=== PATIENT | male | born 1935 | race Caucasian/White ===

== ENCOUNTER → 2023-12-06 09:04 | Outpatient (REF) | payer OTHER, SELFPAY ==
[2023-12-06 09:47] LABS: Ammonia < 9 umol/L (9-30)
[2023-12-06 09:52] LABS: INR 0.99; PT 12.9 Sec (11.4-14.6)
[2023-12-06 09:53] LABS: APTT 30.3 Sec (23.4-35.0)
[2023-12-06 09:59] LABS: ALT (SGPT) 41 U/L (0-50); AST (SGOT) 38 U/L (17-59); Albumin 4.5 g/dl (3.5-5.0); Alkaline Phosphatase 99 U/L (38-126); Blood Urea Nitrogen 20 mg/dl (9-20); Calcium 10.3 mg/dl (8.4-10.2); Carbon Dioxide 28 mmol/L (22-30); Chloride 100 mmol/L (98-107); Glucose 98 mg/dl (70-99); Potassium 3.8 mmol/L (3.5-5.1); Sodium 134 mmol/L (135-145); Total Bilirubin 0.5 mg/dl (0.2-1.3); Total Protein 7.3 g/dl (6.3-8.2); eGFR > 60.00
[2023-12-06 10:35] LABS: AFP Male/Tumor Marker 1.14 ng/ml
== END ==
LOC: REG 09:04
PROVIDERS: ATTENDING PHYSICIAN Internal Medicine Gastroenterology; FAMILY PHYSICIAN Internal Medicine; REFERRING PHYSICIAN Physician Assistant Medical
DX: K74.60 Unspecified cirrhosis of liver (principal); L29.8 Other pruritus
CPT/HCPCS: 36415; 80053; 82105; 82140; 85610; 85730

== ENCOUNTER → 2023-12-08 08:40 | Outpatient (REF) | payer OTHER, SELFPAY ==
[2023-12-08 12:48] LABS: % Basophils 0.5 % (0-2); % Eosinophils 1.1 % (0-6); % Immature Granulocytes 1.2 % (0-0.5); % Lymphocytes 17.9 % (20.5-51.1); % Monocytes 9.3 % (1.7-9.3); Absolute Eosinophils 0.1 10^3/uL (0-0.7); Absolute Immature Granulocytes 0.1 10^3/uL (0-0.05); Absolute Lymphocytes 1.5 10^3/uL (1.2-3.4); Absolute Monocytes 0.8 10^3/uL (0.1-0.6); Absolute Neutrophils 5.8 10^3/uL (1.4-6.5); Hematocrit 38.8 % (39.0-52.0); Hemoglobin 13.3 g/dL (13.0-18.0); Mean Corp Hgb Conc. 34.3 g/dL (33.0-37.0); Mean Corpuscular Hgb 33.5 pg (27.0-31.0); Mean Corpuscular Volume 97.7 fL (80.0-94.0); Mean Platelet Volume 10.1 fL (7.4-10.4); Nucleated Red Blood Cells % 0 % (-); Platelet Count 144 10^3/uL (130-400); Red Blood Cell Count 3.97 10^6/uL (4.70-6.10); White Blood Cell Count 8.3 10^3/uL (4.8-10.8)
[2023-12-08 12:59] LABS: ALT (SGPT) 40 U/L (0-50); AST (SGOT) 37 U/L (17-59); Albumin 4.2 g/dl (3.5-5.0); Alkaline Phosphatase 84 U/L (38-126); Blood Urea Nitrogen 19 mg/dl (9-20); Calcium 10.2 mg/dl (8.4-10.2); Carbon Dioxide 29 mmol/L (22-30); Chloride 99 mmol/L (98-107); Glucose 94 mg/dl (70-99); Iron 111 ug/dl (49-181); Potassium 4.7 mmol/L (3.5-5.1); Sodium 136 mmol/L (135-145); Total Bilirubin 0.6 mg/dl (0.2-1.3); Total Protein 6.9 g/dl (6.3-8.2); eGFR > 60.00
[2023-12-08 13:09] LABS: Percent Saturation 39 % (20-50); Total Iron Binding Capacity 284 ug/dl (261-462)
[2023-12-08 13:14] LABS: Free T4 1.23 ng/dl (0.78-2.19)
[2023-12-08 13:28] LABS: TSH 0.92 uIU/ml (0.47-4.68)
[2023-12-08 14:10] LABS: Glycohemoglobin (HgbA1c) 5.7 % (4.0-5.6)
== END ==
LOC: HWLAB 08:40
PROVIDERS: ATTENDING PHYSICIAN Physician Assistant Medical; FAMILY PHYSICIAN Internal Medicine
DX: L29.8 Other pruritus (principal)
CPT/HCPCS: 36415; 80053; 82248; 83036; 83540; 83550; 84439; 84443; 85025

== ENCOUNTER → 2023-12-14 13:22 | Outpatient (REF) | payer OTHER, SELFPAY | LOC: HWRAD 13:22 | PROVIDERS: ATTENDING PHYSICIAN Internal Medicine | DX: R22.32 Localized swelling, mass and lump, left upper limb (principal) | CPT/HCPCS: 76882 ==

== ENCOUNTER → 2023-12-22 07:30 | Outpatient (REF) | payer OTHER, SELFPAY | LOC: PAVMRI 07:30 | PROVIDERS: ATTENDING PHYSICIAN Internal Medicine Gastroenterology; FAMILY PHYSICIAN Internal Medicine | DX: K74.60 Unspecified cirrhosis of liver (principal) | CPT/HCPCS: 74183; A9581 ==

== ENCOUNTER → 2024-01-17 08:34 | Outpatient (REF) | payer OTHER, SELFPAY ==
[2024-01-17 11:40] LABS: % Basophils 0.6 % (0-2); % Eosinophils 1.4 % (0-6); % Immature Granulocytes 1.2 % (0-0.5); % Lymphocytes 15.9 % (20.5-51.1); % Neutrophils 71.9 % (42.2-75.2); Absolute Basophils 0.1 10^3/uL (0-0.2); Absolute Eosinophils 0.2 10^3/uL (0-0.7); Absolute Immature Granulocytes 0.1 10^3/uL (0-0.05); Absolute Lymphocytes 1.7 10^3/uL (1.2-3.4); Absolute Monocytes 0.9 10^3/uL (0.1-0.6); Absolute Neutrophils 7.4 10^3/uL (1.4-6.5); Hematocrit 38.5 % (39.0-52.0); Hemoglobin 13.4 g/dL (13.0-18.0); Mean Corp Hgb Conc. 34.8 g/dL (33.0-37.0); Mean Corpuscular Hgb 34.1 pg (27.0-31.0); Mean Platelet Volume 9.8 fL (7.4-10.4); Nucleated Red Blood Cells % 0 % (-); Platelet Count 157 10^3/uL (130-400); Red Blood Cell Count 3.93 10^6/uL (4.70-6.10); Red Cell Dist. Width 14.4 % (11.5-14.5); White Blood Cell Count 10.4 10^3/uL (4.8-10.8)
[2024-01-17 11:45] LABS: ALT (SGPT) 52 U/L (0-50); AST (SGOT) 36 U/L (17-59); Alkaline Phosphatase 95 U/L (38-126); Blood Urea Nitrogen 20 mg/dl (9-20); Calcium 10.3 mg/dl (8.4-10.2); Carbon Dioxide 29 mmol/L (22-30); Chloride 103 mmol/L (98-107); Glucose 91 mg/dl (70-99); Potassium 4.1 mmol/L (3.5-5.1); Sodium 135 mmol/L (135-145); Total Bilirubin 0.6 mg/dl (0.2-1.3); Total Protein 6.7 g/dl (6.3-8.2); Uric Acid 4.9 mg/dl (3.5-8.5); eGFR > 60.00
[2024-01-17 11:50] LABS: C-Reactive Protein < 5.00 mg/L (0.0-10.00)
[2024-01-17 11:53] LABS: Erythrocyte Sed Rate 26 mm/hour (0-20)
== END ==
LOC: HWLAB 08:34
PROVIDERS: ATTENDING PHYSICIAN Internal Medicine Rheumatology; FAMILY PHYSICIAN Internal Medicine; REFERRING PHYSICIAN Internal Medicine Interventional Cardiology
DX: M11.20 Other chondrocalcinosis, unspecified site (principal); M1A.09X0 Idiopathic chronic gout, multiple sites, without tophus (tophi); R94.5 Abnormal results of liver function studies; Z51.81 Encounter for therapeutic drug level monitoring
CPT/HCPCS: 36415; 80053; 84550; 85025; 85652; 86140

== ENCOUNTER → 2024-01-31 08:57 | Outpatient (REF) | payer OTHER, SELFPAY ==
[2024-01-31 12:11] LABS: HDL Cholesterol 81 mg/dl; LDL Cholesterol, Calculated 78 mg/dl; Total Cholesterol 172 mg/dl (50-199); Triglyceride 65 mg/dl (10-149); Very Low Density Lipoprotein 13 mg/dl (0-30)
== END ==
LOC: HWLAB 08:57
PROVIDERS: ATTENDING PHYSICIAN Internal Medicine
DX: E78.5 Hyperlipidemia, unspecified (principal)
CPT/HCPCS: 36415; 80061

== ENCOUNTER → 2024-04-23 09:02 | Outpatient (REF) | payer OTHER, SELFPAY ==
[2024-04-23 11:39] LABS: % Basophils 0.6 % (0-2); % Eosinophils 1.8 % (0-6); % Immature Granulocytes 0.8 % (0-0.5); % Monocytes 10.5 % (1.7-9.3); % Neutrophils 70.3 % (42.2-75.2); Absolute Basophils 0.1 10^3/uL (0-0.2); Absolute Eosinophils 0.2 10^3/uL (0-0.7); Absolute Immature Granulocytes 0.1 10^3/uL (0-0.05); Absolute Lymphocytes 1.3 10^3/uL (1.2-3.4); Absolute Monocytes 0.9 10^3/uL (0.1-0.6); Absolute Neutrophils 5.8 10^3/uL (1.4-6.5); Hemoglobin 12.4 g/dL (13.0-18.0); Mean Corp Hgb Conc. 34.4 g/dL (33.0-37.0); Mean Corpuscular Hgb 33.3 pg (27.0-31.0); Mean Corpuscular Volume 96.8 fL (80.0-94.0); Mean Platelet Volume 10.2 fL (7.4-10.4); Nucleated Red Blood Cells % 0 % (-); Platelet Count 164 10^3/uL (130-400); Red Blood Cell Count 3.72 10^6/uL (4.70-6.10); Red Cell Dist. Width 13.7 % (11.5-14.5); White Blood Cell Count 8.3 10^3/uL (4.8-10.8)
[2024-04-23 11:51] LABS: ALT (SGPT) 39 U/L (0-50); AST (SGOT) 34 U/L (17-59); Albumin 3.9 g/dl (3.5-5.0); Alkaline Phosphatase 113 U/L (38-126); Blood Urea Nitrogen 19 mg/dl (9-20); Calcium 9.9 mg/dl (8.4-10.2); Carbon Dioxide 27 mmol/L (22-30); Chloride 102 mmol/L (98-107); Glucose 92 mg/dl (70-99); Potassium 4.3 mmol/L (3.5-5.1); Sodium 134 mmol/L (135-145); Total Bilirubin 0.5 mg/dl (0.2-1.3); Total Protein 6.3 g/dl (6.3-8.2); Uric Acid 4.4 mg/dl (3.5-8.5); eGFR > 60.00
[2024-04-23 11:55] LABS: C-Reactive Protein < 5.00 mg/L (0.0-10.00)
[2024-04-23 12:01] LABS: Erythrocyte Sed Rate 24 mm/hour (0-20)
[2024-04-23 12:25] LABS: PSA, Total - Diagnostic 0.28 ng/ml (0.0-4.0)
== END ==
LOC: HWLAB 09:02
PROVIDERS: ATTENDING PHYSICIAN Specialist; FAMILY PHYSICIAN Internal Medicine; OTHER PHYSICIAN Internal Medicine Gastroenterology; REFERRING PHYSICIAN Internal Medicine Rheumatology
DX: C61 Malignant neoplasm of prostate (principal); M11.20 Other chondrocalcinosis, unspecified site; M1A.09X0 Idiopathic chronic gout, multiple sites, without tophus (tophi); R94.5 Abnormal results of liver function studies; Z51.81 Encounter for therapeutic drug level monitoring
CPT/HCPCS: 36415; 80053; 84153; 84550; 85025; 85652; 86140

== ENCOUNTER 2024-04-29 16:10 | Emergency (ER) | payer OTHER, SELFPAY ==
[2024-04-29 16:14] VITALS: BP 137/65
[2024-04-29 16:15] VITALS: BMI 23.2
[2024-04-29 16:16] VITALS: BP 137/65
--- NOTE | 2024-04-29 16:16 | ED.GENMED ---
History of Present Illness
General
Chief Complaint: Cold/Flu/URI Symptoms
Source: patient
Exam Limitations: none
Time Seen by Provider: 04/29/24 16:12
Nursing documentation reviewed up to this point in time: agreed with
History of Present Illness
History of Present Illness:
Patient is a 88-year-old male with past medical history of hyperlipidemia aortic valve replacement on aspirin only recent diagnosis of cirrhosis of the liver prostate cancer presents to the ER for evaluation. Patient reports for the past 2 days he
is felt very sick weak and has had a cough and he is tested positive for COVID. He feels very weak and could not even get a with EMS assistance. He denies any shortness of breath but he does complain of a cough. He lives at home with his
who has leukemia. He has not taken anything for fever chills today.
Past History
Past History
ED Past Medical History: Hypercholesterolemia and Other (Gout)
Social History
Tobacco: Former smoker
Alcohol: None
Drug: None
Personal:
Living: with family
Review of Systems
Review of Systems
Allergies reviewed?: Yes
All Other Systems: ROS reviewed and negative except as documented in HPI and ROS
Constitutional: Reports fever, fatigue and chills
EENT: Reports no symptoms
Respiratory: Reports cough; Denies trouble breathing
Cardiac: Reports no symptoms
ABD/GI: Reports no symptoms
: Reports no symptoms
Musculoskeletal: Reports no symptoms
Skin: Reports no symptoms
Neurological: Reports no symptoms
Psychiatric: Reports no symptoms
Phy Exam
General Physical Exam
General Presentation: no apparent distress
General age: appears stated age
General Skin: warm and dry
General Habitus: normal
General Mental: alert
General Hydration: appears well hydrated
Cardiovascular Exam
Cardiovascular Exam: regular rate/rhythm, no murmur and normal peripheral pulses
Pulmonary Exam
Pulmonary Exam: lungs clear and no respiratory distress
Neurological Exam
Neurological Exam: alert and oriented x3
Musculoskeletal Exam
Musculoskeletal Exam: full ROM
Skin Exam
Skin Exam: normal color and warm/dry
Psychiatric Exam
Psychiatric Exam: normal mood/affect
Course
Orders/Labs/Results
Orders:
Orders
04/29/24 16:18
EKG [Electrocardiogram (*1)] Urgent
Reason for Study: Fatigue / Weakness
EKG- Treatment ONCE
04/29/24 16:23
Complete Blood Count/With Diff Urgent
Comprehensive Metabolic Panel Urgent
04/29/24 16:37
Chest [CR Chest - 2 Views ] Urgent
Comment:
Reason For Exam: cough
04/29/24 17:01
COVID-19 Antigen Urgent
Source: Nasal Swab
04/29/24 17:04
Benzonatate [Tessalon Perles] 200 mg PO NOW STA
Ibuprofen [Motrin] 400 mg PO NOW STA
Abnormal Lab Results
04/29/24 04/29/24
16:23 17:01
RBC 3.91 L 10^6/uL
(4.70-6.10)
Hct 38.0 L %
(39.0-52.0)
MCV 97.2 H fL
(80.0-94.0)
MCH 33.5 H pg
(27.0-31.0)
Absolute Lymphs (auto) 0.6 L 10^3/uL
(1.2-3.4)
Absolute Monos (auto) 0.8 H 10^3/uL
(0.1-0.6)
Neutrophils % 79.1 H %
(42.2-75.2)
Lymphocytes % 8.5 L %
(20.5-51.1)
Monocytes % 10.9 H %
(1.7-9.3)
Sodium 130 L mmol/L
(135-145)
Glucose 127 H mg/dl
(70-99)
ALT 60 H U/L
(0-50)
SARS-CoV-2 Antigen Positive A
(Negative)
04/29/24 16:23
04/29/24 16:23
Vital Signs
Initial and Last Documented VS:
Initial Vital Signs
BP
137/65
04/29/24 16:14
Last Documented Vital Signs
Temp Pulse Resp BP Pulse Ox
99.0 F 88 20 124/62 94
04/29/24 19:10 04/29/24 19:10 04/29/24 19:10 04/29/24 19:10 04/29/24 19:10
Oracle Dba consulted with Physician
Oracle Dba consulted with physician?: Yes
Name of Physician Consulted: Hilda
MDM/Problems Addressed
Differential Diagnosis Includes:
Not limited to COVID dehydration pneumonia
MDM/Problems Addressed:
Patient is an 88-year-old male with past medical history as documented above presents for evaluation of weakness. Patient was tested positive for COVID yesterday and has felt very weak which is what prompted him to call the ambulance. He feels
that he is unable to take care of himself due to his weakness. He reports he can barely walk. Patient presents with a temperature of 102.7 has not taken Tylenol Motrin. He has recent diagnosis of cirrhosis will order Motrin and hold off on
Tylenol.
1924: Patient feeling much better drinking fluids here ambulating around the room and feels well enough to go home. He is very nontoxic-appearing his lungs are clear he is not hypoxic he has a normal white count no acute findings on chest x-ray.
Sodium is mildly low. He tells me he is recently worked up for possible liver cirrhosis. I reviewed recent imaging from December 2023 from MRI of the abdomen which shows liver has cirrhotic morphology and contour no evidence of focal hepatic lesion
no evidence for portal hypertension or ascites. Patient has minimally elevated ALT but normal bilirubin and all other labs normal.
I did offer patient Paxlovid as this is reasonable based on age but he does decline. He is very well-appearing and safe for discharge. I reviewed with patient the importance of following up with family doctor for recheck of sodium staying
well-hydrated a small prescription for Tessalon Perles was also sent to pharmacy.
Case discussed with ED physician
Chronic conditions affecting care:
History of previous prostate cancer hyperlipidemia recent working diagnosis of cirrhosis
*Critical Care Note
Total Time (30-74mins, 75-104mins- exclusive of procedures): Not Applicable
ED Attending Note
-
Portions of this chart may have been created with voice recognition software.� Occasional wrong word or��sound alike� substitutions may have occurred due to the inherent limitations of voice recognition software.
Discharge Plan
Departure
Patient Disposition: Home (Routine Discharge)
Date of Disposition: 04/29/24
Time of Disposition: 19:21
Patient with high blood pressure during this ER visit?: No
Condition: Fair
Covid-19: Confirmed COVID-19
Discharge Problem:
COVID-19
Instructions: Fever, Adult (DC), COVID-19 ED, BLOOD PRESSURE
Prescriptions:
New
benzonatate 200 mg capsule
200 mg PO TID PRN (Reason: Cough) Qty: 10 0RF
No Action
cyanocobalamin (vitamin B-12) 1,000 MCG tablet
1,000 mcg PO DAILY
ascorbic acid (vitamin C) [Vitamin C] 500 MG tablet
500 mg PO DAILY
magnesium 250 MG tablet
250 mg PO DAILY
cholecalciferol (vitamin D3) 125 MCG tablet,disintegrating
125 mcg PO DAILY
allopurinol 300 MG tablet
300 mg PO DAILY
finasteride 5 MG tablet
5 mg PO QPM
loratadine 10 MG tablet
10 mg PO DAILY
acetaminophen 325 MG tablet
650 mg PO Q4HPRN PRN (Reason: KEE, mild pain, or fever >101F) 0RF
atorvastatin [Lipitor] 10 mg Tablet
10 mg PO QPM
amlodipine 5 mg Tablet
5 mg PO BID
metoprolol succinate 25 MG tablet extended release 24 hr
12.5 mg PO DAILY
aspirin 81 MG tablet,chewable
81 mg PO Q48H
Referrals:
UNKNOWN - PT NOT,INTERVIEWE [Family Provider] -
Activity Restrictions/Additional Instructions:
Be sure to stay well-hydrated drink plenty of fluids. You may take ibuprofen 400 mg every 8 hours as needed for fever chills body aches. A prescription for Tessalon Perles, cough medicine was sent to your pharmacy take as directed. Please have
your sodium rechecked in the next week as it was mildly low here in the ER.
Follow-up with your family doctor the next several days for reevaluation. Return if any worsening of symptoms of difficulty breathing or any further concerns.
Interventions
Interventions:
*Risk Screen - Suicide Last Done: 04/29/24 16:20
*General Assessment Last Done: 04/29/24 16:20
*Neglect/Abuse Screening Last Done: 04/29/24 16:26
ED- Fall Risk Assessment Last Done: 04/29/24 16:25
*ED COVID-19 Vaccine History Last Done: 04/29/24 16:20
ED- Pulmonary Assessment Last Done: 04/29/24 16:25
Discharge Date and Time
Print Language: SLOVENIAN
[2024-04-29 16:39] LABS: % Basophils 0.7 % (0-2); % Eosinophils 0.3 % (0-6); % Immature Granulocytes 0.5 % (0-0.5); % Lymphocytes 8.5 % (20.5-51.1); % Monocytes 10.9 % (1.7-9.3); % Neutrophils 79.1 % (42.2-75.2); Absolute Basophils 0.1 10^3/uL (0-0.2); Absolute Lymphocytes 0.6 10^3/uL (1.2-3.4); Absolute Monocytes 0.8 10^3/uL (0.1-0.6); Hemoglobin 13.1 g/dL (13.0-18.0); Mean Corp Hgb Conc. 34.5 g/dL (33.0-37.0); Mean Corpuscular Hgb 33.5 pg (27.0-31.0); Mean Corpuscular Volume 97.2 fL (80.0-94.0); Mean Platelet Volume 9.8 fL (7.4-10.4); Nucleated Red Blood Cells % 0 % (-); Platelet Count 142 10^3/uL (130-400); Red Blood Cell Count 3.91 10^6/uL (4.70-6.10); Red Cell Dist. Width 13.6 % (11.5-14.5); White Blood Cell Count 7.5 10^3/uL (4.8-10.8)
[2024-04-29 16:54] LABS: ALT (SGPT) 60 U/L (0-50); AST (SGOT) 57 U/L (17-59); Albumin 4.2 g/dl (3.5-5.0); Alkaline Phosphatase 115 U/L (38-126); Blood Urea Nitrogen 10 mg/dl (9-20); Carbon Dioxide 24 mmol/L (22-30); Chloride 100 mmol/L (98-107); Estimated Creatinine Clearance 54 ml/min; Glucose 127 mg/dl (70-99); Potassium 3.8 mmol/L (3.5-5.1); Sodium 130 mmol/L (135-145); Total Bilirubin 0.7 mg/dl (0.2-1.3); Total Protein 6.7 g/dl (6.3-8.2); eGFR > 60.00
[2024-04-29] MEDS: MOTRIN 400 MG PO (17:09)
[2024-04-29] MEDS: TESSALON PERLES 200 MG PO (17:09)
[2024-04-29 17:20] LABS: COVID-19 Antigen Positive (Negative)
[2024-04-29 19:10] VITALS: BP 124/62
== END 2024-04-29 19:48 | disposition home or self-care (01) ==
LOC: EMR 16:10
PROVIDERS: Nurse Practitioner; EMERGENCY PHYSICIAN Emergency Medicine
DX: U07.1 COVID-19 (principal); E78.00 Pure hypercholesterolemia, unspecified; Z95.2 Presence of prosthetic heart valve; K74.60 Unspecified cirrhosis of liver; Z85.46 Personal history of malignant neoplasm of prostate; Z87.891 Personal history of nicotine dependence
CPT/HCPCS: 99283; 71046; 80053; 85025; 87811; 93005

== ENCOUNTER → 2024-06-11 08:29 | Outpatient (REF) | payer OTHER, SELFPAY ==
[2024-06-11 10:01] LABS: % Basophils 0.5 % (0-2); % Eosinophils 1.1 % (0-6); % Immature Granulocytes 0.9 % (0-0.5); % Lymphocytes 20.3 % (20.5-51.1); % Monocytes 8.4 % (1.7-9.3); % Neutrophils 68.8 % (42.2-75.2); Absolute Eosinophils 0.1 10^3/uL (0-0.7); Absolute Immature Granulocytes 0.1 10^3/uL (0-0.05); Absolute Lymphocytes 1.5 10^3/uL (1.2-3.4); Absolute Monocytes 0.6 10^3/uL (0.1-0.6); Absolute Neutrophils 5.1 10^3/uL (1.4-6.5); Hematocrit 40.3 % (39.0-52.0); Hemoglobin 14.2 g/dL (13.0-18.0); Mean Corp Hgb Conc. 35.2 g/dL (33.0-37.0); Mean Corpuscular Hgb 34.1 pg (27.0-31.0); Mean Corpuscular Volume 96.9 fL (80.0-94.0); Mean Platelet Volume 9.5 fL (7.4-10.4); Nucleated Red Blood Cells % 0 % (-); Platelet Count 122 10^3/uL (130-400); Red Blood Cell Count 4.16 10^6/uL (4.70-6.10); Red Cell Dist. Width 14.5 % (11.5-14.5); White Blood Cell Count 7.4 10^3/uL (4.8-10.8)
[2024-06-11 10:19] LABS: ALT (SGPT) 34 U/L (0-50); AST (SGOT) 32 U/L (17-59); Albumin 4.4 g/dl (3.5-5.0); Alkaline Phosphatase 92 U/L (38-126); Blood Urea Nitrogen 20 mg/dl (9-20); Calcium 10.1 mg/dl (8.4-10.2); Carbon Dioxide 25 mmol/L (22-30); Chloride 102 mmol/L (98-107); Glucose 91 mg/dl (70-99); Potassium 4.3 mmol/L (3.5-5.1); Sodium 139 mmol/L (135-145); Total Bilirubin 0.6 mg/dl (0.2-1.3); Total Protein 7.1 g/dl (6.3-8.2); eGFR > 60.00
[2024-06-11 11:17] LABS: IgA 303 mg/dl (70-400); IgG 901 mg/dl (700-1600); IgM 50 mg/dl (40-230)
[2024-06-11 21:06] LABS: AFP Male/Tumor Marker 1.03 ng/ml
[2024-06-12 13:54] LABS: Angiotensin-1-converting Enzym 31 U/L (16-85)
[2024-06-12 19:30] LABS: Copper, Serum 122.4 ug/dL (70.0-140.0)
[2024-06-12 23:22] LABS: Insulin, Random 16 uIU/mL
[2024-06-13 05:32] LABS: F-Actin Antibody IgG 5 Units (0-19)
== END ==
LOC: HWLAB 08:29
PROVIDERS: ATTENDING PHYSICIAN Internal Medicine Transplant Hepatology; FAMILY PHYSICIAN Internal Medicine
DX: K74.60 Unspecified cirrhosis of liver (principal); K75.81 Nonalcoholic steatohepatitis (NASH)
CPT/HCPCS: 36415; 80053; 81256; 82105; 82164; 82525; 82728; 82784; 83525; 84155; 84165; 85025; 85610; 86015

== ENCOUNTER → 2024-06-17 09:24 | Outpatient (REF) | payer OTHER, SELFPAY | LOC: MRI 09:24 | PROVIDERS: ATTENDING PHYSICIAN Internal Medicine Transplant Hepatology; FAMILY PHYSICIAN Internal Medicine | DX: K74.60 Unspecified cirrhosis of liver (principal); K75.81 Nonalcoholic steatohepatitis (NASH) | CPT/HCPCS: 74183; A9581 ==

== ENCOUNTER → 2024-07-05 09:57 | Outpatient (REF) | payer OTHER, SELFPAY | LOC: HWRAD 09:57 | PROVIDERS: ATTENDING PHYSICIAN Physician Assistant; FAMILY PHYSICIAN Internal Medicine | DX: M79.672 Pain in left foot (principal) | CPT/HCPCS: 73630 ==

== ENCOUNTER → 2024-07-16 08:42 | Outpatient (REF) | payer OTHER, SELFPAY ==
[2024-07-16 12:22] LABS: % Basophils 0.7 % (0-2); % Eosinophils 2.4 % (0-6); % Immature Granulocytes 1.7 % (0-0.5); % Lymphocytes 19.1 % (20.5-51.1); % Monocytes 9.9 % (1.7-9.3); % Neutrophils 66.2 % (42.2-75.2); Absolute Basophils 0.1 10^3/uL (0-0.2); Absolute Eosinophils 0.2 10^3/uL (0-0.7); Absolute Immature Granulocytes 0.1 10^3/uL (0-0.05); Absolute Lymphocytes 1.5 10^3/uL (1.2-3.4); Absolute Monocytes 0.8 10^3/uL (0.1-0.6); Hemoglobin 13.2 g/dL (13.0-18.0); Mean Corp Hgb Conc. 34.7 g/dL (33.0-37.0); Mean Corpuscular Hgb 32.8 pg (27.0-31.0); Mean Corpuscular Volume 94.5 fL (80.0-94.0); Mean Platelet Volume 9.9 fL (7.4-10.4); Nucleated Red Blood Cells % 0 % (-); Platelet Count 191 10^3/uL (130-400); Red Blood Cell Count 4.02 10^6/uL (4.70-6.10); Red Cell Dist. Width 14.4 % (11.5-14.5); White Blood Cell Count 7.6 10^3/uL (4.8-10.8)
[2024-07-16 12:31] LABS: ALT (SGPT) 38 U/L (0-50); AST (SGOT) 33 U/L (17-59); Alkaline Phosphatase 88 U/L (38-126); Blood Urea Nitrogen 16 mg/dl (9-20); Calcium 9.8 mg/dl (8.4-10.2); Carbon Dioxide 26 mmol/L (22-30); Chloride 100 mmol/L (98-107); Glucose 89 mg/dl (70-99); Potassium 4.4 mmol/L (3.5-5.1); Sodium 137 mmol/L (135-145); Total Bilirubin 0.5 mg/dl (0.2-1.3); Total Protein 6.5 g/dl (6.3-8.2); eGFR > 60.00
[2024-07-16 12:35] LABS: C-Reactive Protein < 5.00 mg/L (0.0-10.00)
[2024-07-16 13:29] LABS: Uric Acid 6.3 mg/dl (3.5-8.5)
[2024-07-16 13:52] LABS: Erythrocyte Sed Rate 24 mm/hour (0-20)
== END ==
LOC: HWLAB 08:42
PROVIDERS: ATTENDING PHYSICIAN Internal Medicine Rheumatology; FAMILY PHYSICIAN Internal Medicine; OTHER PHYSICIAN Internal Medicine Transplant Hepatology; REFERRING PHYSICIAN Internal Medicine Interventional Cardiology
DX: D64.9 Anemia, unspecified (principal); M11.20 Other chondrocalcinosis, unspecified site; M17.0 Bilateral primary osteoarthritis of knee; M1A.09X0 Idiopathic chronic gout, multiple sites, without tophus (tophi); Z51.81 Encounter for therapeutic drug level monitoring
CPT/HCPCS: 36415; 80053; 84550; 85025; 85652; 86140

== ENCOUNTER 2024-07-26 09:56 | Inpatient (IN) | payer OTHER, SELFPAY ==
[2024-07-26] VITALS (8 sets, daily range): BP systolic 125–140; BP diastolic 56–92; BMI 25.2; BMI 22.5
--- NOTE | 2024-07-26 02:34 | ED.GENMED ---
History of Present Illness
<JINA Cooley - Last Filed: 07/26/24 22:27>
General
Chief Complaint: Musculo-Skeletal Complaint
Source: patient
Exam Limitations: none
Time Seen by Provider: 07/26/24 02:16
History of Present Illness
History of Present Illness:
Patient is a 88yo M w/ PMH of gout who presents w/ R knee pain, swelling, warmth, & redness x2 days. Most recent gout attack was minor in 2nd L toe PIP 1 mo ago tx w/ cortisone injx. Previously taking allopurinol, stopped 2 mo ago due to cirrhosis.
Reports knee pain came on suddenly yesterday morning and has been worsening. Rates pain 10/10 and describes warmth feeling. Pain worse w/ movement and tender to touch. Describes sensation of feeling like something is in knee joint. Reports
associated nausea due to pain. Reports fever of 101. Pt states it feels like gout.
Past History
<JINA Cooley - Last Filed: 07/26/24 22:27>
Past History
ED Past Medical History: Hypercholesterolemia and Other (Gout)
Social History
Tobacco: Former smoker
Alcohol: None
Drug: None
Personal:
Living: with family
Review of Systems
<JINA Cooley - Last Filed: 07/26/24 22:27>
Review of Systems
Constitutional: Reports fever; Denies fatigue or chills
EENT: Denies sore throat or runny nose
Respiratory: Denies cough or trouble breathing
Cardiac: Denies chest pain or palpitations
ABD/GI: Reports nausea; Denies abdominal pain, vomiting, diarrhea or constipated
: Denies dysuria
Musculoskeletal: Reports joint pain and joint swelling; Denies muscle pain, muscle stiffness or neck pain
Skin: Denies itching or rash
Neurological: Denies dizzy, headache, weakness or numbness
Phy Exam
<Karena Huggins [facility] - Last Filed: 07/26/24 22:27>
General Physical Exam
General Presentation: moderate distress
General age: appears stated age
General Skin: warm and dry
General Habitus: normal
General Mental: alert
Cardiovascular Exam
Cardiovascular Exam: regular rate/rhythm, no edema, no gallop and no murmur
Pulmonary Exam
Pulmonary Exam: lungs clear, no respiratory distress, no rales, no crackles, no rhonchi and no wheezing
Neurological Exam
Neurological Exam: alert, oriented x3, no motor deficits, no sensory deficits and speech normal
Musculoskeletal Exam
Musculoskeletal Exam: joint swelling (R knee: visibly swollen. Diffuse warmth. Medial erythema. severe tenderness to palpation. )
Course
<Karena Huggins [facility] - Last Filed: 07/26/24 22:27>
Orders/Labs/Results
Orders:
Orders
07/26/24 02:17
C-Reactive Protein Urgent
Comment: ADD ON
CMP [Comprehensive Metabolic Panel] Urgent
Complete Blood Count/With Diff Urgent
Erythrocyte Sed Rate Urgent
Comment: ADD ON
Uric Acid Urgent
07/26/24 02:49
Add On- LAB Urgent
Tests Added?: uric acid; sed rate; CRP
07/26/24 02:50
Ketorolac [Toradol] 30 mg IV NOW STA
07/26/24 03:49
Body Fluid Cell Count Urgent
What is the Body Fluid: joint
Date Specimen was Collected: 07/26/24
Time Specimen was Collected: 03:48
Comment: with DIFF
Body Fluid Crystals Urgent
What is the Body Fluid: joint
Date Specimen was Collected: 07/26/24
Time Specimen was Collected: 03:48
Lyme Progressive Urgent
Fluid Culture with Gram Stain Urgent
ELIOT Source: Joint Fluid
Specimen Description:
Date Specimen was Collected: 07/26/24
Time Specimen was Collected: 03:48
07/26/24 Breakfast
Cholesterol Lowering
At Your Request: Full Participation
Cholesterol Lowering: Sodium, 2 Gram
07/26/24 07:43
Vancomycin [Vancocin] 2,000 mg 0.9% Sodium Chloride 500 ml [Nss] 500 ml IV NOW
07/26/24 08:02
Vancomycin [Vancocin] 2,000 mg 0.9% Sodium Chloride 500 ml [Nss] 500 ml IV NOW
07/26/24 08:39
Blood Culture Urgent
ELIOT Source: Blood/Venous
Specimen Description:
Blood Culture Urgent
ELIOT Source: Blood/Venous
Specimen Description:
07/26/24 08:58
Admit/Transfer Patient As Directed
Co-Sign Provider:
Level of Care: Inpatient admission
Assign to:: Medical/Surgical
Physician / Group: Hospitalist
Diagnosis: Acute gout flare
Patient Condition: Fair
Reason for Hospitalization: Acute gout flare
Expected length of stay greater than two midnights?: Yes
ELOS- Estimated Length of Stay in days: 3
I certify the patient meets the requirements for IP care: Yes
07/26/24 09:07
Code Status As Directed
Resuscitation Status: Full Code
07/26/24 09:36
CR Knee- Right 4 Or More View* Routine
Comment:
Reason For Exam: Knee swelling
07/26/24 09:39
Dextrose 50%-Water [Dextrose 50% Syringe] 12.5 grams IV [id number] PRN
Glucagon [GlucaGen] 1 mg IM PRN PRN
07/26/24 09:40
Bedside Glucose Monitoring As Directed
Frequency: AC&HS
Additional Instructions:: Change to q6h if pt on TPN, tube feeding or not eating
07/26/24 09:46
EKG [Electrocardiogram (*1)] Routine
Reason for Study: Hypertension, Benign
07/26/24 10:28
0.9% Sodium Chloride 1000 ml [Nss] 1,000 ml IV 113 mls/hr
Acetaminophen [Tylenol] 650 mg PO Q4HPRN PRN
ipratropium bromide 2 spray NASAL DAILYPRN PRN
07/26/24 10:28
Activity As Directed
Activity Level: Out of Bed-Early Mobility
As Tolerated
Intake/ Output As Directed
Frequency: Per unit guidelines
Vital Signs As Directed
Frequency: Per unit guidelines
Weight As Directed
Frequency: Daily
Pulse Ox/spot Check [RESP] Routine
Quantity: 1
DX Deep Vein Thrombosis Video Routine
07/26/24 11:27
Benzonatate [Tessalon Perles] 200 mg PO TIDPRN PRN
07/26/24 11:30
Atorvastatin [Lipitor] 10 mg PO DAILY
Insulin Aspart Corrective Low [Novolog Flexpen-Low Resistance] See Protocol SC AC
Metoprolol Xl [Toprol Xl] 12.5 mg PO DAILY
Pantoprazole [Protonix] 40 mg PO DAILY
Prednisone [Deltasone] 40 mg PO DAILY
07/26/24 11:42
Urinalysis Reflex To Culture Routine
Date Specimen was Collected: 07/26/24
Time Specimen was Collected: 11:39
07/26/24 12:00
Amlodipine [Norvasc] 2.5 mg PO BID
07/26/24 18:00
Enoxaparin Sodium [Lovenox] 40 mg SC QPM
Finasteride [Proscar] 5 mg PO QPM
07/27/24 06:00
Basic Metabolic Panel IN AM
Complete Blood Count/No Diff IN AM
Glycohemoglobin (HgbA1c) IN AM
Magnesium IN AM
Prothrombin Time IN AM
07/27/24 08:00
Ascorbic Acid [Vitamin C] 500 mg PO DAILY
Aspirin Chewable [Low Strength Aspirin] 81 mg PO Q48H
Cholecalciferol (Vitamin D3) [VITAMIN D3 (cholecalciferol)] 125 mcg PO DAILY
Cyanocobalamin [Vitamin B-12] 1,000 mcg PO DAILY
Magnesium l-Lactate [Mag-Tab Sr] 84 mg PO DAILY
Abnormal Lab Results
07/26/24
02:17
WBC 10.9 H 10^3/uL
(4.8-10.8)
RBC 3.92 L 10^6/uL
(4.70-6.10)
Hct 37.1 L %
(39.0-52.0)
MCV 94.6 H fL
(80.0-94.0)
MCH 33.7 H pg
(27.0-31.0)
Abs Immat Gran (auto) 0.1 H 10^3/uL
(0-0.05)
Absolute Neuts (auto) 8.6 H 10^3/uL
(1.4-6.5)
Absolute Lymphs (auto) 0.8 L 10^3/uL
(1.2-3.4)
Absolute Monos (auto) 1.5 H 10^3/uL
(0.1-0.6)
Immature Gran % 0.7 H %
(0-0.5)
Neutrophils % 78.5 H %
(42.2-75.2)
Lymphocytes % 6.9 L %
(20.5-51.1)
Monocytes % 13.4 H %
(1.7-9.3)
ESR 39 H mm/hour
(0-20)
Sodium 133 L mmol/L
(135-145)
Chloride 95 L mmol/L
(98-107)
Glucose 139 H mg/dl
(70-99)
C-Reactive Protein 40.60 H mg/L
(0.0-10.00)
07/26/24 02:17
07/26/24 02:17
Vital Signs
Initial and Last Documented VS:
Initial Vital Signs
Temp Pulse Resp BP Pulse Ox
99.6 F 91 16 140/67 99
07/26/24 01:53 07/26/24 01:53 07/26/24 01:53 07/26/24 01:53 07/26/24 01:53
Last Documented Vital Signs
Temp Pulse Resp BP Pulse Ox
98.3 F 85 18 141/75 97
07/26/24 14:23 07/26/24 20:28 07/26/24 14:23 07/26/24 20:28 07/26/24 15:33
<Nikky Diaz, DO - Last Filed: 07/26/24 07:48>
Orders/Labs/Results
Orders:
Orders
07/26/24 02:17
C-Reactive Protein Urgent
Comment: ADD ON
CMP [Comprehensive Metabolic Panel] Urgent
Complete Blood Count/With Diff Urgent
Erythrocyte Sed Rate Urgent
Comment: ADD ON
Uric Acid Urgent
07/26/24 02:49
Add On- LAB Urgent
Tests Added?: uric acid; sed rate; CRP
07/26/24 02:50
Ketorolac [Toradol] 30 mg IV NOW STA
07/26/24 03:49
Body Fluid Cell Count Urgent
What is the Body Fluid: joint
Date Specimen was Collected: 07/26/24
Time Specimen was Collected: 03:48
Comment: with DIFF
Body Fluid Crystals Urgent
What is the Body Fluid: joint
Date Specimen was Collected: 07/26/24
Time Specimen was Collected: 03:48
Lyme Progressive Urgent
Fluid Culture with Gram Stain Urgent
ELIOT Source: Joint Fluid
Specimen Description:
Date Specimen was Collected: 07/26/24
Time Specimen was Collected: 03:48
07/26/24 Breakfast
Cholesterol Lowering
At Your Request: Full Participation
Cholesterol Lowering: Sodium, 2 Gram
07/26/24 07:43
Vancomycin [Vancocin] 2,000 mg 0.9% Sodium Chloride 500 ml [Nss] 500 ml IV NOW
07/26/24 08:02
Vancomycin [Vancocin] 2,000 mg 0.9% Sodium Chloride 500 ml [Nss] 500 ml IV NOW
07/26/24 08:39
Blood Culture Urgent
ELIOT Source: Blood/Venous
Specimen Description:
Blood Culture Urgent
ELIOT Source: Blood/Venous
Specimen Description:
07/26/24 08:58
Admit/Transfer Patient As Directed
Co-Sign Provider:
Level of Care: Inpatient admission
Assign to:: Medical/Surgical
Physician / Group: Hospitalist
Diagnosis: Acute gout flare
Patient Condition: Fair
Reason for Hospitalization: Acute gout flare
Expected length of stay greater than two midnights?: Yes
ELOS- Estimated Length of Stay in days: 3
I certify the patient meets the requirements for IP care: Yes
07/26/24 09:07
Code Status As Directed
Resuscitation Status: Full Code
07/26/24 09:36
CR Knee- Right 4 Or More View* Routine
Comment:
Reason For Exam: Knee swelling
07/26/24 09:39
Dextrose 50%-Water [Dextrose 50% Syringe] 12.5 grams IV R90FORE PRN
Glucagon [GlucaGen] 1 mg IM PRN PRN
07/26/24 09:40
Bedside Glucose Monitoring As Directed
Frequency: AC&HS
Additional Instructions:: Change to q6h if pt on TPN, tube feeding or not eating
07/26/24 09:46
EKG [Electrocardiogram (*1)] Routine
Reason for Study: Hypertension, Benign
07/26/24 10:28
0.9% Sodium Chloride 1000 ml [Nss] 1,000 ml IV 113 mls/hr
Acetaminophen [Tylenol] 650 mg PO Q4HPRN PRN
ipratropium bromide 2 spray NASAL DAILYPRN PRN
07/26/24 10:28
Activity As Directed
Activity Level: Out of Bed-Early Mobility
As Tolerated
Intake/ Output As Directed
Frequency: Per unit guidelines
Vital Signs As Directed
Frequency: Per unit guidelines
Weight As Directed
Frequency: Daily
Pulse Ox/spot Check [RESP] Routine
Quantity: 1
DX Deep Vein Thrombosis Video Routine
07/26/24 11:27
Benzonatate [Tessalon Perles] 200 mg PO TIDPRN PRN
07/26/24 11:30
Atorvastatin [Lipitor] 10 mg PO DAILY
Insulin Aspart Corrective Low [Novolog Flexpen-Low Resistance] See Protocol SC AC
Metoprolol Xl [Toprol Xl] 12.5 mg PO DAILY
Pantoprazole [Protonix] 40 mg PO DAILY
Prednisone [Deltasone] 40 mg PO DAILY
07/26/24 11:42
Urinalysis Reflex To Culture Routine
Date Specimen was Collected: 07/26/24
Time Specimen was Collected: 11:39
07/26/24 12:00
Amlodipine [Norvasc] 2.5 mg PO BID
07/26/24 18:00
Enoxaparin Sodium [Lovenox] 40 mg SC QPM
Finasteride [Proscar] 5 mg PO QPM
07/27/24 06:00
Basic Metabolic Panel IN AM
Complete Blood Count/No Diff IN AM
Glycohemoglobin (HgbA1c) IN AM
Magnesium IN AM
Prothrombin Time IN AM
07/27/24 08:00
Ascorbic Acid [Vitamin C] 500 mg PO DAILY
Aspirin Chewable [Low Strength Aspirin] 81 mg PO Q48H
Cholecalciferol (Vitamin D3) [VITAMIN D3 (cholecalciferol)] 125 mcg PO DAILY
Cyanocobalamin [Vitamin B-12] 1,000 mcg PO DAILY
Magnesium l-Lactate [Mag-Tab Sr] 84 mg PO DAILY
Abnormal Lab Results
07/26/24
02:17
WBC 10.9 H 10^3/uL
(4.8-10.8)
RBC 3.92 L 10^6/uL
(4.70-6.10)
Hct 37.1 L %
(39.0-52.0)
MCV 94.6 H fL
(80.0-94.0)
MCH 33.7 H pg
(27.0-31.0)
Abs Immat Gran (auto) 0.1 H 10^3/uL
(0-0.05)
Absolute Neuts (auto) 8.6 H 10^3/uL
(1.4-6.5)
Absolute Lymphs (auto) 0.8 L 10^3/uL
(1.2-3.4)
Absolute Monos (auto) 1.5 H 10^3/uL
(0.1-0.6)
Immature Gran % 0.7 H %
(0-0.5)
Neutrophils % 78.5 H %
(42.2-75.2)
Lymphocytes % 6.9 L %
(20.5-51.1)
Monocytes % 13.4 H %
(1.7-9.3)
ESR 39 H mm/hour
(0-20)
Sodium 133 L mmol/L
(135-145)
Chloride 95 L mmol/L
(98-107)
Glucose 139 H mg/dl
(70-99)
C-Reactive Protein 40.60 H mg/L
(0.0-10.00)
07/26/24 02:17
07/26/24 02:17
Vital Signs
Initial and Last Documented VS:
Initial Vital Signs
Temp Pulse Resp BP Pulse Ox
99.6 F 91 16 140/67 99
07/26/24 01:53 07/26/24 01:53 07/26/24 01:53 07/26/24 01:53 07/26/24 01:53
Last Documented Vital Signs
Temp Pulse Resp BP Pulse Ox
98.3 F 85 18 141/75 97
07/26/24 14:23 07/26/24 20:28 07/26/24 14:23 07/26/24 20:28 07/26/24 15:33
Procedures
<Nikky Diaz DO - Last Filed: 07/26/24 07:48>
Incision/Drainage/Joint Aspiration
Right Knee:
Anethesia: 1% Lidocaine with Epi and Added Na bicarb to local
Preparation: cleaned with Betadine
Type of procedure: aspiration
Nature of site: other (right knee effusion)
How much fluid was obtained?: number in mls (75)
Fluid description: cloudy, straw colored and blood tinged
Treatment: bandaid applied
<JINA Cooley - Last Filed: 07/26/24 22:27>
MDM/Problems Addressed
Differential Diagnosis Includes:
gout flare, infective arthritis, reactive arthritis
<JINA Cooley - Last Filed: 07/26/24 22:27>
*Critical Care Note
Total Time (30-74mins, 75-104mins- exclusive of procedures): Not Applicable
ED Attending Note
<JINA Cooley - Last Filed: 07/26/24 22:27>
-
Portions of this chart may have been created with voice recognition software.� Occasional wrong word or��sound alike� substitutions may have occurred due to the inherent limitations of voice recognition software.
<Nikky Diaz DO - Last Filed: 07/26/24 07:48>
ED Attending Note
Patient seen and examined by attending physician: Yes
I performed the substantive portion of visit, reviewed & personally made and approve the management plan that is documented in note by myself or MARIANO.: Yes
ED Attending Note:
This is an 88-year-old gentleman with history of hypertension, hyperlipidemia, prostate cancer, nonalcoholic cirrhosis of the liver as well as history of gout. Due to cirrhosis allopurinol was discontinued a few months ago and he states since then
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
Beginning 2 days ago he developed right knee pain, swelling that has gotten progressively worse over the past 2 days. He notes severe pain, swelling, chills with onset of fever tonight of 101 �F.
No insightful injury. Pain and swelling feels similar to previous episodes of gout and various other joints but has never suffered gout to his knee.
No previous surgical procedures nor recent instrumentation of his knee.
He took 1 Tylenol just prior to arrival.
GENERAL: 88-year-old gentleman appears his stated age, awake and alert, appears in mild distress related to pain. Low-grade fever noted.
EYE: anicteric
NECK: Supple, nontender, no meningismus, no significant adenopathy.
ENT: oral mucosa is moist. No rhinorrhea.
CARDIAC: Regular rate and rhythm. no murmur.
LUNGS: Clear breath sounds bilaterally, no acute respiratory distress, no wheezes/rales/rhonchi
ABDOMEN: Soft, nondistended, without focal tenderness
NEUROLOGICAL: Alert and oriented x3, no focal neuro deficits.
SKIN: Warm and dry, normal color, skin intact. No rash.
MUSCULOSKELETAL: No C/C/E. peripheral pulses are full and equal b/l.
Right knee has moderate effusion with mild erythema anteromedial aspect. Moderate generalized tenderness about the knee. Moderately restricted range of motion of right knee related to joint effusion.
PSYCH: Normal and appropriate interaction.
History and exam concerning for acute knee pain, effusion of right knee. Concerning for inflammatory arthropathy such as gout, other consideration is infectious arthropathy.
Will give an IV dose of Toradol for pain.
Will plan arthrocentesis of right knee for symptomatic relief as well as diagnosis of joint fluid.
07/26/2024 0746 AM
Patient is much more comfortable after arthrocentesis and removal of 75 cc of cloudy straw-colored slightly blood-tinged synovial fluid from right knee.
Joint fluid significant for greater than 63,000 WBCs, 95% PMNs. No crystals visualized. Gram stain shows many WBCs, no organisms.
Due to significant amount of WBCs and report of fever of 101F prior to arrival, significant concern for infected joint thus will admit to hospitalist service, initiate vancomycin, consider orthopedic evaluation.
Discharge Plan
Departure
Patient Disposition: Admit
Date of Disposition: 07/26/24
Time of Disposition: 07:45
Admit to: Med/Surg
Admit to doctor: Hospitalist
Presentation/result/management discussed w/ accepting MD/DO: Hospitalist
Discharge Problem:
acute inflammatory arthropathy R knee, Concern for infectious arthritis R knee
Interventions
Interventions:
*Risk Screen - Suicide Last Done: 07/26/24 02:05
*General Assessment Last Done: 07/26/24 02:05
*Neglect/Abuse Screening Last Done: 07/26/24 02:05
ED- Fall Risk Assessment Last Done: 07/26/24 02:05
*ED COVID-19 Vaccine History Last Done: 07/26/24 02:05
*Nursing Disposition Last Done: 07/26/24 14:07
ED-Musculoskeletal Assessment Last Done: 07/26/24 02:05
[2024-07-26 02:48] LABS: % Basophils 0.3 % (0-2); % Eosinophils 0.2 % (0-6); % Immature Granulocytes 0.7 % (0-0.5); % Lymphocytes 6.9 % (20.5-51.1); % Monocytes 13.4 % (1.7-9.3); % Neutrophils 78.5 % (42.2-75.2); Absolute Immature Granulocytes 0.1 10^3/uL (0-0.05); Absolute Lymphocytes 0.8 10^3/uL (1.2-3.4); Absolute Monocytes 1.5 10^3/uL (0.1-0.6); Absolute Neutrophils 8.6 10^3/uL (1.4-6.5); Hematocrit 37.1 % (39.0-52.0); Hemoglobin 13.2 g/dL (13.0-18.0); Mean Corp Hgb Conc. 35.6 g/dL (33.0-37.0); Mean Corpuscular Hgb 33.7 pg (27.0-31.0); Mean Corpuscular Volume 94.6 fL (80.0-94.0); Mean Platelet Volume 9.6 fL (7.4-10.4); Nucleated Red Blood Cells % 0 % (-); Platelet Count 154 10^3/uL (130-400); Red Blood Cell Count 3.92 10^6/uL (4.70-6.10); White Blood Cell Count 10.9 10^3/uL (4.8-10.8)
[2024-07-26 03:05] LABS: ALT (SGPT) 33 U/L (0-50); AST (SGOT) 32 U/L (17-59); Albumin 4.1 g/dl (3.5-5.0); Alkaline Phosphatase 88 U/L (38-126); Blood Urea Nitrogen 10 mg/dl (9-20); Calcium 9.8 mg/dl (8.4-10.2); Carbon Dioxide 25 mmol/L (22-30); Chloride 95 mmol/L (98-107); Estimated Creatinine Clearance 61 ml/min; Glucose 139 mg/dl (70-99); Potassium 4.4 mmol/L (3.5-5.1); Sodium 133 mmol/L (135-145); Total Bilirubin 0.9 mg/dl (0.2-1.3); Total Protein 6.6 g/dl (6.3-8.2); eGFR > 60.00
[2024-07-26 03:22] LABS: Uric Acid 5.5 mg/dl (3.5-8.5)
[2024-07-26] MEDS: TORADOL 30 MG IV (03:45)
[2024-07-26 04:20] LABS: Body Fluid WBC 63320 /CUMM
[2024-07-26 04:21] LABS: Body Fluid Mononuclear 7 %; Body Fluid Polymorphonuclear 93 %
[2024-07-26 04:29] LABS: Erythrocyte Sed Rate 39 mm/hour (0-20)
[2024-07-26] MEDS: VANCOCIN 540 MG IV (09:10)
--- NOTE | 2024-07-26 09:32 | HPS.HSE ---
Addendum entered and electronically signed by Chino Chin MD 07/27/24 00:01:
Attending Addendum-
I performed a history and physical exam of the patient and discussed his management with the resident. I reviewed the resident's note and agree with the documented findings and plan of care CC/HPI- Patient presents to ED with @ 2 days of severe
right knee pain. No trauma reported. Denies fevers chills. H/O Gout and recently held colchicine. Seen post knee tap. Feels improved but still in pain. Full 12 point ROS reviewed and negative except as documented Exam- vitals reviewed in EMR GEN-NAD
heart No M/R/G RRR lungs clear abd soft LE no edema Right knee swollen red warm
Plan:
# Septic Arthritis of Right Knee Joint
- tap 07/26 in ED
- WBC 67K PMN 93%
- start IVF
- cont vancomycin day 1
- await cx results from fluid
- check blood cx
- check GC
- knee x ray-Small suprapatellar joint effusion, increased in size compared to prior x-ray.
- t/c ortho c/s
# Leukocytosis
- repeat CBC in am
# Possible Gout Flare
- neg crystals but has h/o
- start colchicine
- monitor closely
#HTN
- cont amlodipine and metoprolol
- CTM
#HLD- cont atorvastatin
#BPH- cont finasteride
# s/p TAVR x 2
Code Full
Dispo Eventual DC home with HC vs SNF
ACP
Patient consented to discuss, was alone, time spent explanation of advance directives, changes in health status, patient�s health care wishes if the patient becomes unable to make health decisions, goals of care, code status, and prognosis- 16
minutes
Time spent coordinating care, review of plan of care with resident, personally reviewed previous records in EMR, med rec, labs, radiology, d/w nursing, family total time documented is exclusive of any additional time listed that was spent in advance
care planning discussion - 75 minutes
Original Note:
Family Physician
-
Family Physician: Martina Ortega
Chief Complaint
-
Acute right knee pain
History of Present Illness
Patient is an 88-year-old male with PMH of liver cirrhosis, essential hypertension, prostate cancer, gout, basal cell carcinoma, inguinal hernia, aortic stenosis s/p aortic valve replacement and TAVR, who presented to ED on 07/26/2024 with 2 days
history of right knee pain, swelling warmth, and inability to walk. Patient rated pain 10/10, but does not radiate. His pain suddenly worsened yesterday a.m. with tenderness to touch and warmth, and he also endorsed subjective fever and chills
that resolved this a.m.. His most recent gout flare was about a month ago in right second PIP joint with corticosteroid injection. He endorses liver cirrhosis which was recently diagnosed and he follows with a dope heater who stopped his
colchicine due to potential hepatic side effect. Patient reports that pain has improved with the right knee tap in the ED and receiving ketorolac. He does not take any regular pain medications at home. He denies chest pain, shortness of breath,
palpitations, abdominal pain, headaches, chills, vision changes, urinary symptoms.
Medical History
Past Medical History
Past Medical History: Reports CAD (Mid LAD 50% stenosis, mid RCA-cath 11/07/2020), Cancer (Prostate s/p IMRT, skin melanoma s/p Mohs surgery, basal cell carcinoma s/p resection, facial squamous cell carcinoma, s/p Mohs surgery), HTN,
Hypercholesterolemia and Valvular Disease
Additional Past Medical History:
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
Past Surgical History: Reports Cardiac (TAVR [facility] 02/16/2023), Orthopedic (Meniscal tear s/p arthroscopy, left shoulder tenderness to) and Urological (Prostate Ca-IMRT (2005))
Social History
Tobacco: Former Smoker (Quit 1963)
Alcohol: Former (Sober 2 years)
Drug: None
Personal:
Living: With Family
Employment: Retired
Family History
Family History: Not pertinent
Allergies / Home Medications
Allergies reflects when Allergies were last updated in [employer].
Home Medications with original date entered in [employer]
Allergy/Medication List:
Allergies
Allergy/AdvReac Type Severity Reaction Status Date / Time
Penicillins Allergy hand Verified 07/26/24 02:01
swelled,
rash
dutasteride AdvReac Unknown abdominal Verified 07/26/24 02:01
pain
tamsulosin AdvReac Unknown abdominal Verified 07/26/24 02:01
pain
Review of Systems
-
History Source: Patient
A 12 point ROS was completed and negative except as noted: Yes
Constitutional: Reports No Symptoms; Denies Fever or Chills
EENT: Reports No Symptoms
Respiratory: Reports No Symptoms
Cardiac: Reports No Symptoms; Denies Chest Pain or Palpitations
Abdomen/GI: Reports No Symptoms; Denies Abdominal Pain, Nausea, Vomiting, Diarrhea or Constipated
: Reports No Symptoms
Musculoskeletal: Reports Joint Pain (Right knee pain) and Joint Swelling (Right knee); Denies Muscle Stiffness or Edema
Skin: Reports Other (Multiple bruises)
Neurological: Reports No Symptoms; Denies Headache or Weakness
Psych: Reports No Symptoms
Physical Exam
Vital Signs
Vital Signs
Temp Pulse Resp BP Pulse Ox
99.6 F 69 16 127/63 99
07/26/24 01:53 07/26/24 08:00 07/26/24 01:53 07/26/24 07:00 07/26/24 08:00
Physical Exam
General: Well Developed, Comfortable, Conversant and Pain; No Fever or Chills
HEENT: NormoCephalic and Atraumatic
Respiratory: Clear; No Wheezes, Rales or Crackles
Cardiac: S1/S2 and Regular Rhythm; No Murmur or Rub
GI: Soft, Non Tender, Non Distended and Normal Bowel Sounds
Musculoskeletal: Clubbing, No Cyanosis, No Edema and Other (Right knee pain, erythema and warmth)
Skin: Warm, Dry and Other (Multiple skin bruises)
Neuro: Awake, Alert, Oriented and AO x 3
Psych: Calm and Intact Judgment/Insight
Laboratory Results
-
07/26/24 02:17
07/26/24 02:17
Laboratory Results
Total Bilirubin 0.9 mg/dl (0.2-1.3) 07/26/24 02:17
AST 32 U/L (17-59) 07/26/24 02:17
ALT 33 U/L (0-50) 07/26/24 02:17
Alkaline Phosphatase 88 U/L (38-126) 07/26/24 02:17
Data Reviewed
-
Diagnostic Radiology: Image Personally Visualized and interpreted, Report Reviewed by me and Discussed with Physician
Lab Data: Labs Reviewed by me and Discussed with Physician
Old Records: Reviewed
Impression/Plan
-
IMPRESSION: 88-year-old male with PMH of gout, hypertension, cirrhosis who presented to ED with acute gout flares for 2 days.
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
# Gout
#Liver cirrhosis
#Mild hyponatremia
#Hx of severe s/p TAVR
#Hyperlipidemia
#Essential hypertension
#Hx of lumbar stenosis with herniated nucleus pulposus
#Hx of prostate cancer
#Hx of BPH
#Hx of CAD
Assessment/plan:
#Presentation with right joint pain, swelling, erythema.
-Admit to MedSurg.
-Most likely septic arthritis vs acute gouty flares.
-No identifiable entry point, denies joint trauma, urine clear, Joint negative for gonococcal infection.
-COVID-negative.
-Lyme serology pending.
-Right knee x-ray 4 views with moderate degenerative changes.
-Joint fluid WBC count 63,000, no crystals.
-CRP 40.6, ESR mildly elevated.
-Colchicine total 1.8 g today, 1.2 g daily from tomorrow.
-Serum uric acid normal.
-Joint fluid culture pending.
-Continue vancomycin.
-Tylenol for mild pain, ketorolac for moderate pain.
#Leukocytosis
-Mild, inflammatory process.
-Patient is afebrile.
-Continue antibiotics.
#Mild hyponatremia
-Most likely hypovolemic hyponatremia given poor oral intake.
-IV fluid bolus.
-Monitor BMP.
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
-Suspect remote EtOH vs BURGOS.
-MELD score 3.0 is 8, patient not a candidate for transplant given his age.
-Patient reportedly declined hep B immunization, hep A immune.
-Follows with hepatology outpatient.
#Hyperlipidemia
-Continue atorvastatin
#Essential hypertension
-Continue Toprol, amlodipine.
#Hx of lumbar stenosis with herniated nucleus pulposus
#Hx of prostate cancer
#Hx of BPH
#Hx of CAD
DVT PPx: Lovenox
GI PPx: Protonix
CODE STATUS: Full code
[2024-07-26 11:47] LABS: Glucose - Point of Care 100 mg/dl (70-99)
[2024-07-26] MEDS: NSS 1000 IV (11:50)
[2024-07-26] MEDS: PROTONIX 40 MG PO (11:55)
[2024-07-26] MEDS: TYLENOL 650 MG PO (11:55)
[2024-07-26] MEDS: NORVASC PO ×2 (11:55→11:58)
[2024-07-26] MEDS: DELTASONE 40 MG PO (11:55)
[2024-07-26] MEDS: TOPROL XL 12.5 MG PO (11:55)
[2024-07-26] MEDS: LIPITOR 10 MG PO (11:56)
[2024-07-26 12:08] LABS: Urine Albumin Negative (Neg - Trace); Urine Bilirubin Negative (Negative); Urine Character Clear (Clear); Urine Color Yellow; Urine Glucose Negative (Negative); Urine Ketone 1+ (Negative); Urine Leukocyte Negative (Negative); Urine Nitrite Negative (Negative); Urine Occult Blood Negative (Negative); Urine Urobilinogen Negative (Neg - 1+)
--- NOTE | 2024-07-26 13:10 | PHA.VAN.IN ---
Assessment
- Assessment
Renal Function: Appears similar to baseline
AUC Dosing Plan
- Dosing Variables
Dosing Weight (kg): 73
Dosing CrCl (ml/min): 61
Vd coefficient (L/kg): 0.7
- Empiric Dosing
Initial / Loading Dose: 2000mg - 07/26 09:10
Maintenance Regimen: Vanc 1250mg Q24H starting 07/27 0600
Estimated AUC (mcg*h/mL): 463
Estimated Peak (mcg*h/mL): 33.4
Estimated Trough (mcg/ml): 10
Estimated Half Life (H): 12.6
- Monitoring
No levels ordered at this time: borderline renal function - may require dose adjustment
Pharmacokinetics Vancomycin I
- -
Patient Age: 88
Patient Sex: Male
Vancomycin Day #: 1
Indication: Bone And Joint
Requesting Provider: Dr. Villagomez (resident)
Pertinent Antimicrobial Allergies:
penicillins - hand swelled; rash; occurred as teenager
Height / Weight:
Height 5 ft 7 in
Actual Weight 72.9 kg
- Vital Signs / Lab Results
Temp Pulse Resp BP Pulse Ox
99.6 F 69 16 138/92 98
07/26/24 01:53 07/26/24 08:00 07/26/24 01:53 07/26/24 11:15 07/26/24 09:54
Lab Results - Hematology
07/26/24
02:17
WBC 10.9 H
Lab Results - Chemistry
07/26/24
02:17
BUN 10
Creatinine 0.8
Estimated Creat Clear 61
Albumin 4.1
Lab Results - Urine
07/26/24
11:42
Urine Nitrite (Reflex) Negative
Leukocyte Esterase Rfl Negative
Microbiology Results
07/26/24 03:49 Gram Stain - Preliminary
Joint Fluid
[2024-07-26 14:30] LABS: Glucose - Point of Care 151 mg/dl (70-99)
--- NOTE | 2024-07-26 14:30 | PTCARENOTE ---
Received patient from ED via stretcher. AAOx3, ambulated with assistance to bed. Assessed and oriented to room. No complaints of pain at present time. Call mai in close reach. Will continue to monitor.
[2024-07-26 14:57] LABS: Lyme Antibody Screen, EIA Negative (Negative)
[2024-07-26] MEDS: COLCHICINE 1.2 MG PO (16:28)
[2024-07-26 17:24] LABS: Glucose - Point of Care 128 mg/dl (70-99)
[2024-07-26] MEDS: PROSCAR 5 MG PO (17:48)
[2024-07-26] MEDS: LOVENOX 40 MG SC (17:48)
[2024-07-26] MEDS: COLCHICINE 0.6 MG PO (17:48)
[2024-07-26] MEDS: NORVASC 2.5 MG PO (20:28)
[2024-07-26 21:53] LABS: Glucose - Point of Care 144 mg/dl (70-99)
[2024-07-27 06:00] VITALS: BMI 22.4
[2024-07-27] MEDS: VANCOCIN 275 MG IV (06:27)
[2024-07-27 07:50] VITALS: BP 124/59
[2024-07-27 07:59] LABS: Glucose - Point of Care 101 mg/dl (70-99)
[2024-07-27 08:15] LABS: Hematocrit 33.1 % (39.0-52.0); Hemoglobin 11.7 g/dL (13.0-18.0); Mean Corp Hgb Conc. 35.3 g/dL (33.0-37.0); Mean Corpuscular Hgb 32.7 pg (27.0-31.0); Mean Corpuscular Volume 92.5 fL (80.0-94.0); Mean Platelet Volume 9.9 fL (7.4-10.4); Platelet Count 160 10^3/uL (130-400); Red Blood Cell Count 3.58 10^6/uL (4.70-6.10); White Blood Cell Count 9.9 10^3/uL (4.8-10.8)
[2024-07-27 08:21] LABS: INR 1.18; PT 14.9 Sec (11.4-14.6)
--- NOTE | 2024-07-27 08:42 | W.PN.HOSP.TC ---
Addendum entered and electronically signed by Chino Chin MD 07/27/24 21:16:
Attending Addendum-
Attending Addendum-I saw and evaluated the patient. I reviewed the resident�s note and agree with findings and plan as documented in the resident�s note. Sub: Seen with present. Feels greatly improved after repeat tap this am by ortho. pain
well controlled Full 12 point ROS reviewed and negative except as documented Exam- vitals reviewed in EMR GEN-NAD heart No M/R/G RRR lungs clear abd soft LE no edema Right knee less swollen, red, and warm
Plan:
# Septic Arthritis of Right Knee Joint
- tapped 07/26 in ED
- WBC 67K PMN 93%
- repeat tap 50mls bloody fluid by ortho on 07/27
- DC IVF
- cont vancomycin day #2
- await cx results from fluid
- blood cx pos x 2 sets- gpc in clusters
- repeat blood cx in am
- for I and D washout if clinically worsens
- appreciate ortho in put
# Leukocytosis
- resolved
- reeat CBC in am
# H/O Gout
- neg crystals on tap
- not in flare
- monitor closely
#HTN
- cont amlodipine and metoprolol
- CTM
#HLD- cont atorvastatin
#BPH- cont finasteride
# s/p TAVR x 2
Code Full
Dispo Eventual DC home with HC with
Time spent coordinating care, review of plan of care with resident, personally reviewed records in EMR, med rec, consults, notes, labs, radiology, d/w nursing and ortho � 59 mins
Original Note:
Today's Communication/Plan
-
Positive blood cultures
Ortho consult
Right knee aspiration/cx
D/C colchicine
Follow CBC
Assessment / Plan
Assessment / Plan
IMPRESSION: 88-year-old male with PMH of gout, hypertension, cirrhosis who presented to ED with acute gout flares for 2 days.
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
# Gout
#Liver cirrhosis
#Mild hyponatremia
#Hx of severe s/p TAVR
#Hyperlipidemia
#Essential hypertension
#Hx of lumbar stenosis with herniated nucleus pulposus
#Hx of prostate cancer
#Hx of BPH
#Hx of CAD
Assessment/plan:
# Right knee joint septic arthritis.
-Knee tap 07/26 with WBC 67K, PMN 93%, negative for crystals. -CRP 40.6, ESR mildly elevated.
-Preliminary blood cultures 07/26 with gram-positive/probable coagulase-negative- staph.
-Possible point of entry during recent knee injection.
-Ortho consult.
-Righ knee aspiration with bloody fluid 07/27 by ortho.
-Knee fluid culture.
-Pain management.
-Will consider knee washout if worsening sxs. Pt prefers to avoid procedures at this point.
-Continue vancomycin.
-No further steroid injection on right knee for at least one year, pt aware.
-Lyme serology pending.
-Right knee x-ray 4 views with moderate degenerative changes.
#Possible gouty flare
-History of gout, negative crystals on knee tap.
-D/c colchicine.
-Tylenol for mild pain, ketorolac for moderate pain.
#Leukocytosis
-Resolved.
-Inflammatory process from right knee septic arthritis.
-Patient is afebrile.
-Continue antibiotics.
#Mild hyponatremia
-Most likely hypovolemic hyponatremia given poor oral intake.
-Continue IV fluid
-Monitor BMP.
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
-Suspect remote EtOH vs BURGOS.
-MELD score 3.0 is 8, patient not a candidate for transplant given his age.
-Patient reportedly declined hep B immunization, hep A immune.
-Follows with hepatology outpatient.
#Hyperlipidemia
-Continue atorvastatin
#Essential hypertension
-Continue Toprol, amlodipine.
#Hx of lumbar stenosis with herniated nucleus pulposus
#Hx of prostate cancer
#Hx of BPH
#Hx of CAD
DVT PPx: Lovenox
GI PPx: Protonix
CODE STATUS: Full code
Anticipated Discharge: 24 - 48 hours
Subjective/Interval History
-
Date of Service: July 27, 2024
Patient seen and examined. Reports feeling better today, able to move his knee better, less swelling, less erythematous and cooler knee joint. Today he tells me that he got bilateral knee injection for his osteoarthritis prior to development of
his symptoms. Had a discussion with the patient about possible knee washout today by Ortho, and patient is amenable but has more questions about pain control and recovery. His pulmonary blood cultures positive for staph however, his WBC count
today is 10.9> 9.9 and has been afebrile. He denies chest pain, shortness of breath, abdominal pain, chills, headaches, or urinary symptoms.
Objective Data
-
Labs:
Laboratory Results
07/27/24
07:40
WBC 9.9
Hgb 11.7 L
Hct 33.1 L
Plt Count 160
PT 14.9 H
INR 1.18
Sodium Pending
Potassium Pending
Chloride Pending
Carbon Dioxide Pending
BUN Pending
Creatinine Pending
Glucose Pending
Calcium Pending
Vital Signs:
Vital Signs
Temp Pulse Resp BP Pulse Ox
98.9 F 67 18 124/59 99
07/27/24 07:50 07/27/24 07:50 07/27/24 07:50 07/27/24 07:50 07/27/24 07:50
I&O
07/26/24 07/27/24 07/28/24
06:59 06:59 06:59
Intake Total 1240 / 1240
Output Total 500 / 500
Balance 740 / 740
Review of Systems
-
History Source: Patient
All other systems: Not reviewed unless documented
Constitutional: Reports No Symptoms; Denies Fever, Fatigue or Chills
Respiratory: Reports No Symptoms; Denies Cough or Wheezing
Cardiac: Reports No Symptoms; Denies Chest Pain
Abdomen/GI: Reports No Symptoms; Denies Abdominal Pain
Genitourinary: Reports No Symptoms
Musculoskeletal: Reports Joint Pain (Improved), Joint Swelling (Improved), Muscle Stiffness (Improved) and Arthralgias; Denies Muscle Weakness
Neuro: Reports No Symptoms; Denies Headache or Weakness
Physical Exam
-
General: Well Developed and No Apparent Distress
HEENT: Normocephalic, Atraumatic and Moist Mucous Membranes
Respiratory: Clear to Auscultation
Cardiac: Regular Rhythm and S1/S2; Negative Murmur, Rub or Gallop
GI: Soft, Nontender, Nondistended and Normal Bowel Sounds; Negative Organomegaly
Rectal: Deferred by Provider
Musculoskeletal: No Clubbing, No Cyanosis, No Edema and Other (Mild right knee swelling, erythema, warmth, limited ROM.)
Skin: Warm; Negative Rash
Neuro: Awake, Alert, Oriented, AO x 3 and Nonfocal/Grossly Intact
Psych: Calm and Intact Judgement/Insight
Data Reviewed
-
Diagnostic Radiology: Image personally visualized and interpreted, Report Reviewed by me and Discussed with Physician
Labs: Labs Reviewed by me and Discussed with Physician
Old Records: Reviewed
[2024-07-27] MEDS: NORVASC 2.5 MG PO ×2 (08:45→20:29)
[2024-07-27] MEDS: VITAMIN C 500 MG PO (08:45)
[2024-07-27] MEDS: PROTONIX 40 MG PO (08:45)
[2024-07-27] MEDS: LOW STRENGTH ASPIRIN 81 MG PO (08:45)
[2024-07-27] MEDS: VITAMIN B-12 1000 MCG PO (08:45)
[2024-07-27] MEDS: VITAMIN D3 (cholecalciferol) 125 MCG PO (08:45)
[2024-07-27] MEDS: COLCHICINE 0.6 MG PO (08:45)
[2024-07-27] MEDS: MAG-TAB SR 84 MG PO (08:45)
[2024-07-27] MEDS: LIPITOR 10 MG PO (08:45)
[2024-07-27] MEDS: TOPROL XL 12.5 MG PO (08:45)
[2024-07-27 09:17] LABS: Blood Urea Nitrogen 13 mg/dl (9-20); Calcium 9.7 mg/dl (8.4-10.2); Carbon Dioxide 25 mmol/L (22-30); Chloride 101 mmol/L (98-107); Estimated Creatinine Clearance 60 ml/min; Glucose 82 mg/dl (70-99); Magnesium 1.9 mg/dl (1.6-2.3); Potassium 3.8 mmol/L (3.5-5.1); Sodium 134 mmol/L (135-145); eGFR > 60.00
--- NOTE | 2024-07-27 10:56 | PHA.VAN.FU ---
Vancomycin Assessment / Plan
- Assessment
Renal Function: Stable
WBC's are: WNL
In the past 24 hrs, patient has been: Afebrile
- Dosing Plan
Continue: Vanc 1250mg Q24H
- Monitoring Plan
No level(s) ordered at this time: consider levels in next few days
- Follow Up
Pharmacy will continue to follow.
Vancomycin Follow UP
- -
Patient Age: 88
Patient Sex: Male
Vancomycin Day #: 2
Indication: Bone And Joint
Requesting Provider: Dr. Villagomez (resident)
Pertinent Antimicrobial Allergies:
penicillins - hand swelled; rash; occurred as teenager
Height / Weight:
Height 5 ft 7 in
Actual Weight 64.949 kg
- Vital Signs / Lab Results
Temp Pulse Resp BP Pulse Ox
98.9 F 67 18 124/59 99
07/27/24 07:50 07/27/24 07:50 07/27/24 07:50 07/27/24 07:50 07/27/24 07:50
Lab Results - Hematology
07/26/24 07/27/24
02:17 07:40
WBC 10.9 H 9.9
Lab Results - Chemistry
07/26/24 07/27/24
02:17 07:40
BUN 10 13
Creatinine 0.8 0.8
Estimated Creat Clear 61 60
Albumin 4.1
Lab Results - Urine
07/26/24
11:42
Urine Nitrite (Reflex) Negative
Leukocyte Esterase Rfl Negative
Microbiology Results
07/26/24 08:39 Blood Culture - Preliminary
Blood/Venous Positive culture in progress
Gram Stain - Preliminary
07/26/24 03:49 Body Fluid Culture - Preliminary
Joint Fluid No Growth After 18-24 Hours
Gram Stain - Preliminary
07/26/24 08:39 Blood Culture - Preliminary
Blood/Venous Positive culture in progress
Gram Stain - Preliminary
--- NOTE | 2024-07-27 11:12 | CM ---
Pt seen at bedside. Pt lives w/ spouse in a 2STH w/ 2 steps to enter.
Prev. independent w/ walker and cane
Denies SNF hx
Denies PT/VN hx
Address, insurance and point of contact verified
PCP: Dr. Martina Ortega
Pharmacy: [facility]
Will be getting knee surgery per pt
Watch for PT/OT recs.
Plan: Rehab anticipated at d/c
--- NOTE | 2024-07-27 11:56 | W.PN.UPDATE ---
Update Note
Progress Note Update
Full orthopedic consult dictated:
Dx: Septic arthritis right knee
Plan: Patient has been experiencing painful right knee which was aspirated in the emergency room yesterday. Fluid analysis revealed WBC was 63,000 without crystals, ESR 39, CRP 40.2 and WBC 10.9 with low-grade temperature. He has had blood
cultures x 2 which have shown gram-positive cocci. He was started on vancomycin. Today his right knee seems to be doing significantly better. Exam showed trace erythema, moderate effusion without significant warmth and no pain. Passive motion 0
to 90 degrees without pain. Right knee was sterilely aspirated for 50 mL cloudy blood-tinged joint fluid. Passive motion after aspiration 0 to 115 degrees and no pain. Since he does not appear septic we will hold off on right knee I&D for now.
Observe for now with serial aspirations as indicated. Consider right knee I&D if he becomes septic. Continue antibiotics per medicine. Await cultures for definitive antibiotic recommendations. Discussed with patient's Gris Darlnig. Also
discussed with Hospitalists Tristan Jose and Giuseppe. Reevaluate in the morning.
[2024-07-27 12:09] LABS: Glucose - Point of Care 76 mg/dl (70-99)
[2024-07-27 13:00] LABS: Glycohemoglobin (HgbA1c) 5.6 % (4.0-5.6)
[2024-07-27 14:14] VITALS: BP 139/71; PULSE 72; O2SAT 98
[2024-07-27 15:42] VITALS: BP 125/62
[2024-07-27] MEDS: LOVENOX 40 MG SC (17:05)
[2024-07-27] MEDS: PROSCAR 5 MG PO (17:05)
[2024-07-27 23:49] VITALS: BP 120/61
[2024-07-28] MEDS: VANCOCIN 275 MG IV (05:03)
[2024-07-28 07:55] VITALS: BP 144/72
--- NOTE | 2024-07-28 09:04 | W.PN.HOSP.TC ---
Today's Communication/Plan
-
Continue IV antibiotics. Appreciate Ortho input. ID consult.
Assessment / Plan
Assessment / Plan
Physical exam:
General: Well Developed, Well Nourished and No Apparent Distress
HEENT: Normocephalic, Atraumatic and Moist Mucous Membranes
Respiratory: Clear to Auscultation; Negative Wheezes, Rales or Rhonchi
Cardiac: Regular Rhythm and S1/S2
GI: Soft, Nontender and Nondistended
Musculoskeletal: Right knee pain and effusion but no significant erythema or warmth or ecchymosis. Decreased range of motion of the right knee but much better than before. No Clubbing, No Cyanosis and No Edema
Neuro: Awake, Alert and Oriented
Psych: Calm
A/P:
IMPRESSION: 88-year-old male with PMH of gout, hypertension, cirrhosis who presented to ED with acute gout flares for 2 days.
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
# Gout
#Liver cirrhosis
#Mild hyponatremia
#Hx of severe s/p TAVR
#Hyperlipidemia
#Essential hypertension
#Hx of lumbar stenosis with herniated nucleus pulposus
#Hx of prostate cancer
#Hx of BPH
#Hx of CAD
Assessment/plan:
# Right knee joint septic arthritis versus gout.
-Knee tap 07/26 with WBC 67K, PMN 93%, negative for crystals. -CRP 40.6, ESR mildly elevated.
-Preliminary blood cultures 07/26 with coagulase-negative- staph.
-Possible point of entry during recent knee injection.
-Ortho consult.
-Righ knee aspiration with bloody fluid 07/27 by ortho.
-Knee fluid culture.
-Pain management.
-Will consider knee washout if worsening sxs. Pt prefers to avoid procedures at this point especially if it is not indicated.
-Continue vancomycin.
-No further steroid injection on right knee for at least one year, pt aware.
-Lyme serology pending.
-Right knee x-ray 4 views with moderate degenerative changes.
-Status post repeat knee aspiration by orthopedic today on 07/28
Staph aureus bacteremia--> real bacteremia versus contaminant:
2 set of blood cultures positive but unclear if same site or different (and no time difference).
History of TAVR x 2--> might need further evaluation such as echocardiogram but will defer to ID after evaluation.
Continue current IV antibiotics, vancomycin
Follow-up blood cultures identification
ID consult today on 07/28
#Possible gouty flare
-History of gout, negative crystals on knee tap.
-D/c colchicine.
-Tylenol for mild pain, ketorolac for moderate pain.
#Leukocytosis
-Resolved.
-Inflammatory process from right knee septic arthritis.
-Patient is afebrile.
-Continue antibiotics.
#Mild hyponatremia
-Most likely hypovolemic hyponatremia given poor oral intake.
-Continue IV fluid
-Monitor BMP.
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
-Suspect remote EtOH vs BURGOS.
-MELD score 3.0 is 8, patient not a candidate for transplant given his age.
-Patient reportedly declined hep B immunization, hep A immune.
-Follows with hepatology outpatient.
#Hyperlipidemia
-Continue atorvastatin
#Essential hypertension
-Continue Toprol, amlodipine.
#Hx of lumbar stenosis with herniated nucleus pulposus
#Hx of prostate cancer
#Hx of BPH
#Hx of CAD
DVT PPx: Lovenox
GI PPx: Protonix
CODE STATUS: Full code
Total time spent on today's encounter was 52 minutes which included time spent in counseling the patient/family regarding diagnosis and treatment plan as listed above, goals of care, and symptom management. Case was discussed with nursing staff,
specialists, and care coordinators/case management. All labs and imaging personally reviewed by me. Remainder the time spent in detailed review of previous records, lab data, imaging, and other medical provider documentation.
Anticipated Discharge: > 48 hours
Subjective/Interval History
-
Date of Service: July 28, 2024
Patient feels his right knee is improved. He is able to flex and extend right knee much better. Afebrile
Objective Data
-
Vital Signs:
Vital Signs
Temp Pulse Resp BP Pulse Ox
97.6 F 84 16 144/72 97
07/28/24 07:55 07/28/24 07:55 07/28/24 07:55 07/28/24 07:55 07/28/24 07:55
I&O
07/27/24 07/28/24 07/29/24
06:59 06:59 06:59
Intake Total 1240 / 1240 1235 / 1235
Output Total 500 / 500
Balance 740 / 740 1235 / 1235
[2024-07-28] MEDS: MAG-TAB SR 84 MG PO (10:06)
[2024-07-28] MEDS: LIPITOR 10 MG PO (10:06)
[2024-07-28] MEDS: PROTONIX 40 MG PO (10:06)
[2024-07-28] MEDS: NORVASC 2.5 MG PO ×2 (10:06→20:46)
[2024-07-28] MEDS: FLUSH (NSS) 1 FLUSH IV (10:07)
[2024-07-28] MEDS: TOPROL XL 12.5 MG PO (10:07)
[2024-07-28] MEDS: VITAMIN D3 (cholecalciferol) 125 MCG PO (10:07)
[2024-07-28] MEDS: VITAMIN C 500 MG PO (10:07)
[2024-07-28] MEDS: VITAMIN B-12 1000 MCG PO (10:07)
--- NOTE | 2024-07-28 10:18 | W.PN.UPDATE ---
Update Note
Progress Note Update
Mr. Darling is resting comfortably in his chair this morning. He reports his right knee continues to improve with time. He notes swelling about the knee this morning, but states it is overall improved. He denies any pain in the knee at presents,
and denies difficulty ambulating. He is otherwise feeling well, and denies any constitutional symptoms.
Directed exam of the right lower extremity reveals effusion about the right knee. No significant erythema, ecchymosis or lesions. ROM 0-110 without pain. Calf soft and nontender. Neurovascularly intact distally.
Culture from knee aspiration in ED reveals no growth up to this point. Blood culture x2 reveals coagulase negative staphylococcus.
After sterile preparation with Betadine, the right knee was aspirated at the bedside this morning. 30 cc of slightly cloudy, bloody fluid was aspirated. There was no gross purulence. Patient tolerated the procedure well.
Overall, patient is improving clinically on antibiotics. Would recommend continued monitoring for the time being. Will continue to follow cultures. Continue antibiotics per medicine. Patient may be WBAT and may perform ROM to tolerance. Will
continue to follow along.
--- NOTE | 2024-07-28 11:58 | PHA.VAN.FU ---
Addendum entered and electronically signed by Flip Kaminski [facility] 07/28/24 13:40:
scr 0.8 today. Stable from yesterday.
Original Note:
Vancomycin Assessment / Plan
- Assessment
Renal Function: No New Labs Today (Ordered urgent Scr for today)
In the past 24 hrs, patient has been: Afebrile
- Dosing Plan
Continue: Vancomycin 1250mg IV daily
- Monitoring Plan
No level(s) ordered at this time: Will order levels according to vancomycin dosing protocol
- Follow Up
Pharmacy will continue to follow.
Vancomycin Follow UP
- -
Patient Age: 88
Patient Sex: Male
Vancomycin Day #: 3
Indication: Bone And Joint
Requesting Provider: Dr. Villagomez (resident)
Pertinent Antimicrobial Allergies:
penicillins - hand swelled; rash; occurred as teenager
Height / Weight:
Height 5 ft 7 in
Actual Weight 64.949 kg
Pertinent Past Medical History: Right knee arthroscopy in past
- Vital Signs / Lab Results
Temp Pulse Resp BP Pulse Ox
97.6 F 84 16 144/72 97
07/28/24 07:55 07/28/24 10:06 07/28/24 07:55 07/28/24 10:06 07/28/24 07:55
Lab Results - Hematology
07/26/24 07/27/24
02:17 07:40
WBC 10.9 H 9.9
Lab Results - Chemistry
07/26/24 07/27/24
02:17 07:40
BUN 10 13
Creatinine 0.8 0.8
Estimated Creat Clear 61 60
Albumin 4.1
Microbiology Results
07/26/24 08:39 Blood Culture - Preliminary
Blood/Venous Coagulase neg. staphylococcus
Gram Stain - Preliminary
07/26/24 08:39 Blood Culture - Preliminary
Blood/Venous Coagulase neg. staphylococcus
Gram Stain - Preliminary
07/27/24 13:40 MRSA Screen - Final
Nose No Methicillin Resistant Staphylococcus aureus isolated.
07/26/24 03:49 Body Fluid Culture - Preliminary
Joint Fluid No Growth After 18-24 Hours
Gram Stain - Preliminary
[2024-07-28 12:43] LABS: Estimated Creatinine Clearance 60 ml/min
[2024-07-28 13:00] VITALS: BMI 22.5
--- NOTE | 2024-07-28 14:27 | CON.ID ---
Consultation
-
Date/Time Consultation Requested: 07/28/2024 0918
Date/Time Consultation Performed: 07/28/2024 1354
Requesting Provider: Dr. Koch
Performing Provider: Dr. Chandler
Reason for Consultation: Septic arthritis
Chief Complaint / Past History
History of Present Illness
Rolando Darling is an 88-year-old man with a significant past medical history of gout and valvular insufficiency (s/p TAVR 2022) being evaluated at the request of Dr. Mott in regards to suspected right knee septic arthritis. History is obtained
from chart review, along with patient interview.
The patient reports that he was in his usual state of health until approximately 6 weeks ago when he was in to see one of his physicians and was taken off his longstanding course of allopurinol secondary to reported liver issues. The patient notes
that he developed left toe swelling approximately 1 week later but this resolved. Patient also reports that he receives steroid injections to his knees, with the most recent injection approximately July 10. Approximately 3 days ago he developed
some throbbing of his right knee which progressed to rosalinda pain, and the patient found it difficult to ambulate, finally calling EMS to bring him to the hospital for further evaluation. He arrived here on parcel wrapper of 07/26. At that time the
knee was tapped and fluid sent for analysis, revealing a significant amount of white cells. He was started on empiric antibiotics (vancomycin. Blood cultures obtained at that time have since turned positive for coag negative staph, and Infectious
Diseases asked to comment upon further antimicrobial management.
The patient denies any prior fevers or chills. He notes that the knee is feeling improved since it has been aspirated.
Past History
Additional Past Medical History:
Dyslipidemia
CAD
Prostate cancer (s/p IMRT)
HTN
Valvular disease
Diverticulosis
Additional Past Surgical History:
Inguinal hernia repair
Cataract surgery
TAVR (02/16/2023; [facility])
Arthroscopic surgery
Prostate surgery
Allergy History:
Penicillins Allergy (Verified 07/26/24 02:01)
hand swelled, rash
dutasteride Adverse Reaction (Unknown, Verified 07/26/24 02:01)
abdominal pain
tamsulosin Adverse Reaction (Unknown, Verified 07/26/24 02:01)
abdominal pain
Medications Reviewed: Yes
Current Antibiotics:
Vancomycin
Social History
Tobacco: Former Smoker
Alcohol: Former
Drug: None
Personal:
Living: With Family
Employment: Retired
Family History
Family History: Not Pertinent
Review of Systems
Vital Signs
Temp Pulse Resp BP Pulse Ox
97.6 F 84 16 144/72 97
07/28/24 07:55 07/28/24 10:06 07/28/24 07:55 07/28/24 10:06 07/28/24 09:00
Physical Exam
Physical Exam
Constitutional: No Acute Distress, Well Developed, Comfortable and Non-toxic
Head: Normocephalic
Eyes: Pupils Equal, Pupils Round, No Conjunctival Hemorrhage and Sclera Anicteric
Oral: No Thrush and No Ulcers
Cardiovascular: Regular Rate and S1/S2; Negative S3/S4
Pulmonary: Clear; Negative Wheezes, Rales or Rhonchi
Gastrointestinal: Soft, Non Tender, Non Distended, Normal Bowel Sounds, No Rebound and No Guarding
Extremities: Negative Cyanosis
Musculoskeletal: Joint Swelling (right knee)
Skin: Warm and Dry; Negative Rash or Jaundice
Neurological: Awake and Alert
Psychological: Calm
Lab / Diagnostic Study Results
07/27/24 07:40
07/28/24 12:16
Abs Immat Gran (auto) 0.1 10^3/uL (0-0.05) H 07/26/24 02:17
Absolute Neuts (auto) 8.6 10^3/uL (1.4-6.5) H 07/26/24 02:17
Absolute Lymphs (auto) 0.8 10^3/uL (1.2-3.4) L 07/26/24 02:17
Absolute Monos (auto) 1.5 10^3/uL (0.1-0.6) H 07/26/24 02:17
Absolute Basos (auto) 0.0 10^3/uL (0-0.2) 07/26/24 02:17
Immature Gran % 0.7 % (0-0.5) H 07/26/24 02:17
Neutrophils % 78.5 % (42.2-75.2) H 07/26/24 02:17
Lymphocytes % 6.9 % (20.5-51.1) L 07/26/24 02:17
Monocytes % 13.4 % (1.7-9.3) H 07/26/24 02:17
Eosinophils % 0.2 % (0-6) 07/26/24 02:17
Basophils % 0.3 % (0-2) 07/26/24 02:17
ESR 39 mm/hour (0-20) H 07/26/24 02:17
PT 14.9 Sec (11.4-14.6) H 07/27/24 07:40
INR 1.18 07/27/24 07:40
C-Reactive Protein 40.60 mg/L (0.0-10.00) H 07/26/24 02:17
Microbiology Results
Micro:
07/26/24 03:49 Body Fluid Culture - Preliminary
Joint Fluid No Growth After 48 Hours
Gram Stain - Preliminary
07/26/24 08:39 Blood Culture - Preliminary
Blood/Venous Coagulase neg. staphylococcus
Gram Stain - Preliminary
07/26/24 08:39 Blood Culture - Preliminary
Blood/Venous Coagulase neg. staphylococcus
Gram Stain - Preliminary
07/27/24 13:40 MRSA Screen - Final
Nose No Methicillin Resistant Staphylococcus aureus isolated.
Imaging:
07/26/2024 X-ray right knee: No displaced fracture or dislocation. Small suprapatellar joint effusion. Mild joint space narrowing. Chondrocalcinosis is seen within the medial and lateral compartments. Please see full dictation for additional
detail.
Assessment / Plan
Bacteremia with coag negative staph.
Right knee effusion
-Acute septic arthritis vs gout
Elevated ESR
Elevated CRP
Hx TAVR (x2)
Dyslipidemia
CAD
Prostate cancer (s/p IMRT)
HTN
Valvular disease
Diverticulosis
Recommendations:
Continue with empiric Vanco for now. Follow levels closely to avoid renal toxicity.
Await further blood culture results (speciation & sensitivities)
Monitor white count and temperature curve.
Follow for clinical improvement in the knee
Further recommendations as additional data is returned.
[2024-07-28 15:00] VITALS: BP 147/72
[2024-07-28] MEDS: LOVENOX 40 MG SC (18:24)
[2024-07-28] MEDS: PROSCAR 5 MG PO (18:25)
[2024-07-28 23:50] VITALS: BP 148/74
[2024-07-29] MEDS: VANCOCIN 275 MG IV (05:16)
[2024-07-29 06:00] VITALS: BMI 22.0
[2024-07-29 07:55] VITALS: BP 149/83
[2024-07-29 08:04] LABS: % Basophils 0.8 % (0-2); % Eosinophils 1.7 % (0-6); % Immature Granulocytes 0.9 % (0-0.5); % Lymphocytes 16.8 % (20.5-51.1); % Monocytes 9.5 % (1.7-9.3); % Neutrophils 70.3 % (42.2-75.2); Absolute Basophils 0.1 10^3/uL (0-0.2); Absolute Eosinophils 0.1 10^3/uL (0-0.7); Absolute Immature Granulocytes 0.1 10^3/uL (0-0.05); Absolute Lymphocytes 1.3 10^3/uL (1.2-3.4); Absolute Monocytes 0.7 10^3/uL (0.1-0.6); Absolute Neutrophils 5.5 10^3/uL (1.4-6.5); Hematocrit 37.5 % (39.0-52.0); Hemoglobin 13.5 g/dL (13.0-18.0); Mean Corpuscular Hgb 33.8 pg (27.0-31.0); Mean Platelet Volume 9.5 fL (7.4-10.4); Nucleated Red Blood Cells % 0 % (-); Platelet Count 194 10^3/uL (130-400); Red Blood Cell Count 3.99 10^6/uL (4.70-6.10); Red Cell Dist. Width 13.6 % (11.5-14.5); White Blood Cell Count 7.8 10^3/uL (4.8-10.8)
[2024-07-29 08:08] LABS: Blood Urea Nitrogen 13 mg/dl (9-20); Calcium 9.5 mg/dl (8.4-10.2); Carbon Dioxide 26 mmol/L (22-30); Chloride 100 mmol/L (98-107); Estimated Creatinine Clearance 59 ml/min; Glucose 79 mg/dl (70-99); Potassium 3.7 mmol/L (3.5-5.1); Sodium 137 mmol/L (135-145); eGFR > 60.00
[2024-07-29] MEDS: NORVASC 2.5 MG PO ×2 (08:12→20:52)
[2024-07-29] MEDS: LIPITOR 10 MG PO (08:12)
[2024-07-29] MEDS: LOW STRENGTH ASPIRIN 81 MG PO (08:12)
[2024-07-29] MEDS: MAG-TAB SR 84 MG PO (08:12)
[2024-07-29] MEDS: PROTONIX 40 MG PO (08:13)
[2024-07-29] MEDS: VITAMIN D3 (cholecalciferol) 125 MCG PO (08:13)
[2024-07-29] MEDS: VITAMIN B-12 1000 MCG PO (08:13)
[2024-07-29] MEDS: VITAMIN C 500 MG PO (08:13)
[2024-07-29] MEDS: TOPROL XL 12.5 MG PO (08:13)
[2024-07-29] MEDS: FLUSH (NSS) 1 FLUSH IV (08:14)
--- NOTE | 2024-07-29 09:24 | W.PN.HOSP.TC ---
Today's Communication/Plan
-
Continue antibiotics.
Assessment / Plan
Assessment / Plan
Physical exam:
General: Well Developed, Well Nourished and No Apparent Distress
HEENT: Normocephalic, Atraumatic and Moist Mucous Membranes
Respiratory: Clear to Auscultation; Negative Wheezes, Rales or Rhonchi
Cardiac: Regular Rhythm and S1/S2
GI: Soft, Nontender and Nondistended
Musculoskeletal: Right knee pain and effusion but no significant erythema or warmth or ecchymosis. Decreased range of motion of the right knee but much better than before. No Clubbing, No Cyanosis and No Edema
Neuro: Awake, Alert and Oriented
Psych: Calm
A/P:
IMPRESSION: 88-year-old male with PMH of gout, hypertension, cirrhosis who presented to ED with acute gout flares for 2 days.
Conditions ANTHROPOMETRIST:
# Gout
#Liver cirrhosis
#Mild hyponatremia
#Hx of severe s/p TAVR
#Hyperlipidemia
#Essential hypertension
#Hx of lumbar stenosis with herniated nucleus pulposus
#Hx of prostate cancer
#Hx of BPH
#Hx of CAD
Assessment/plan:
# Right knee joint septic arthritis versus gout.
-Knee tap 07/26 with WBC 67K, PMN 93%, negative for crystals. -CRP 40.6, ESR mildly elevated.
-Preliminary blood cultures 07/26 with coagulase-negative- staph.
-Possible point of entry during recent knee injection.
-Ortho consult.
-Righ knee aspiration with bloody fluid 07/27 by ortho.
-Knee fluid culture.
-Pain management.
-Will consider knee washout if worsening sxs. Pt prefers to avoid procedures at this point especially if it is not indicated.
-Continue vancomycin.
-No further steroid injection on right knee for at least one year, pt aware.
-Lyme serology pending.
-Right knee x-ray 4 views with moderate degenerative changes.
-Status post repeat knee aspiration by orthopedic today on 07/28
Staph aureus bacteremia--> real bacteremia versus contaminant:
2 set of blood cultures positive but unclear if same site or different (and no time difference).
History of TAVR x 2--> might need further evaluation such as echocardiogram but will defer to ID after evaluation.
Continue current IV antibiotics, vancomycin
Follow-up blood cultures identification
ID consult on 07/28
Check BMP tomorrow-should be checking renal function while on IV vancomycin.
#Possible gouty flare
-History of gout, negative crystals on knee tap.
-D/c colchicine.
-Tylenol for mild pain, ketorolac for moderate pain.
#Leukocytosis
-Resolved.
-Inflammatory process from right knee septic arthritis.
-Patient is afebrile.
-Continue antibiotics.
#Mild hyponatremia
-Most likely hypovolemic hyponatremia given poor oral intake.
-Continue IV fluid
-Monitor BMP.
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
-Suspect remote EtOH vs BURGOS.
-MELD score 3.0 is 8, patient not a candidate for transplant given his age.
-Patient reportedly declined hep B immunization, hep A immune.
-Follows with hepatology outpatient.
#Hyperlipidemia
-Continue atorvastatin
#Essential hypertension
-Continue Toprol, amlodipine.
#Hx of lumbar stenosis with herniated nucleus pulposus
#Hx of prostate cancer
#Hx of BPH
#Hx of CAD
DVT PPx: Lovenox
GI PPx: Protonix
CODE STATUS: Full code
Anticipated Discharge: 24 - 48 hours
Subjective/Interval History
-
Date of Service: July 29, 2024
Patient continues to do well. Right knee able to move without any problems. Afebrile.
Objective Data
-
Labs:
Laboratory Results
07/29/24
07:00
WBC 7.8
Hgb 13.5
Hct 37.5 L
Plt Count 194 D
Sodium 137
Potassium 3.7
Chloride 100
Carbon Dioxide 26
BUN 13
Creatinine 0.8
Glucose 79
Calcium 9.5
Vital Signs:
Vital Signs
Temp Pulse Resp BP Pulse Ox
97.9 F 93 16 149/83 98
07/29/24 07:55 07/29/24 07:55 07/29/24 07:55 07/29/24 07:55 07/29/24 07:55
I&O
07/28/24 07/29/24 07/30/24
06:59 06:59 06:59
Intake Total 1235 / 1235 1715 / 1715
Balance 1235 / 1235 1715 / 1715
--- NOTE | 2024-07-29 11:14 | W.PN.UPDATE ---
Update Note
Progress Note Update
Mr. Darling is resting comfortably in his chair this morning. He reports his right knee continues to improve with time. He reports very little swelling since out visit yesterday. He denies any pain in the knee at presents, and denies difficulty
ambulating. He is otherwise feeling well, and denies any constitutional symptoms.
Directed exam of the right lower extremity reveals very little effusion about the right knee. No significant erythema, ecchymosis or lesions. ROM 0-120 without pain. Calf soft and nontender. Neurovascularly intact distally.
Culture from knee aspiration in ED reveals no growth up to this point. Blood culture x2 reveals coagulase negative staphylococcus.
Mr. Darling continues to improve clinically. He has very little swelling about the knee today, and I do not feel I would be able to get any additional fluid with aspiration today. Will continue to follow cultures. Continue antibiotics per
medicine. Patient may be WBAT and may perform ROM to tolerance. Will continue to follow along.
--- NOTE | 2024-07-29 12:05 | PHA.VAN.FU ---
Vancomycin Assessment / Plan
- Assessment
Renal Function: Stable (0.8>0.8)
WBC's are: Trending Down (9.8>7.8)
In the past 24 hrs, patient has been: Afebrile
- Dosing Plan
Continue: Vancomycin 1250mg IV Q24hr
- Monitoring Plan
Peak Level: Ordered for 07/30/24 at 09:00
Trough Level: Ordered for 07/31/24 at 05:30
- Follow Up
Pharmacy will continue to follow.
Vancomycin Follow UP
- -
Patient Age: 88
Patient Sex: Male
Vancomycin Day #: 4
Indication: Bone And Joint
Requesting Provider: Dr. Villagomez (resident)
Pertinent Antimicrobial Allergies:
penicillins - hand swelled; rash; occurred as teenager
Height / Weight:
Height 5 ft 7 in
Actual Weight 63.616 kg
Pertinent Past Medical History: Right knee arthroscopy in past
- Vital Signs / Lab Results
Temp Pulse Resp BP Pulse Ox
97.9 F 93 16 149/83 98
07/29/24 07:55 07/29/24 07:55 07/29/24 07:55 07/29/24 07:55 07/29/24 07:55
Lab Results - Hematology
07/27/24 07/29/24
07:40 07:00
WBC 9.9 7.8
Lab Results - Chemistry
07/27/24 07/28/24 07/29/24
07:40 12:16 07:00
BUN 13 13
Creatinine 0.8 0.8 0.8
Estimated Creat Clear 60 60 59
Microbiology Results
07/26/24 03:49 Body Fluid Culture - Preliminary
Joint Fluid Coagulase neg. staphylococcus
Gram Stain - Preliminary
07/26/24 08:39 Blood Culture - Preliminary
Blood/Venous Coagulase neg. staphylococcus
Gram Stain - Preliminary
07/26/24 08:39 Blood Culture - Preliminary
Blood/Venous Coagulase neg. staphylococcus
Gram Stain - Preliminary
07/27/24 13:40 MRSA Screen - Final
Nose No Methicillin Resistant Staphylococcus aureus isolated.
--- NOTE | 2024-07-29 12:07 | PTCARENOTE ---
Made Nikki HOWARD aware of pt's joint fluid coming back as presumptive coagulase negative staph, isolated from enrichment broth only. Nikki indicated that she will make Dr. Pat aware as well. No change in orders.
--- NOTE | 2024-07-29 12:41 | W.PN.ID1 ---
Date of Service
Date of Service: July 29, 2024
Today's Communication
Continue antibiotics.
Assessment / Plan
Bacteremia with coag negative staph.
Right knee effusion
Suspected septic arthritis right knee
-Patient reports steroid injection around 07/11/24
Elevated ESR
Elevated CRP
Hx TAVR (x2)
Dyslipidemia
CAD
Prostate cancer (s/p IMRT)
HTN
Valvular disease
Diverticulosis
Recommendations:
Continue with empiric Vanco for now. Follow levels closely to avoid renal toxicity.
Await further blood culture results (speciation & sensitivities)
Monitor white count and temperature curve.
Follow for clinical improvement in the knee
Further recommendations as additional data is returned.
����������������������������������������������������������
Chief Complaint
-: Other (Right knee septic arthritis)
Subjective / Review of Systems
Review of Systems: No Fever and No Chills
Vital Signs / Physical Exam
Vital Signs
Vital Signs
Temp Pulse Resp BP Pulse Ox
97.9 F 93 16 149/83 98
07/29/24 07:55 07/29/24 07:55 07/29/24 07:55 07/29/24 07:55 07/29/24 07:55
Physical Exam
Constitutional: No Acute Distress, Well Developed and Non-toxic
Eyes: Sclera Anicteric
Cardiovascular: S1/S2; Negative S3/S4
Pulmonary: Non Labored
Gastrointestinal: Soft and Non Tender
Extremities: Negative Edema, Cyanosis or Erythema
Neurological: Awake and Alert
Psychological: Calm
Objective Data
Lab Data
Lab Results
07/29/24 07:00
07/29/24 07:00
ESR 39 mm/hour (0-20) H 07/26/24 02:17
PT 14.9 Sec (11.4-14.6) H 07/27/24 07:40
INR 1.18 07/27/24 07:40
Estimated Creat Clear 59 ml/min 07/29/24 07:00
Total Bilirubin 0.9 mg/dl (0.2-1.3) 07/26/24 02:17
AST 32 U/L (17-59) 07/26/24 02:17
ALT 33 U/L (0-50) 07/26/24 02:17
Alkaline Phosphatase 88 U/L (38-126) 07/26/24 02:17
C-Reactive Protein 40.60 mg/L (0.0-10.00) H 07/26/24 02:17
Most recent labs reviewed.
Micro Results:
07/26/24 03:49 Body Fluid Culture - Preliminary
Joint Fluid Coagulase neg. staphylococcus
Gram Stain - Preliminary
07/26/24 08:39 Blood Culture - Preliminary
Blood/Venous Coagulase neg. staphylococcus
Gram Stain - Preliminary
07/29/24 07:00 Blood Culture - Pending
Blood/Venous
07/26/24 08:39 Blood Culture - Preliminary
Blood/Venous Coagulase neg. staphylococcus
Gram Stain - Preliminary
07/27/24 13:40 MRSA Screen - Final
Nose No Methicillin Resistant Staphylococcus aureus isolated.
Imaging:
07/26/2024 X-ray right knee: No displaced fracture or dislocation. Small suprapatellar joint effusion. Mild joint space narrowing. Chondrocalcinosis is seen within the medial and lateral compartments. Please see full dictation for additional
detail.
[2024-07-29 15:53] VITALS: BP 133/74
[2024-07-29] MEDS: LOVENOX 40 MG SC (18:39)
[2024-07-29] MEDS: PROSCAR 5 MG PO (18:40)
[2024-07-29 23:48] VITALS: BP 139/74
[2024-07-30] MEDS: VANCOCIN 275 MG IV (05:25)
[2024-07-30 06:00] VITALS: BMI 21.3
[2024-07-30 08:05] VITALS: BP 136/70
[2024-07-30 08:41] LABS: Hematocrit 37.5 % (39.0-52.0); Hemoglobin 13.3 g/dL (13.0-18.0); Mean Corp Hgb Conc. 35.5 g/dL (33.0-37.0); Mean Corpuscular Hgb 33.7 pg (27.0-31.0); Mean Corpuscular Volume 94.9 fL (80.0-94.0); Mean Platelet Volume 9.1 fL (7.4-10.4); Platelet Count 190 10^3/uL (130-400); Red Blood Cell Count 3.95 10^6/uL (4.70-6.10); Red Cell Dist. Width 13.8 % (11.5-14.5); White Blood Cell Count 7.9 10^3/uL (4.8-10.8)
[2024-07-30 09:10] LABS: Blood Urea Nitrogen 16 mg/dl (9-20); Calcium 9.9 mg/dl (8.4-10.2); Carbon Dioxide 28 mmol/L (22-30); Chloride 99 mmol/L (98-107); Estimated Creatinine Clearance 51 ml/min; Glucose 87 mg/dl (70-99); Sodium 137 mmol/L (135-145); eGFR > 60.00
[2024-07-30 09:11] LABS: Vancomycin Peak 24.9 ug/ml (18-26)
[2024-07-30] MEDS: PROTONIX 40 MG PO (09:13)
[2024-07-30] MEDS: LIPITOR 10 MG PO (09:13)
[2024-07-30] MEDS: MAG-TAB SR 84 MG PO (09:13)
[2024-07-30] MEDS: NORVASC 2.5 MG PO ×2 (09:13→20:40)
[2024-07-30] MEDS: TOPROL XL 12.5 MG PO (09:13)
[2024-07-30] MEDS: VITAMIN C 500 MG PO (09:15)
[2024-07-30] MEDS: VITAMIN D3 (cholecalciferol) 125 MCG PO (09:15)
[2024-07-30] MEDS: VITAMIN B-12 1000 MCG PO (09:15)
--- NOTE | 2024-07-30 09:49 | PHA.VAN.FU ---
Vancomycin Assessment / Plan
- Assessment
Renal Function: Stable
WBC's are: WNL
In the past 24 hrs, patient has been: Afebrile
- Dosing Plan
Continue: Vanc 1250mg Q24H
- Monitoring Plan
Peak Level: peak = 24.9 (drawn ~1.6H after end of previous infusion)
Trough Level: 07/31 0530
Monitoring Comments: levels drawn after 4th maintenance dose; will assess with trough tomorrow
- Follow Up
Pharmacy will continue to follow.
Vancomycin Follow UP
- -
Patient Age: 88
Patient Sex: Male
Vancomycin Day #: 5
Indication: Bone And Joint
Requesting Provider: Dr. Villagomez (resident) / Dr. Chandler
Pertinent Antimicrobial Allergies:
penicillins - hand swelled; rash; occurred as teenager
Height / Weight:
Height 5 ft 7 in
Actual Weight 61.774 kg
Pertinent Past Medical History: Right knee arthroscopy in past
- Vital Signs / Lab Results
Temp Pulse Resp BP Pulse Ox
98.4 F 92 18 136/70 97
07/30/24 08:05 07/30/24 08:05 07/30/24 08:05 07/30/24 08:05 07/30/24 08:05
Lab Results - Hematology
07/29/24 07/30/24
07:00 08:06
WBC 7.8 7.9
Lab Results - Chemistry
07/28/24 07/29/24 07/30/24
12:16 07:00 08:06
BUN 13 16
Creatinine 0.8 0.8 0.9
Estimated Creat Clear 60 59 51
Microbiology Results
07/26/24 08:39 Blood Culture - Preliminary
Blood/Venous Staphylococcus capitis
Gram Stain - Preliminary
07/29/24 07:00 Blood Culture - Preliminary
Blood/Venous No Growth in 24 hours- Final report to follow
07/26/24 08:39 Blood Culture - Preliminary
Blood/Venous Staphylococcus epidermidis
Gram Stain - Preliminary
07/26/24 03:49 Body Fluid Culture - Preliminary
Joint Fluid Coagulase neg. staphylococcus
Gram Stain - Preliminary
07/27/24 13:40 MRSA Screen - Final
Nose No Methicillin Resistant Staphylococcus aureus isolated.
Therapeutic Drug Monitoring
Vancomycin Peak 24.9 ug/ml (18-26) 07/30/24 08:33
--- NOTE | 2024-07-30 10:35 | W.PN.HOSP.TC ---
Addendum entered and electronically signed by Chino Chin MD 07/30/24 23:05:
Attending Addendum-
Attending Addendum-I saw and evaluated the patient. I reviewed the resident�s note and agree with findings and plan as documented in the resident�s note. Sub: Seen with present. feels that ROM in right knee much better today. pain well
controlled. Full 12 point ROS reviewed and negative except as documented Exam- vitals reviewed in EMR GEN-NAD heart No M/R/G RRR lungs clear abd soft LE no edema Right knee good ROM no redness swelling or pain to palp. no fluid appreciated distal
pulses intact
Plan:
# Septic Arthritis of Right Knee Joint
- tapped on 07/26 in ED
- WBC 67K PMN 93%
- repeat tap's on 07/27 and 07/28
- DC vancomycin start ancef per ID 07/30
- RAMESH epi from joint fluid and blood
- one blood cx with staph capitis
- repeat blood cx NGTD 07/29
- place PICC for IV abx x 6 weeks
- for I and D washout if clinically worsens
- appreciate ortho in put
- c/s CM
# s/p TAVR x 2
- check echo 07/30-Normal left ventricular size and systolic function. No regional wall motion
abnormalities are seen. LV ejection fraction is 60-65% Mild concentric left ventricular hypertrophy.
Well seated TAVR.
-No gross vegetations seen, no murmurs or stigmata of endocarditis present.
# Leukocytosis
- resolved
- repeat CBC in am
# H/O Gout
- neg crystals on tap
- not in acute flare
- monitor closely
#HTN
- cont amlodipine and metoprolol
- CTM
#HLD- cont atorvastatin
#BPH- cont finasteride
Code Full
Dispo Eventual DC home with HC with
Time spent coordinating care, review of plan of care with resident, personally reviewed records in EMR, med rec, consults, notes, labs, radiology, d/w nursing and ID � 55 mins
Original Note:
Today's Communication/Plan
-
Continue IV antibiotics
Assessment / Plan
Assessment / Plan
IMPRESSION: 88-year-old male with PMH of gout, hypertension, cirrhosis who presented to ED with acute gout flares for 2 days.
Assessment/plan:
# Right knee joint septic arthritis
Knee tap 07/26 with WBC 67K, PMN 93%, negative for crystals. -CRP 40.6, ESR mildly elevated.
Preliminary blood cultures 07/26 with coagulase-negative- staph.
Possible point of entry during recent knee injection.
Ortho following, does not believe any further aspirations required
Righ knee aspiration with bloody fluid 07/27 by ortho.
Status post repeat knee aspiration by orthopedic 07/28
Knee fluid culture resulted in Staph epidermidis
Continue vancomycin, day 5
No further steroid injection on right knee for at least one year, pt aware.
Lyme serology negative
Right knee x-ray 4 views with moderate degenerative changes.
#Staph epidermidis/capitis bacteremia
2 set of blood cultures positive but unclear if same site or different
History of TAVR x 2
ordered echocardiogram as patient has bacteremia and history of TAVR x 2
Continue current IV antibiotics, vancomycin, day 5
ID following, appreciate recommendation
Daily BMP for renal function as patient is on vancomycin
# History of gout
History of gout,
Negative crystals on knee tap.
D/c colchicine.
Tylenol for mild pain, ketorolac for moderate pain.
#Leukocytosis
Resolved.
Inflammatory process from right knee septic arthritis.
Patient is afebrile.
Continue antibiotics.
#Mild hyponatremia
Resolved
Most likely hypovolemic hyponatremia given poor oral intake.
IV fluids discontinued
Daily BMP.
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
Suspect remote EtOH vs BURGOS.
MELD score 3.0 is 8, patient not a candidate for transplant given his age.
Patient reportedly declined hep B immunization, hep A immune.
Defer management to outpatient hepatology
#Hyperlipidemia
Continue atorvastatin
#Essential hypertension
Continue Toprol, amlodipine.
DVT PPx: Lovenox
Diet: Cholesterol-lowering
CODE STATUS: Full code
Anticipated Discharge: 24 - 48 hours
Subjective/Interval History
-
Date of Service: July 30, 2024
No acute events overnight
Objective Data
-
Labs:
Laboratory Results
07/30/24
08:06
WBC 7.9
Hgb 13.3
Hct 37.5 L
Plt Count 190
Sodium 137
Potassium 4.0
Chloride 99
Carbon Dioxide 28
BUN 16
Creatinine 0.9
Glucose 87
Calcium 9.9
Vital Signs:
Vital Signs
Temp Pulse Resp BP Pulse Ox
98.4 F 92 18 136/70 97
07/30/24 08:05 07/30/24 08:05 07/30/24 08:05 07/30/24 08:05 07/30/24 08:05
I&O
07/29/24 07/30/24 07/31/24
06:59 06:59 06:59
Intake Total 1715 / 1715 1475 / 1475
Balance 1715 / 1715 1475 / 1475
Review of Systems
-
History Source: Patient
Constitutional: Reports No Symptoms
Respiratory: Reports No Symptoms
Cardiac: Reports No Symptoms
Abdomen/GI: Reports No Symptoms
Musculoskeletal: Reports No Symptoms
Neuro: Reports No Symptoms
Physical Exam
-
General: Well Developed, Well Nourished, No Apparent Distress, Comfortable and Conversant
Respiratory: Clear to Auscultation
Cardiac: Regular Rhythm and S1/S2
GI: Soft, Nontender, Nondistended and Normal Bowel Sounds
Musculoskeletal: No Edema and Other (Right knee decreased range of motion, no erythema or effusion)
Skin: Warm and Dry
Neuro: Awake, Alert, Oriented and AO x 3
Psych: Calm and Intact Judgement/Insight
Data Reviewed
-
Labs: Labs Reviewed by me and Discussed with Physician
--- NOTE | 2024-07-30 12:28 | W.PN.UPDATE ---
Update Note
Progress Note Update
Appreciate efforts of the primary team. Continue treatment. Afeb this AM. WBC 7.9. Blood Cx negative @ 24 hours. Patient is resting comfortable in bed this morning, on the phone with family at the time of my arrival. He endorses absolutely no pain
about the right knee. Range of motion 0 to 115 degrees without any pain whatsoever. trace intra-articular effusion at best, nothing worth aspiration. No joint line pain. Calf is soft and nontender. DNVI. Recomend continuing treatment per the
primary team at this time. Would hope for D/c soon. orthopedically we plan to monitor clinically with serial aspirations, if indicated. from our standpoint he may be discharged when medically optimized.
--- NOTE | 2024-07-30 15:22 | CM ---
Pt seen bedside. Discussed PT rec. of OP therapy. Pt stated he will go to 's OP as his currently goes there.
CM informed hospitalist will provide script for OP therapy at d/c
Cont. IV abx
Plan: Home w/ OP therapy- [facility]
--- NOTE | 2024-07-30 15:45 | W.PN.ID1 ---
Date of Service
Date of Service: July 30, 2024
Today's Communication
Changed to cefazolin. See below�
Assessment / Plan
Bacteremia with coag negative staph.
Right knee effusion
Septic arthritis right knee
-Patient reports steroid injection around 07/11/24
- Cx's with Staph epi.
Elevated ESR
Elevated CRP
Hx TAVR (x2)
Dyslipidemia
CAD
Prostate cancer (s/p IMRT)
HTN
Valvular disease
Diverticulosis
Recommendations:
Joint fluid cultures revealed growth of staph epi sensitive to methicillin.
Change vancomycin to cefazolin 2 g IV every 8 hours. Patient will require a 6-week course.
PICC line has been written for.
Home infusion sheet has been placed on paper chart.
Will follow-up in the office in 2 to 3 weeks.
����������������������������������������������������������
Chief Complaint
-: Other (Right knee septic arthritis)
Subjective / Review of Systems
Patient seen and examined. Reports right knee feeling improved. Denies fevers or chills.
Review of Systems: No Fever and No Chills
Vital Signs / Physical Exam
Vital Signs
Vital Signs
Temp Pulse Resp BP Pulse Ox
98.4 F 92 18 136/70 97
07/30/24 08:05 07/30/24 08:05 07/30/24 08:05 07/30/24 08:05 07/30/24 08:05
Physical Exam
Constitutional: No Acute Distress and Comfortable
Eyes: Sclera Anicteric
Cardiovascular: S1/S2; Negative S3/S4
Pulmonary: Non Labored
Gastrointestinal: Soft and Non Tender
Extremities: Negative Edema, Cyanosis or Erythema
Musculoskeletal: Joint Swelling (Diminished right knee swelling. Mild warmth)
Neurological: Awake and Alert
Psychological: Calm
Objective Data
Lab Data
Lab Results
07/30/24 08:06
07/30/24 08:06
ESR 39 mm/hour (0-20) H 07/26/24 02:17
PT 14.9 Sec (11.4-14.6) H 07/27/24 07:40
INR 1.18 07/27/24 07:40
Estimated Creat Clear 51 ml/min 07/30/24 08:06
Total Bilirubin 0.9 mg/dl (0.2-1.3) 07/26/24 02:17
AST 32 U/L (17-59) 07/26/24 02:17
ALT 33 U/L (0-50) 07/26/24 02:17
Alkaline Phosphatase 88 U/L (38-126) 07/26/24 02:17
C-Reactive Protein 40.60 mg/L (0.0-10.00) H 07/26/24 02:17
Most recent labs reviewed.
Micro Results:
07/26/24 03:49 Body Fluid Culture - Final
Joint Fluid Staphylococcus epidermidis
Gram Stain - Final
07/26/24 08:39 Blood Culture - Preliminary
Blood/Venous Staphylococcus capitis
Gram Stain - Preliminary
07/29/24 07:00 Blood Culture - Preliminary
Blood/Venous No Growth in 24 hours- Final report to follow
07/26/24 08:39 Blood Culture - Preliminary
Blood/Venous Staphylococcus epidermidis
Gram Stain - Preliminary
07/27/24 13:40 MRSA Screen - Final
Nose No Methicillin Resistant Staphylococcus aureus isolated.
Imaging:
07/26/2024 X-ray right knee: No displaced fracture or dislocation. Small suprapatellar joint effusion. Mild joint space narrowing. Chondrocalcinosis is seen within the medial and lateral compartments. Please see full dictation for additional
detail.
[2024-07-30 16:14] VITALS: BP 125/68
[2024-07-30] MEDS: ANCEF 10 IV ×2 (16:24→23:42)
[2024-07-30 16:57] VITALS: BP 136/70
[2024-07-30] MEDS: LOVENOX 40 MG SC (17:12)
[2024-07-30] MEDS: PROSCAR 5 MG PO (17:12)
[2024-07-30 20:39] VITALS: BP 133/68
[2024-07-30] MEDS: FLUSH (NSS) 2 FLUSH IV (23:42)
[2024-07-30 23:55] VITALS: BP 128/68
[2024-07-31 05:09] LABS: Hematocrit 32.1 % (39.0-52.0); Hemoglobin 11.4 g/dL (13.0-18.0); Mean Corp Hgb Conc. 35.5 g/dL (33.0-37.0); Mean Corpuscular Hgb 33.3 pg (27.0-31.0); Mean Corpuscular Volume 93.9 fL (80.0-94.0); Mean Platelet Volume 9.6 fL (7.4-10.4); Platelet Count 171 10^3/uL (130-400); Red Blood Cell Count 3.42 10^6/uL (4.70-6.10); Red Cell Dist. Width 13.7 % (11.5-14.5); White Blood Cell Count 8.3 10^3/uL (4.8-10.8)
[2024-07-31 05:38] LABS: ALT (SGPT) 55 U/L (0-50); AST (SGOT) 41 U/L (17-59); Albumin 3.2 g/dl (3.5-5.0); Alkaline Phosphatase 97 U/L (38-126); Blood Urea Nitrogen 20 mg/dl (9-20); Calcium 9.3 mg/dl (8.4-10.2); Carbon Dioxide 27 mmol/L (22-30); Chloride 99 mmol/L (98-107); Estimated Creatinine Clearance 45 ml/min; Glucose 81 mg/dl (70-99); Potassium 3.7 mmol/L (3.5-5.1); Sodium 137 mmol/L (135-145); Total Bilirubin 0.2 mg/dl (0.2-1.3); Total Protein 5.5 g/dl (6.3-8.2); eGFR > 60.00
[2024-07-31 06:00] VITALS: BMI 22.2
[2024-07-31 07:15] VITALS: BP 130/65
--- NOTE | 2024-07-31 07:35 | W.PN.UPDATE ---
Update Note
Progress Note Update
Appreciate efforts of the primary team. Continue treatment, antibiotics transitioned to cefazolin. Afeb this AM. WBC 8.3. Blood Cx negative @ 48 hours. Patient is resting comfortable in bed this morning. He endorses absolutely no pain about the
right knee. Range of motion 0 to 120 degrees without any pain whatsoever. No effusion, erythema or lesions. No joint line pain. Calf is soft and nontender. DNVI. Recomend continuing treatment per the primary team at this time. Would hope for D/c
soon. orthopedically we plan to monitor clinically with serial aspirations, if indicated. from our standpoint he may be discharged when medically optimized.
[2024-07-31] MEDS: TOPROL XL 12.5 MG PO (09:06)
[2024-07-31] MEDS: PROTONIX 40 MG PO (09:06)
[2024-07-31] MEDS: ANCEF 10 IV ×2 (09:06→17:11)
[2024-07-31] MEDS: FLUSH (NSS) 2 FLUSH IV ×2 (09:06→17:11)
[2024-07-31] MEDS: VITAMIN B-12 1000 MCG PO (09:07)
[2024-07-31] MEDS: VITAMIN D3 (cholecalciferol) 125 MCG PO (09:07)
[2024-07-31] MEDS: LOW STRENGTH ASPIRIN 81 MG PO (09:07)
[2024-07-31] MEDS: MAG-TAB SR 84 MG PO (09:07)
[2024-07-31] MEDS: LIPITOR 10 MG PO (09:08)
[2024-07-31] MEDS: NORVASC 2.5 MG PO ×2 (09:08→20:52)
[2024-07-31] MEDS: VITAMIN C 500 MG PO (09:08)
--- NOTE | 2024-07-31 10:12 | W.PN.HOSP.TC ---
Addendum entered and electronically signed by Chino Chin MD 07/31/24 23:54:
Attending Addendum-I saw and evaluated the patient. I reviewed the resident�s note and agree with findings and plan as documented in the resident�s note. Sub: upset he has to stay another night. Restless night with roommate. pain well controlled.
Full 12 point ROS reviewed and negative except as documented Exam- vitals reviewed in EMR GEN-NAD heart No M/R/G RRR lungs clear abd soft LE no edema Right knee good ROM no redness swelling or pain to palp. no fluid appreciated distal pulses intact
RUE PICC in place
Plan:
# Septic Arthritis of Right Knee
- tapped on 07/26 in ED
- repeat tap's on 07/27 and 07/28
- DC'd vancomycin cont ancef per ID 07/30
- RAMESH epi from joint fluid and blood
- one blood cx with staph capitis
- repeat blood cx NGTD 07/29
- PICC placed 07/31
- appreciate ortho input
- 6 wks IV abx
# s/p TAVR x 2
- check echo 07/30-Normal left ventricular size and systolic function. No regional wall motion
abnormalities are seen. LV ejection fraction is 60-65% Mild concentric left ventricular hypertrophy.
Well seated TAVR.
-No gross vegetations seen, no murmurs or stigmata of endocarditis present.
# Leukocytosis
- resolved
- repeat CBC in am
# H/O Gout
- neg crystals on tap
- not in acute flare
- monitor closely
#HTN
- cont amlodipine and metoprolol
- CTM
#HLD- cont atorvastatin
#BPH- cont finasteride
Code Full
Dispo- DC home with HC with in AM
Time spent coordinating care, review of plan of care with resident, personally reviewed records in EMR, med rec, consults, notes, labs, radiology, d/w nursing and CM � 56 mins
Original Note:
Today's Communication/Plan
-
Discharge home with IV antibiotics and outpatient physical therapy with infectious disease follow-up in 2 to 3 weeks
Assessment / Plan
Assessment / Plan
IMPRESSION: 88-year-old male with PMH of gout, hypertension, cirrhosis who presented to ED with acute gout flares for 2 days.
Assessment/plan:
# Right knee joint septic arthritis
Knee tap 07/26 with WBC 67K, PMN 93%, negative for crystals. -CRP 40.6, ESR mildly elevated.
Preliminary blood cultures 07/26 with coagulase-negative- staph.
Possible point of entry during recent knee injection.
Ortho following, does not believe any further aspirations required
Righ knee aspiration with bloody fluid 07/27 by ortho.
Status post repeat knee aspiration by orthopedic 07/28
Knee fluid culture resulted in Staph epidermidis
Patient received 5 days of vancomycin, infectious disease transitioned him to cefazolin 2 g every 8 IV
Patient received PICC line placement yesterday, good placement confirmed on x-ray, in preparation for discharge. Patient will receive 6 weeks of IV cefazolin
Patient will follow-up with infectious disease in 2 to 3 weeks in their office as outpatient
Patient will follow-up outpatient physical therapy at [place] once discharged
No further steroid injection on right knee for at least one year, pt aware.
Lyme serology negative
Right knee x-ray 4 views with moderate degenerative changes.
#Staph epidermidis/capitis bacteremia
2 set of blood cultures positive but unclear if same site or different
History of TAVR x 2
ordered echocardiogram as patient has bacteremia and history of TAVR x 2
Echocardiogram returned normal, unchanged compared to previous echo
Antibiotics switched to cefazolin IV 2 g every 8 hours
ID following, appreciate recommendation
Daily BMP for renal function as patient is on vancomycin
# History of gout
History of gout,
Negative crystals on knee tap.
D/c colchicine.
Tylenol for mild pain, ketorolac for moderate pain.
#Leukocytosis
Resolved.
Inflammatory process from right knee septic arthritis.
Patient is afebrile.
Continue antibiotics.
#Mild hyponatremia
Resolved
Most likely hypovolemic hyponatremia given poor oral intake.
IV fluids discontinued
Daily BMP.
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
Suspect remote EtOH vs BURGOS.
MELD score 3.0 is 8, patient not a candidate for transplant given his age.
Patient reportedly declined hep B immunization, hep A immune.
Defer management to outpatient hepatology
#Hyperlipidemia
Continue atorvastatin
#Essential hypertension
Continue Toprol, amlodipine.
DVT PPx: Lovenox
Diet: Cholesterol-lowering
CODE STATUS: Full code
Anticipated Discharge: Today
Subjective/Interval History
-
Date of Service: July 31, 2024
No acute events overnight
Patient reports resolution of all symptoms, effusion no longer present right knee, full range of motion
Objective Data
-
Labs:
Laboratory Results
07/31/24
04:16
WBC 8.3
Hgb 11.4 L
Hct 32.1 L
Plt Count 171
Sodium 137
Potassium 3.7
Chloride 99
Carbon Dioxide 27
BUN 20
Creatinine 1.0
Glucose 81
Calcium 9.3
Total Bilirubin 0.2
AST 41
ALT 55 H
Alkaline Phosphatase 97
Vital Signs:
Vital Signs
Temp Pulse Resp BP Pulse Ox
98.1 F 82 18 130/65 93
07/31/24 07:15 07/31/24 07:15 07/31/24 07:15 07/31/24 07:15 07/31/24 07:15
I&O
07/30/24 07/31/24 08/01/24
06:59 06:59 06:59
Intake Total 1474 / 1474 1620 / 1620
Balance 1474 / 162
Review of Systems
-
History Source: Patient
Constitutional: Reports No Symptoms
Respiratory: Reports No Symptoms
Cardiac: Reports No Symptoms
Abdomen/GI: Reports No Symptoms
Musculoskeletal: Reports No Symptoms
Physical Exam
-
General: Well Developed, Well Nourished, No Apparent Distress and Conversant
Respiratory: Clear to Auscultation
Cardiac: Regular Rhythm and S1/S2
GI: Soft, Nontender, Nondistended and Normal Bowel Sounds
Musculoskeletal: No Edema and Other (No effusion present in right knee, full range of motion, no pain to palpation)
Skin: Warm and Dry
Neuro: Awake, Alert, Oriented and AO x 3
Psych: Calm and Intact Judgement/Insight
Data Reviewed
-
Labs: Labs Reviewed by me and Discussed with Physician
--- NOTE | 2024-07-31 11:33 | CM ---
Pt seen bedside. Pt will need home IV abx for 6 weeks
Pt agreeable to use [facility] as supplier and for VN
Script and insurance faxed to [facility], awaiting out of pocket costs
Per [facility], [facility] can likely begin tomorrow
CM TT resident to update, pt updated at bedside
Plan: Home w/ OP therapy via [facility] and IV abx via [facility]
--- NOTE | 2024-07-31 14:42 | CM ---
Text from [facility] from [facility]
Patients co-pay for IV meds will be $12 per week and insurance covers supplies and nursing.
[facility]ra will be in around 11 am tomorrow to do teaching with patient and spouse.
[facility] will deliver for his afternoon dose of Ancef.
[facility] spoke with patient, and spouse will be in the hospital tomorrow between 11-11:30 am for teaching.
Plan: home with IV anbx tomorrow thru [facility], will require script for outpatient therapy.
[facility]
[2024-07-31 15:25] VITALS: BP 120/65
[2024-07-31] MEDS: PROSCAR 5 MG PO (17:11)
[2024-07-31] MEDS: LOVENOX 40 MG SC (17:11)
[2024-07-31 23:00] VITALS: BP 108/61
[2024-08-01] MEDS: ANCEF 10 IV ×2 (00:03→09:28)
[2024-08-01] MEDS: FLUSH (NSS) 2 FLUSH IV ×2 (00:04→09:29)
[2024-08-01 05:40] LABS: Hematocrit 31.8 % (39.0-52.0); Hemoglobin 11.4 g/dL (13.0-18.0); Mean Corp Hgb Conc. 35.8 g/dL (33.0-37.0); Mean Corpuscular Hgb 33.9 pg (27.0-31.0); Mean Corpuscular Volume 94.6 fL (80.0-94.0); Mean Platelet Volume 9.1 fL (7.4-10.4); Platelet Count 157 10^3/uL (130-400); Red Blood Cell Count 3.36 10^6/uL (4.70-6.10); Red Cell Dist. Width 13.8 % (11.5-14.5); White Blood Cell Count 8.3 10^3/uL (4.8-10.8)
[2024-08-01 06:00] VITALS: BMI 22.3
[2024-08-01 06:08] LABS: ALT (SGPT) 35 U/L (0-50); AST (SGOT) 37 U/L (17-59); Albumin 3.2 g/dl (3.5-5.0); Alkaline Phosphatase 95 U/L (38-126); Blood Urea Nitrogen 16 mg/dl (9-20); Calcium 9.4 mg/dl (8.4-10.2); Carbon Dioxide 29 mmol/L (22-30); Chloride 102 mmol/L (98-107); Estimated Creatinine Clearance 47 ml/min; Glucose 86 mg/dl (70-99); Potassium 3.8 mmol/L (3.5-5.1); Sodium 137 mmol/L (135-145); Total Bilirubin 0.2 mg/dl (0.2-1.3); Total Protein 5.5 g/dl (6.3-8.2); eGFR > 60.00
[2024-08-01 07:35] VITALS: BP 127/71
--- NOTE | 2024-08-01 07:48 | W.PN.UPDATE ---
Update Note
Progress Note Update
Appreciate efforts of the primary team. Continue treatment, antibiotics transitioned to cefazolin. Afeb this AM. WBC 8.3 yesterday. Blood Cx negative @ 72 hours. Patient is resting comfortable in bed this morning. He endorses absolutely no pain
about the right knee. Range of motion 0 to 120 degrees without any pain whatsoever. No effusion, erythema or lesions. No joint line pain. Calf is soft and nontender. DNVI. Recomend continuing treatment per the primary team at this time. Hopeful
for d/c today. orthopedically we plan to monitor clinically with serial aspirations, if indicated. from our standpoint he may be discharged when medically optimized.
[2024-08-01] MEDS: PROTONIX 40 MG PO (09:29)
[2024-08-01] MEDS: VITAMIN B-12 1000 MCG PO (09:29)
[2024-08-01] MEDS: VITAMIN C 500 MG PO (09:29)
[2024-08-01] MEDS: TOPROL XL 12.5 MG PO (09:29)
[2024-08-01] MEDS: MAG-TAB SR 84 MG PO (09:30)
[2024-08-01] MEDS: VITAMIN D3 (cholecalciferol) 125 MCG PO (09:30)
[2024-08-01] MEDS: LIPITOR 10 MG PO (09:30)
[2024-08-01] MEDS: NORVASC 2.5 MG PO (09:30)
--- NOTE | 2024-08-01 09:43 | W.PN.HOSP.TC ---
Addendum entered and electronically signed by Chino Chin MD 08/02/24 00:32:
Attending Addendum-I saw and evaluated the patient. I reviewed the resident�s note and agree with findings and plan as documented in the resident�s note. Sub: No complains ready to go home. taught how to give abx at home. seen with present.
Full 12 point ROS reviewed and negative except as documented Exam- vitals reviewed in EMR GEN-NAD heart No M/R/G RRR lungs clear abd soft LE no edema Right knee good ROM no redness swelling or pain to palp. no fluid appreciated distal pulses intact
RUE PICC in place
Plan:
# Septic Arthritis of Right Knee
- tapped on 07/26 in ED
- repeat tap's on 07/27 and 07/28
- ancef per ID started on 07/30
- RAMESH epi from joint fluid and blood
- one blood cx with staph capitis
- repeat blood cx NGTD 07/29
- PICC placed 07/31
- appreciate ortho input
- 6 wks IV abx-DC teaching completed
# s/p TAVR x 2
- check echo 07/30-Normal left ventricular size and systolic function. No regional wall motion
abnormalities are seen. LV ejection fraction is 60-65% Mild concentric left ventricular hypertrophy.
Well seated TAVR.
-No gross vegetations seen, no murmurs or stigmata of endocarditis present.
# Leukocytosis
- resolved
- repeat CBC in am
# H/O Gout
- neg crystals on tap
- not in acute flare
- monitor closely
#HTN
- cont amlodipine and metoprolol
- CTM
#HLD- cont atorvastatin
#BPH- cont finasteride
Code Full
Dispo- DC home with HC with
Time spent coordinating care, DC planning, review of DC plan of care with resident, transition of care, review of records, med rec/scripts sent electronically, consults, notes, d/w consultants, nursing, and CM� 35 mins
Original Note:
Today's Communication/Plan
-
Discharge home on IV antibiotics with infectious disease follow-up in 2 to 3 weeks
Outpatient physical therapy
prescription for walker
Assessment / Plan
Assessment / Plan
IMPRESSION: 88-year-old male with PMH of gout, hypertension, cirrhosis who presented to ED with acute gout flares for 2 days.
Assessment/plan:
# Right knee joint septic arthritis
Knee tap 07/26 with WBC 67K, PMN 93%, negative for crystals. -CRP 40.6, ESR mildly elevated.
Preliminary blood cultures 07/26 with coagulase-negative- staph.
Possible point of entry during recent knee injection.
Ortho following, does not believe any further aspirations required
Righ knee aspiration with bloody fluid 07/27 by ortho.
Status post repeat knee aspiration by orthopedic 07/28
Knee fluid culture resulted in Staph epidermidis
Patient received 5 days of vancomycin, infectious disease transitioned him to cefazolin 2 g every 8 IV, currently day 2
Patient received PICC line placement, good placement confirmed on x-ray, in preparation for discharge. Patient will receive 6 weeks of IV cefazolin
Patient will follow-up with infectious disease in 2 to 3 weeks in their office as outpatient
Patient will follow-up outpatient physical therapy at [place] once discharged
Prescription for walker written for patient
No further steroid injection on right knee for at least one year, pt aware.
Lyme serology negative
Right knee x-ray 4 views with moderate degenerative changes.
#Staph epidermidis/capitis bacteremia
2 set of blood cultures positive but unclear if same site or different
History of TAVR x 2
ordered echocardiogram as patient has bacteremia and history of TAVR x 2
Echocardiogram returned normal, unchanged compared to previous echo
Antibiotics switched to cefazolin IV 2 g every 8 hours
ID following, appreciate recommendation
Daily BMP for renal function as patient is on vancomycin
# History of gout
History of gout,
Negative crystals on knee tap.
D/c colchicine.
Tylenol for mild pain, ketorolac for moderate pain.
#Leukocytosis
Resolved.
Inflammatory process from right knee septic arthritis.
Patient is afebrile.
Continue antibiotics.
#Mild hyponatremia
Resolved
Most likely hypovolemic hyponatremia given poor oral intake.
IV fluids discontinued
Daily BMP.
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
Suspect remote EtOH vs BURGOS.
MELD score 3.0 is 8, patient not a candidate for transplant given his age.
Patient reportedly declined hep B immunization, hep A immune.
Defer management to outpatient hepatology
#Hyperlipidemia
Continue atorvastatin
#Essential hypertension
Continue Toprol, amlodipine.
DVT PPx: Lovenox
Diet: Cholesterol-lowering
CODE STATUS: Full code
Anticipated Discharge: Today
Subjective/Interval History
-
Date of Service: August 01, 2024
Patient switch rooms, much happier with new roommate
Slept well
Objective Data
-
Labs:
Laboratory Results
08/01/24
05:29
WBC 8.3
Hgb 11.4 L
Hct 31.8 L
Plt Count 157
Sodium 137
Potassium 3.8
Chloride 102
Carbon Dioxide 29
BUN 16
Creatinine 1.0
Glucose 86
Calcium 9.4
Total Bilirubin 0.2
AST 37
ALT 35
Alkaline Phosphatase 95
Vital Signs:
Vital Signs
Temp Pulse Resp BP Pulse Ox
98.0 F 93 16 127/71 98
08/01/24 07:35 08/01/24 07:35 08/01/24 07:35 08/01/24 07:35 08/01/24 07:35
I&O
07/31/24 08/01/24 08/02/24
06:59 06:59 06:59
Intake Total 1620 / 1620 480 / 480
Balance 1620 / 1620 480 / 480
Review of Systems
-
History Source: Patient
Constitutional: Reports No Symptoms
Respiratory: Reports No Symptoms
Cardiac: Reports No Symptoms
Abdomen/GI: Reports No Symptoms
Musculoskeletal: Reports Other (Reports slight decrease in range of motion of right knee, not new)
Physical Exam
-
General: Well Developed, Well Nourished, No Apparent Distress and Comfortable
Respiratory: Clear to Auscultation
Cardiac: Regular Rhythm and S1/S2
GI: Soft, Nontender, Nondistended and Normal Bowel Sounds
Musculoskeletal: No Edema and Other (No effusion present in right knee, no pain to palpation)
Skin: Warm and Dry
Neuro: Awake, Alert, Oriented and AO x 3
Psych: Calm and Intact Judgement/Insight
Data Reviewed
-
Labs: Labs Reviewed by me and Discussed with Physician
--- NOTE | 2024-08-01 10:41 | W.DCSUMMARY ---
Addendum entered and electronically signed by Chino Chin MD 08/02/24 00:30:
Read, reviewed, and agree. See same day progress note for additional details.
Cody Chin MD
Original Note:
Documented by User: Joss Colvin DO, Resident 08/01/24 16:51
Discharge Summary
Discharge Data
Date of Admission: 07/26/24
Date of Discharge: 08/01/24
-
Pending Results: No
Hospital Course
Discharging Physician : Giuseppe Colvin
Disposition : Home with outpatient PT
Primary care physician : Dr. Rosie Ortega
Principal Discharge diagnosis : Right knee septic arthritis/staph bacteremia
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
Hospital Course : 88-year-old male past ministry of liver cirrhosis, hypertension, prostate cancer status post radiation, gout, basal cell carcinoma, inguinal hernia, aortic stenosis status post aortic valve replacement, TAVR presented to the
[facility] emergency department for 2 days of right knee pain, swelling warmth and inability walk. He endorsed subjective fever and chills. In the emergency department patient received a right knee arthrocentesis and fluid was sent for culture and
analysis. Joint fluid demonstrated white blood cell count 63,000, no crystals. Patient was started on vancomycin and admitted. Patient received 5 days of vancomycin total. Later on infectious disease was consulted and transitioned him to
cefazolin IV for which she received 2 days total while inpatient. During his stay orthopedics was consulted and continued to follow the patient he got a repeat knee arthrocentesis second day of his admission. Orthopedics believes that the source
of his infection was from his right knee intra-articular steroid injections which she had been receiving as outpatient. Patient also had blood cultures drawn which resulted in Staph epidermidis and staph capitis. It is unsure if these were
contaminants or if he truly had bacteremia from the staff infections. Repeat blood culture was drawn and resulted no growth within 24 hours, this was after he had been receiving antibiotics. Once blood cultures had resulted, infectious disease
decided to start the patient on intravenous cefazolin, he is planning to get 6 weeks of intravenous cefazolin infusions at home, as an outpatient. During his stay patient received a PICC line, placement was confirmed with x-ray for which she will
use for his intravenous antibiotics. Patient also received training on how to administer IV antibiotics from nursing. Patient will continue doing infusions of IV antibiotics for the next 6 weeks at home. He will also follow-up with physical
therapy as an outpatient at [facility], prescription was provided for physical therapy and for a walker. Of note patient also received an echocardiogram as he had history of TAVR x 2 and now has bacteremia. Echocardiogram resulted normal, no
significant changes from previous echo a year prior. Patient's leukocytosis resolved, fever resolved and effusion in his knee had resolved. Orthopedics signed off on him and recommended following up outpatient. Patient will also follow-up with
infectious disease in 2 to 3 weeks regarding his continued course of IV antibiotics. Patient will also follow-up with his primary care physician within 1 week of discharge. Patient was discharged home with outpatient physical therapy and will
follow-up with orthopedics, infectious disease and primary care physician.
Important imaging findings :
07/26/2024 knee x-ray, impression:
1. Small suprapatellar joint effusion, increased in size compared to prior x-ray.
2. Moderate to severe degenerative change as above, without significant change compared to 11/10/2022.
07/30/2024 chest x-ray, impression:
Right PICC line with tip in good position, within the SVC.
07/30/2024, echocardiogram, conclusion:
Normal left ventricular size and systolic function. No regional wall motion
abnormalities are seen. LV ejection fraction is 60-65% by Kendrick's method of
discs. Mild concentric left ventricular hypertrophy.
Well seated TAVR. Garay Zohaib 23. Peak/mean gradients are 17/10mmHg. No
aortic regurgitation is seen.
Compared to the previous echo from Jul 2023, there is no significant change.
Procedure findings :
07/27/2024, right knee aspiration
07/28/2024, right knee aspiration repeat
07/30/2024 PICC line placement: Successful placement.
blood cultures:
Blood Culture Preliminary 07/30/24-909
Negative for MRSA/MSSA by PCR methodology.
Staphylococcus capitis
Gram Stain-blood Preliminary 07/27/24
Gram stain of aerobic blood culture bottle reveals Gram
Positive Cocci in clusters.
Blood Culture Preliminary 07/29/24
Staphylococcus epidermidis
Gram Stain-blood Preliminary 07/27/24
Gram stain of anaerobic blood culture bottle reveals
Gram Positive Cocci in clusters
Blood Culture Preliminary 08/01/24
No Growth in 72 hours- Final report to follow
Discharge Plan
-
Patient Disposition: Home (Routine Discharge)
Discharge Diagnosis/Procedures: Right knee septic arthritis
Condition: Good
Diet: Regular
Activity: As tolerated
Driving Restrictions: No driving for 24 hours
Bathing Restrictions: None
Other Services: PT and OT
Activity Restrictions/Additional Instructions:
please follow up with pcp within 1 week of discharge
please follow up with infectious disease in 2-3 weeks
please follow up with orthopedics in 2-4 weeks
Referrals:
Kieran Pat MD [Active] - in two to four weeks
Bryce Chandler DO [Active] - in two to three weeks
Martina Ortega MD [Family Provider] - in less than 1 week
Additional Discharge Medication Instructions: continue IV cefazolin for 6 weeks
Prescriptions:
New
cefazolin 10 gram Recon Soln
2 g IV Q8H 36 Days Qty: 126 0RF
Continued
cyanocobalamin (vitamin B-12) 1,000 MCG tablet
1,000 mcg PO DAILY
ascorbic acid (vitamin C) [Vitamin C] 500 MG tablet
500 mg PO DAILY
magnesium 250 MG tablet
250 mg PO DAILY
cholecalciferol (vitamin D3) 125 MCG tablet,disintegrating
125 mcg PO DAILY
finasteride 5 MG tablet
5 mg PO QPM
atorvastatin [Lipitor] 10 mg Tablet
10 mg PO DAILY
amlodipine 5 mg Tablet
2.5 mg PO BID
metoprolol succinate 25 MG tablet extended release 24 hr
12.5 mg PO DAILY
aspirin 81 MG tablet,chewable
81 mg PO Q48H
ipratropium bromide 42 mcg (0.06 %) [place],Non-Aerosol
2 spray INTRANASAL DAILYPRN PRN (Reason: allergies)
benzonatate 200 mg capsule
200 mg PO TIDPRN PRN (Reason: Cough)
Discharge Orders:
Discharge Patient (As Directed); Ordered 08/01/24
Ordered By: Joss Colvin
Discharge Date and Time
Discharge Date/Time: 08/01/24 15:18
Print Language: ARABIC

Documented by User: Chino Chin MD 08/02/24 00:29
Discharge Summary
Discharge Data
Date of Admission: 07/26/24
Date of Discharge: 08/02/24
Discharge Plan
-
Patient Disposition: Home (Routine Discharge)
Discharge Diagnosis/Procedures: Right knee septic arthritis
Condition: Good
Diet: Regular
Activity: As tolerated
Driving Restrictions: No driving for 24 hours
Bathing Restrictions: None
Other Services: PT and OT
Activity Restrictions/Additional Instructions:
please follow up with pcp within 1 week of discharge
please follow up with infectious disease in 2-3 weeks
please follow up with orthopedics in 2-4 weeks
Referrals:
Kieran Pat MD [Active] - in two to four weeks
Bryce Chandler DO [Active] - in two to three weeks
Martina Ortega MD [Family Provider] - in less than 1 week
Additional Discharge Medication Instructions: continue IV cefazolin for 6 weeks
Prescriptions:
New
cefazolin 10 gram Recon Soln
2 g IV Q8H 36 Days Qty: 126 0RF
Continued
cyanocobalamin (vitamin B-12) 1,000 MCG tablet
1,000 mcg PO DAILY
ascorbic acid (vitamin C) [Vitamin C] 500 MG tablet
500 mg PO DAILY
magnesium 250 MG tablet
250 mg PO DAILY
cholecalciferol (vitamin D3) 125 MCG tablet,disintegrating
125 mcg PO DAILY
finasteride 5 MG tablet
5 mg PO QPM
atorvastatin [Lipitor] 10 mg Tablet
10 mg PO DAILY
amlodipine 5 mg Tablet
2.5 mg PO BID
metoprolol succinate 25 MG tablet extended release 24 hr
12.5 mg PO DAILY
aspirin 81 MG tablet,chewable
81 mg PO Q48H
ipratropium bromide 42 mcg (0.06 %) [place],Non-Aerosol
2 spray INTRANASAL DAILYPRN PRN (Reason: allergies)
benzonatate 200 mg capsule
200 mg PO TIDPRN PRN (Reason: Cough)
Discharge Orders:
Discharge Patient (As Directed); Ordered 08/01/24
Ordered By: Joss Colvin
Discharge Date and Time
Discharge Date/Time: 08/01/24 15:18
Print Language: ARABIC
[2024-08-01 14:50] VITALS: BP 119/62
== END 2024-08-01 15:18 | disposition home health service (06) | DRG 549 ==
LOC: 4 EAST ACU 09:56
PROVIDERS: Hospitalist; Student in an Organized Health Care Education/Training Program; ADMITTING PHYSICIAN Family Medicine; CONSULT PHYSICIAN Internal Medicine Infectious Disease; CONSULT PHYSICIAN Specialist; EMERGENCY PHYSICIAN Emergency Medicine; FAMILY PHYSICIAN Internal Medicine
PROC: 02HV33Z Insertion of Infusion Device into Superior Vena Cava, Percutaneous Approach (ICD-10-PCS; 2024-07-30)
DX: M00.9 Pyogenic arthritis, unspecified (principal); E87.1 Hypo-osmolality and hyponatremia; R78.81 Bacteremia; Z87.891 Personal history of nicotine dependence; I11.9 Hypertensive heart disease without heart failure; N40.0 Benign prostatic hyperplasia without lower urinary tract symptoms; M10.9 Gout, unspecified; K74.60 Unspecified cirrhosis of liver; E86.1 Hypovolemia; Z28.21 Immunization not carried out because of patient refusal; E78.00 Pure hypercholesterolemia, unspecified
CPT/HCPCS: 20610; 71045; 73564; 80048; 80053; 80202; 81003; 82565; 82962; 83036; 83735; 84550; 85025; 85027; 85610; 85652; 86140; 86618; 87015; 87040; 87070; 87147; 87150; 87186; 87205; 89051; 89060; 93005; 93306; 96374; 97116; 97163; 99285

== ENCOUNTER 2024-08-03 14:54 | Emergency (ER) | payer OTHER, SELFPAY ==
[2024-08-03 14:56] VITALS: BP 141/73
--- NOTE | 2024-08-03 17:26 | ED.GENMED ---
History of Present Illness
General
Chief Complaint: Swelling
Time Seen by Provider: 08/03/24 15:51
History of Present Illness
History of Present Illness:
89-year-old male presents to the emergency department for evaluation of right lower extremity swelling. He denies any calf pain or knee pain at this time. He was recently mid to this hospital for sepsis with bacteremia secondary to a septic right
knee. He is currently on IV cefazolin via PICC line. Denies any right upper extremity discomfort or swelling. No history of DVT. Not currently on anticoagulants
Past History
Past History
ED Past Medical History: Hypercholesterolemia and Other (Gout)
Social History
Tobacco: Former smoker
Alcohol: None
Drug: None
Personal:
Living: with family
Review of Systems
Review of Systems
Allergies reviewed?: Yes
All Other Systems: ROS reviewed and negative except as documented in HPI and ROS
Phy Exam
Physical Exam
Physical Exam:
GEN: Well appearing, NAD, WDWN
HEENT: Oral mucosa moist, no scleral icterus
Cardiac: Regular rate
Lung: No respiratory distress, no tachypnea
MSK: No gross deformity or injuries. Right upper extremity PICC line site is clean and dry with no erythema. There is diffuse edema from the right knee down to the foot, no calf tenderness, no rigidity, no right knee effusion
Skin: Good color, no pallor or jaundice, no rashes
Neuro: AO x3, moves all extremities freely
Psych: Calm, cooperative
Scores
Heart Failure Risk
Heart Failure Risk Score: Not Applicable
Course
Orders/Labs/Results
Orders:
Orders
08/03/24 16:22
Venous Doppler Lwr Ext Rt [US Perip Venous LOWER Ext RT] Urgent
Comment:
Reason For Exam: RLE edema
Vital Signs
Initial and Last Documented VS:
Initial Vital Signs
Temp Pulse Resp BP Pulse Ox
98.2 F 91 16 141/73 99
08/03/24 14:56 08/03/24 14:56 08/03/24 14:56 08/03/24 14:56 08/03/24 14:56
Last Documented Vital Signs
Temp Pulse Resp BP Pulse Ox
98.2 F 91 16 141/73 99
08/03/24 14:56 08/03/24 14:56 08/03/24 14:56 08/03/24 14:56 08/03/24 14:56
MDM/Problems Addressed
MDM/Problems Addressed:
Ultrasound without DVT, there is a Vogel's cyst a likely a ruptured Vogel's cyst contributing to the swelling. Patient is clinically well and suitable for outpatient management
*Critical Care Note
Total Time (30-74mins, 75-104mins- exclusive of procedures): Not Applicable
ED Attending Note
-
Portions of this chart may have been created with voice recognition software.� Occasional wrong word or��sound alike� substitutions may have occurred due to the inherent limitations of voice recognition software.
Discharge Plan
Departure
Patient Disposition: Home (Routine Discharge)
Date of Disposition: 08/03/24
Time of Disposition: 17:26
Patient with high blood pressure during this ER visit?: No
Discharge Problem:
Ruptured cyst of right popliteal space
Instructions: Vogel's Cyst (DC)
Prescriptions:
No Action
cyanocobalamin (vitamin B-12) 1,000 MCG tablet
1,000 mcg PO DAILY
ascorbic acid (vitamin C) [Vitamin C] 500 MG tablet
500 mg PO DAILY
magnesium 250 MG tablet
250 mg PO DAILY
cholecalciferol (vitamin D3) 125 MCG tablet,disintegrating
125 mcg PO DAILY
finasteride 5 MG tablet
5 mg PO QPM
atorvastatin [Lipitor] 10 mg Tablet
10 mg PO DAILY
amlodipine 5 mg Tablet
2.5 mg PO BID
metoprolol succinate 25 MG tablet extended release 24 hr
12.5 mg PO DAILY
aspirin 81 MG tablet,chewable
81 mg PO Q48H
ipratropium bromide 42 mcg (0.06 %) [place],Non-Aerosol
2 spray INTRANASAL DAILYPRN PRN (Reason: allergies)
benzonatate 200 mg capsule
200 mg PO TIDPRN PRN (Reason: Cough)
cefazolin 10 gram Recon Soln
2 g IV Q8H 36 Days Qty: 126 0RF
Referrals:
Martina Ortega MD [Family Provider] -
Interventions
Interventions:
*Risk Screen - Suicide Last Done: 08/03/24 15:00
*General Assessment Last Done: 08/03/24 17:57
*Neglect/Abuse Screening Last Done: 08/03/24 15:00
*Nursing Disposition Last Done: 08/03/24 17:57
ED-Skin Assessment Last Done: 08/03/24 15:54
ED- Pulmonary Assessment Last Done: 08/03/24 15:54
ED- Cardiac Assessment Last Done: 08/03/24 15:54
Discharge Date and Time
Discharge Date/Time: 08/03/24 18:01
Print Language: PASHTO
== END 2024-08-03 18:01 | disposition home or self-care (01) ==
LOC: EMR 14:54
PROVIDERS: EMERGENCY PHYSICIAN Emergency Medicine; FAMILY PHYSICIAN Internal Medicine
DX: M71.21 Synovial cyst of popliteal space [Baker], right knee (principal); E78.00 Pure hypercholesterolemia, unspecified; Z87.891 Personal history of nicotine dependence
CPT/HCPCS: 99284; 93971

== ENCOUNTER → 2024-10-12 08:41 | Outpatient (REF) | payer OTHER, SELFPAY ==
[2024-10-12 12:27] LABS: % Basophils 0.9 % (0-2); % Eosinophils 4.1 % (0-6); % Immature Granulocytes 0.5 % (0-0.5); % Lymphocytes 17.6 % (20.5-51.1); % Monocytes 9.4 % (1.7-9.3); % Neutrophils 67.5 % (42.2-75.2); Absolute Basophils 0.1 10^3/uL (0-0.2); Absolute Eosinophils 0.3 10^3/uL (0-0.7); Absolute Lymphocytes 1.4 10^3/uL (1.2-3.4); Absolute Monocytes 0.8 10^3/uL (0.1-0.6); Absolute Neutrophils 5.4 10^3/uL (1.4-6.5); Hematocrit 38.5 % (39.0-52.0); Hemoglobin 12.7 g/dL (13.0-18.0); Mean Corpuscular Hgb 32.2 pg (27.0-31.0); Mean Corpuscular Volume 97.7 fL (80.0-94.0); Mean Platelet Volume 10.2 fL (7.4-10.4); Nucleated Red Blood Cells % 0 % (-); Platelet Count 158 10^3/uL (130-400); Red Blood Cell Count 3.94 10^6/uL (4.70-6.10); Red Cell Dist. Width 13.3 % (11.5-14.5)
[2024-10-12 12:33] LABS: Erythrocyte Sed Rate 28 mm/hour (0-20)
[2024-10-12 13:11] LABS: ALT (SGPT) 27 U/L (0-50); AST (SGOT) 34 U/L (17-59); Albumin 4.2 g/dl (3.5-5.0); Alkaline Phosphatase 107 U/L (38-126); Blood Urea Nitrogen 19 mg/dl (9-20); Calcium 9.8 mg/dl (8.4-10.2); Carbon Dioxide 26 mmol/L (22-30); Chloride 101 mmol/L (98-107); Glucose 92 mg/dl (70-99); Potassium 4.4 mmol/L (3.5-5.1); Sodium 136 mmol/L (135-145); Total Bilirubin 0.4 mg/dl (0.2-1.3); Total Protein 6.7 g/dl (6.3-8.2); Uric Acid 7.5 mg/dl (3.5-8.5); eGFR > 60.00
== END ==
LOC: HWLAB 08:41
PROVIDERS: ATTENDING PHYSICIAN Internal Medicine Rheumatology; FAMILY PHYSICIAN Internal Medicine
DX: D64.9 Anemia, unspecified (principal); M11.20 Other chondrocalcinosis, unspecified site; M17.0 Bilateral primary osteoarthritis of knee; M1A.09X0 Idiopathic chronic gout, multiple sites, without tophus (tophi); M79.675 Pain in left toe(s); Z51.81 Encounter for therapeutic drug level monitoring
CPT/HCPCS: 36415; 80053; 84550; 85025; 85652; 86140

== ENCOUNTER 2024-10-29 10:53 | Outpatient (RCR) | payer OTHER, SELFPAY | END 2024-10-29 23:59 | disposition home or self-care (01) | LOC: RPT 10:53 | PROVIDERS: ATTENDING PHYSICIAN Physician Assistant Surgical; FAMILY PHYSICIAN Internal Medicine | DX: M00.061 Staphylococcal arthritis, right knee (principal); M25.561 Pain in right knee; R26.89 Other abnormalities of gait and mobility; M62.81 Muscle weakness (generalized) | CPT/HCPCS: 97110; 97162; 97535 ==

== ENCOUNTER → 2024-11-29 13:32 | Outpatient (REF) | payer OTHER, SELFPAY | LOC: EMG 13:32 | PROVIDERS: ATTENDING PHYSICIAN Physical Medicine & Rehabilitation; FAMILY PHYSICIAN Internal Medicine | DX: M54.12 Radiculopathy, cervical region (principal); G56.03 Carpal tunnel syndrome, bilateral upper limbs | CPT/HCPCS: 95886; 95911 ==

== ENCOUNTER → 2024-12-09 13:45 | Outpatient (REF) | payer OTHER, SELFPAY | LOC: PAVMRI 13:45 | PROVIDERS: ATTENDING PHYSICIAN Physical Medicine & Rehabilitation; FAMILY PHYSICIAN Internal Medicine | DX: M54.12 Radiculopathy, cervical region (principal) | CPT/HCPCS: 72141 ==

== ENCOUNTER → 2024-12-20 08:21 | Outpatient (REF) | payer OTHER, SELFPAY ==
[2024-12-20 09:20] LABS: % Basophils 0.9 % (0-2); % Eosinophils 3.5 % (0-6); % Immature Granulocytes 0.9 % (0-0.5); % Monocytes 10.4 % (1.7-9.3); % Neutrophils 66.3 % (42.2-75.2); Absolute Basophils 0.1 10^3/uL (0-0.2); Absolute Eosinophils 0.3 10^3/uL (0-0.7); Absolute Immature Granulocytes 0.1 10^3/uL (0-0.05); Absolute Lymphocytes 1.4 10^3/uL (1.2-3.4); Absolute Monocytes 0.8 10^3/uL (0.1-0.6); Absolute Neutrophils 5.2 10^3/uL (1.4-6.5); Hematocrit 41.2 % (39.0-52.0); Hemoglobin 13.6 g/dL (13.0-18.0); Mean Corpuscular Hgb 31.6 pg (27.0-31.0); Mean Corpuscular Volume 95.8 fL (80.0-94.0); Mean Platelet Volume 9.1 fL (7.4-10.4); Nucleated Red Blood Cells % 0 % (-); Platelet Count 172 10^3/uL (130-400); Red Cell Dist. Width 14.5 % (11.5-14.5); White Blood Cell Count 7.9 10^3/uL (4.8-10.8)
[2024-12-20 09:32] LABS: Ammonia < 9 umol/L (9-30)
[2024-12-20 09:33] LABS: INR 1.07; PT 14.4 Sec (11.4-14.6)
[2024-12-20 09:34] LABS: APTT 31.5 Sec (23.4-35.0)
[2024-12-20 11:51] LABS: ALT (SGPT) 29 U/L (0-50); AST (SGOT) 23 U/L (17-59); Albumin 4.4 g/dl (3.5-5.0); Alkaline Phosphatase 118 U/L (38-126); Blood Urea Nitrogen 20 mg/dl (9-20); Carbon Dioxide 24 mmol/L (22-30); Chloride 101 mmol/L (98-107); Glucose 90 mg/dl (70-99); Potassium 4.3 mmol/L (3.5-5.1); Sodium 136 mmol/L (135-145); Total Bilirubin 0.6 mg/dl (0.2-1.3); Total Protein 6.8 g/dl (6.3-8.2); eGFR > 60.00
== END ==
LOC: REG 08:21
PROVIDERS: ATTENDING PHYSICIAN Internal Medicine Gastroenterology; FAMILY PHYSICIAN Internal Medicine; OTHER PHYSICIAN Internal Medicine Transplant Hepatology
DX: K74.60 Unspecified cirrhosis of liver (principal)
CPT/HCPCS: 36415; 80053; 82105; 82140; 85025; 85610; 85730

== ENCOUNTER → 2024-12-28 09:14 | Outpatient (REF) | payer OTHER, SELFPAY | LOC: HWRAD 09:14 | PROVIDERS: ATTENDING PHYSICIAN Internal Medicine Gastroenterology; FAMILY PHYSICIAN Internal Medicine; REFERRING PHYSICIAN Internal Medicine Transplant Hepatology | DX: K74.60 Unspecified cirrhosis of liver (principal) | CPT/HCPCS: 76700 ==

== ENCOUNTER → 2025-01-10 11:35 | Outpatient (REF) | payer OTHER, SELFPAY | LOC: PAVMRI 11:35 | PROVIDERS: ATTENDING PHYSICIAN Internal Medicine Transplant Hepatology; FAMILY PHYSICIAN Internal Medicine; REFERRING PHYSICIAN Internal Medicine Gastroenterology | DX: K74.60 Unspecified cirrhosis of liver (principal) | CPT/HCPCS: 74183; A9581 ==

== ENCOUNTER → 2025-02-14 14:37 | Outpatient (REF) | payer OTHER, SELFPAY | LOC: HWRCS 14:37 | PROVIDERS: ATTENDING PHYSICIAN Internal Medicine Cardiovascular Disease; FAMILY PHYSICIAN Internal Medicine | DX: I35.0 Nonrheumatic aortic (valve) stenosis (principal); I49.1 Atrial premature depolarization; I10 Essential (primary) hypertension; Z95.2 Presence of prosthetic heart valve | CPT/HCPCS: 93306 ==

== ENCOUNTER 2025-02-19 06:14 | Day surgery (SDC) | payer OTHER, SELFPAY ==
[2025-02-12 10:23] LABS: Hematocrit 35.3 % (39.0-52.0); Hemoglobin 12.1 g/dL (13.0-18.0); Mean Corp Hgb Conc. 34.3 g/dL (33.0-37.0); Mean Corpuscular Hgb 32.3 pg (27.0-31.0); Mean Corpuscular Volume 94.1 fL (80.0-94.0); Mean Platelet Volume 9.9 fL (7.4-10.4); Platelet Count 173 10^3/uL (130-400); Red Blood Cell Count 3.75 10^6/uL (4.70-6.10); Red Cell Dist. Width 13.8 % (11.5-14.5); White Blood Cell Count 7.9 10^3/uL (4.8-10.8)
[2025-02-12 12:11] LABS: Blood Urea Nitrogen 22 mg/dl (9-20); Carbon Dioxide 26 mmol/L (22-30); Chloride 108 mmol/L (98-107); Glucose 83 mg/dl (70-99); Potassium 4.6 mmol/L (3.5-5.1); Sodium 138 mmol/L (135-145); eGFR > 60.00
[2025-02-12 14:02] VITALS: BMI 21.5
--- NOTE | 2025-02-12 14:57 | PTCARENOTE ---
Patients 02/12 ECG abnormal- reviewed by Dr Ferrer- no additional interventions indicated
[2025-02-19] VITALS (7 sets, daily range): BP systolic 107–157; BP diastolic 47–72; BMI 21.5
[2025-02-19] MEDS: TYLENOL 1000 MG PO (11:30)
[2025-02-19] MEDS: CELEBREX 200 MG PO (11:30)
[2025-02-19] MEDS: NORMOSOL-R/PLASMALYTE-A 1000 IV (11:30)
== END 2025-02-19 15:00 | disposition home or self-care (01) ==
LOC: SDS 06:14
PROVIDERS: ATTENDING PHYSICIAN Orthopaedic Surgery; FAMILY PHYSICIAN Internal Medicine
DX: G56.22 Lesion of ulnar nerve, left upper limb (principal); G56.02 Carpal tunnel syndrome, left upper limb
CPT/HCPCS: 64718; 64721; 36415; 80048; 85027; 93005

== ENCOUNTER → 2025-03-06 08:18 | Outpatient (REF) | payer OTHER, SELFPAY ==
[2025-03-06 09:34] LABS: % Basophils 0.8 % (0-2); % Eosinophils 3.1 % (0-6); % Immature Granulocytes 0.4 % (0-0.5); % Lymphocytes 19.7 % (20.5-51.1); % Monocytes 8.5 % (1.7-9.3); % Neutrophils 67.5 % (42.2-75.2); Absolute Basophils 0.1 10^3/uL (0-0.2); Absolute Eosinophils 0.3 10^3/uL (0-0.7); Absolute Lymphocytes 1.6 10^3/uL (1.2-3.4); Absolute Monocytes 0.7 10^3/uL (0.1-0.6); Absolute Neutrophils 5.4 10^3/uL (1.4-6.5); Hematocrit 34.7 % (39.0-52.0); Hemoglobin 11.8 g/dL (13.0-18.0); Mean Corpuscular Hgb 31.7 pg (27.0-31.0); Mean Corpuscular Volume 93.3 fL (80.0-94.0); Mean Platelet Volume 9.6 fL (7.4-10.4); Nucleated Red Blood Cells % 0 % (-); Platelet Count 193 10^3/uL (130-400); Red Blood Cell Count 3.72 10^6/uL (4.70-6.10); Red Cell Dist. Width 13.6 % (11.5-14.5)
[2025-03-06 09:39] LABS: Erythrocyte Sed Rate 62 mm/hour (0-20)
[2025-03-06 10:54] LABS: ALT (SGPT) 27 U/L (0-50); AST (SGOT) 24 U/L (17-59); Albumin 4.2 g/dl (3.5-5.0); Alkaline Phosphatase 112 U/L (38-126); Blood Urea Nitrogen 24 mg/dl (9-20); Carbon Dioxide 24 mmol/L (22-30); Chloride 105 mmol/L (98-107); Glucose 90 mg/dl (70-99); HDL Cholesterol 52 mg/dl; LDL Cholesterol, Calculated 108 mg/dl; Potassium 4.4 mmol/L (3.5-5.1); Sodium 138 mmol/L (135-145); Total Bilirubin 0.6 mg/dl (0.2-1.3); Total Cholesterol 174 mg/dl (50-199); Total Protein 6.8 g/dl (6.3-8.2); Triglyceride 70 mg/dl (10-149); Very Low Density Lipoprotein 14 mg/dl (0-30); eGFR > 60.00
[2025-03-06 10:55] LABS: C-Reactive Protein < 5.00 mg/L (0.0-10.00)
[2025-03-06 11:30] LABS: Glycohemoglobin (HgbA1c) 5.6 % (4.0-5.6)
== END ==
LOC: HWLAB 08:18
PROVIDERS: ATTENDING PHYSICIAN Internal Medicine Rheumatology; FAMILY PHYSICIAN Internal Medicine; OTHER PHYSICIAN Internal Medicine Interventional Cardiology; REFERRING PHYSICIAN Internal Medicine Transplant Hepatology
DX: E78.5 Hyperlipidemia, unspecified (principal); R73.01 Impaired fasting glucose; D64.9 Anemia, unspecified; M11.20 Other chondrocalcinosis, unspecified site; M17.0 Bilateral primary osteoarthritis of knee; M1A.09X0 Idiopathic chronic gout, multiple sites, without tophus (tophi); M79.675 Pain in left toe(s); Z51.81 Encounter for therapeutic drug level monitoring
CPT/HCPCS: 36415; 80053; 80061; 83036; 84550; 85025; 85652; 86140

== ENCOUNTER → 2025-04-22 09:03 | Outpatient (REF) | payer OTHER, SELFPAY | LOC: RAD 09:03 | PROVIDERS: ATTENDING PHYSICIAN Otolaryngology; FAMILY PHYSICIAN Internal Medicine; OTHER PHYSICIAN Internal Medicine Gastroenterology | DX: K21.9 Gastro-esophageal reflux disease without esophagitis (principal); R13.14 Dysphagia, pharyngoesophageal phase | CPT/HCPCS: 74221 ==

== ENCOUNTER → 2025-05-10 08:39 | Outpatient (REF) | payer OTHER, SELFPAY ==
[2025-05-10 11:52] LABS: Hematocrit 34.9 % (39.0-52.0); Hemoglobin 11.9 g/dL (13.0-18.0); Mean Corp Hgb Conc. 34.1 g/dL (33.0-37.0); Mean Corpuscular Volume 93.8 fL (80.0-94.0); Nucleated Red Blood Cells % 0 % (-); Platelet Count 168 10^3/uL (130-400); Red Cell Dist. Width 13.7 % (11.5-14.5); Reticulocyte Count 1.3 % (0.4-2.8)
[2025-05-10 12:25] LABS: Iron 104 ug/dl (49-181)
[2025-05-10 12:36] LABS: Total Iron Binding Capacity 273 ug/dl (261-462)
[2025-05-10 15:21] LABS: PSA, Total - Diagnostic 0.08 ng/ml (0.0-4.0)
[2025-05-10 15:25] LABS: Ferritin 76.8 ng/ml (17.9-464.0)
[2025-05-10 15:56] LABS: Folate 16.0 ng/ml (2.76-20); Vitamin B12 > 1000 pg/ml (239-931)
== END ==
LOC: HWLAB 08:39
PROVIDERS: ATTENDING PHYSICIAN Specialist; FAMILY PHYSICIAN Internal Medicine; OTHER PHYSICIAN Pediatrics; REFERRING PHYSICIAN Internal Medicine Gastroenterology
DX: C61 Malignant neoplasm of prostate (principal); D64.9 Anemia, unspecified
CPT/HCPCS: 36415; 82607; 82728; 82746; 83540; 83550; 84153; 85025; 85045

== ENCOUNTER → 2025-06-06 09:09 | Outpatient (REF) | payer OTHER, SELFPAY ==
[2025-06-06 09:54] LABS: Hematocrit 35.9 % (39.0-52.0); Hemoglobin 12.1 g/dL (13.0-18.0); Mean Corp Hgb Conc. 33.7 g/dL (33.0-37.0); Mean Corpuscular Volume 92.8 fL (80.0-94.0); Nucleated Red Blood Cells % 0 % (-); Platelet Count 163 10^3/uL (130-400); Red Cell Dist. Width 13.7 % (11.5-14.5)
[2025-06-06 09:56] LABS: Ammonia < 9 umol/L (9-30)
[2025-06-06 09:59] LABS: ALT (SGPT) 18 U/L (0-50); AST (SGOT) 20 U/L (17-59); Albumin 4.3 g/dl (3.5-5.0); Alkaline Phosphatase 102 U/L (38-126); Blood Urea Nitrogen 19 mg/dl (9-20); Calcium 10.2 mg/dl (8.4-10.2); Carbon Dioxide 26 mmol/L (22-30); Chloride 103 mmol/L (98-107); Glucose 93 mg/dl (70-99); Potassium 4.5 mmol/L (3.5-5.1); Sodium 135 mmol/L (135-145); Total Protein 7.1 g/dl (6.3-8.2); eGFR > 60.00
[2025-06-06 10:03] LABS: INR 1.05; PT 14.2 Sec (11.4-14.6)
[2025-06-06 10:04] LABS: APTT 32.2 Sec (23.4-35.0)
[2025-06-06 18:28] LABS: AFP Male/Tumor Marker 1.15 ng/ml
== END ==
LOC: REG 09:09
PROVIDERS: ATTENDING PHYSICIAN Internal Medicine Gastroenterology; FAMILY PHYSICIAN Internal Medicine; REFERRING PHYSICIAN Internal Medicine Transplant Hepatology
DX: K74.60 Unspecified cirrhosis of liver (principal)
CPT/HCPCS: 36415; 80053; 82105; 82140; 85025; 85610; 85730

== ENCOUNTER → 2025-07-05 11:11 | Outpatient (REF) | payer OTHER, SELFPAY | LOC: HWRAD 11:11 | PROVIDERS: ATTENDING PHYSICIAN Internal Medicine Gastroenterology; FAMILY PHYSICIAN Internal Medicine; REFERRING PHYSICIAN Internal Medicine Transplant Hepatology | DX: K74.60 Unspecified cirrhosis of liver (principal) | CPT/HCPCS: 76700 ==

== ENCOUNTER → 2025-07-09 08:58 | Outpatient (REF) | payer OTHER, SELFPAY ==
[2025-07-09 12:40] LABS: Hematocrit 35.3 % (39.0-52.0); Hemoglobin 11.7 g/dL (13.0-18.0); Mean Corp Hgb Conc. 33.1 g/dL (33.0-37.0); Mean Corpuscular Volume 95.1 fL (80.0-94.0); Nucleated Red Blood Cells % 0 % (-); Platelet Count 179 10^3/uL (130-400); Red Cell Dist. Width 13.9 % (11.5-14.5)
[2025-07-09 13:08] LABS: Blood Urea Nitrogen 15 mg/dl (9-20); Calcium 9.8 mg/dl (8.4-10.2); Carbon Dioxide 28 mmol/L (22-30); Chloride 100 mmol/L (98-107); Glucose 110 mg/dl (70-99); Potassium 4.8 mmol/L (3.5-5.1); Sodium 134 mmol/L (135-145); eGFR > 60.00
== END ==
LOC: HWLAB 08:58
PROVIDERS: ATTENDING PHYSICIAN Orthopaedic Surgery; FAMILY PHYSICIAN Internal Medicine
DX: Z01.818 Encounter for other preprocedural examination (principal)
CPT/HCPCS: 36415; 80048; 85025

== ENCOUNTER 2025-07-30 10:16 | Inpatient (IN) | payer OTHER, SELFPAY ==
[2025-07-28] VITALS (10 sets, daily range): BP systolic 135–163; BP diastolic 58–89; BMI 21.3; BMI 21.6
[2025-07-28 16:14] LABS: Hematocrit 36.1 % (39.0-52.0); Hemoglobin 12.2 g/dL (13.0-18.0); Mean Corp Hgb Conc. 33.8 g/dL (33.0-37.0); Mean Corpuscular Volume 95.0 fL (80.0-94.0); Nucleated Red Blood Cells % 0 % (-); Platelet Count 173 10^3/uL (130-400); Red Cell Dist. Width 14.2 % (11.5-14.5)
[2025-07-28 16:24] LABS: INR 1.04; PT 13.9 Sec (11.4-14.6)
[2025-07-28 16:25] LABS: APTT 30.4 Sec (23.4-35.0)
[2025-07-28 16:43] LABS: ALT (SGPT) 47 U/L (0-50); AST (SGOT) 36 U/L (17-59); Albumin 4.2 g/dl (3.5-5.0); Alkaline Phosphatase 110 U/L (38-126); Blood Urea Nitrogen 16 mg/dl (9-20); Calcium 10.0 mg/dl (8.4-10.2); Carbon Dioxide 27 mmol/L (22-30); Chloride 102 mmol/L (98-107); Estimated Creatinine Clearance 50 ml/min; Glucose 105 mg/dl (70-99); Potassium 4.8 mmol/L (3.5-5.1); Sodium 132 mmol/L (135-145); Total Protein 7.1 g/dl (6.3-8.2); eGFR > 60.00
[2025-07-28 16:53] LABS: Urine Character Clear (Clear)
[2025-07-28 16:55] LABS: Urine Red Blood Cell 0-2 /HPF (0-2); Urine Squamous Cell 0-2 /LPF (Few); Urine White Cell 0-2 /HPF (0-5)
[2025-07-28 16:58] LABS: Troponin I 0.179 ng/ml
[2025-07-28] MEDS: LOW STRENGTH ASPIRIN 81 MG PO (18:19)
--- NOTE | 2025-07-28 19:13 | ED.GENMED ---
History of Present Illness
General
Chief Complaint: Visual Problem
Time Seen by Provider: 07/28/25 17:39
History of Present Illness
History of Present Illness:
89-year-old male with history of bovine aortic valve replacement, hypertension, hyperlipidemia, carpal tunnel status post carpal tunnel repair 2 days ago to the right upper extremity presenting for double vision. Patient reports around 10 AM this
morning he had a bowel movement and started to feel woozy and lightheaded. He reports that he was straining to have a bowel movement, constipated after anesthesia from recent surgery about an hour later, started to have double vision. The double
vision is still present. Denies issues with his vision in the past. Denies any weakness, lightheadedness, numbness or tingling to his extremities. Denies any chest pain or difficulty breathing. Denies any issues with the surgery. The double
vision is only present when he has both of his eyes open. Denies any prior history of stroke. Denies additional acute medical complaint
Past History
Past History
ED Past Medical History: Hypercholesterolemia and Other (Gout)
Social History
Tobacco: Former smoker
Alcohol: None
Drug: None
Personal:
Living: with family
Phy Exam
Physical Exam
Physical Exam:
General: Well-appearing, no clinical signs of dehydration, nontoxic and in no acute distress
HEENT: protecting airway, left eye palsy, unable to look past midline to the right. Peripheral dillard are intact
Neck: appears supple
CV: Normal heart rate, regular rhythm
Resp: No accessory muscle use, no increased work of breathing, lungs clear to auscultation bilaterally
Abd: No distention
Extremities: No deformities, no swelling
Neuro: alert, no focal neurologic deficit
: deferred
Rectal: deferred
Psych: Normal affect
Skin: Intact
Scores
NIH Stroke Score
Level of Consciousness: 0 - Alert
LOC Questions: 0-Answers both correctly
LOC Commands: 0-Performs both correctly
Best Horizontal Gaze: 1-Partial gaze palsy
Visual Dillard: 0=Normal, no visual loss
Facial Palsy: 0=Normal, symmetrical
Motor - Right Arm: 0=No drift 10 seconds
Motor - Left Arm: 0=No drift 10 seconds
Motor - Right Le-No drift 5 seconds
Motor - Left Le-No drift 5 seconds
Limb Ataxia: 0-Absent
Sensation: 0-Normal
Best Language: 0-No aphasia
Dysarthria: 0-Normal
Extinction and Inattention: 0-No abnormality
NIH Total Score:: 1
Course
Orders/Labs/Results
Orders:
Orders
07/28/25 15:52
EKG [Electrocardiogram (*1)] Urgent
Reason for Study: Vertigo / Dizzy
EKG- Treatment ONCE
07/28/25 16:04
Complete Blood Count/With Diff Urgent
Comprehensive Metabolic Panel Urgent
INR [Prothrombin Time] Urgent
PTT Urgent
Troponin I Urgent
07/28/25 16:29
CT Head & Neck Angio W/wo IV Urgent
Comment:
Reason For Exam: double vision
07/28/25 16:47
Urinalysis Reflex To Culture Urgent
Date Specimen was Collected: 07/28/25
Time Specimen was Collected: 16:41
Urine Microscopic Reflex Cult Urgent
Urine Culture Urgent
ELIOT Source: U
Specimen Description:
Obtained by: Random
Date Specimen was Collected: 07/28/25
Time Specimen was Collected: 16:41
07/28/25 18:14
Aspirin Chewable [Low Strength Aspirin] 81 mg PO NOW STA
07/28/25 19:24
Electrocardiogram (*1) Urgent
Reason for Study: Abnormal EKG
EKG- Treatment ONCE
07/28/25 19:34
Troponin I Urgent
07/28/25 21:59
Admit/Transfer Patient As Directed
Co-Sign Provider:
Level of Care: Observation services
Assign to:: Telemetry
Physician / Group: Lang/Hospitalist
Diagnosis: Double Vision
Reason for Telemetry: CVA/TIA
Date to Stop Telemetry: 07/31/25
Time to Stop Telemetry: 11:00
Reason for Hospitalization: Double Vision
PRN Pain Medication Management As Directed
May give lesser potent ordered pain med per pt: Yes
preference::
Protocol:: Medication orders for pain may be administered in a
manner that supports deferring to patient preference
when the pt is:
- Requesting an ordered lesser potent pain medication.
Least to most potent pain medications are defined
as: acetaminophen < NSAID < tramadol < opioids
(morphine, oxycodone, hydromorphone).
- Requesting a lesser dose of the same medication IF
ORDERED.
- Requesting a less intrusive route of administration
if both routes are prescribed by the provider (PO <
IV).
07/28/25 22:00
Code Status As Directed
Resuscitation Status: Full Code
07/31/25 11:00
DC Protocol for Telemetry ONCE
Abnormal Lab Results
07/28/25 07/28/25 07/28/25
16:04 16:47 19:34
WBC 10.9 H 10^3/uL
(4.8-10.8)
RBC 3.80 L 10^6/uL
(4.70-6.10)
Hgb 12.2 L g/dL
(13.0-18.0)
Hct 36.1 L %
(39.0-52.0)
MCV 95.0 H fL
(80.0-94.0)
MCH 32.1 H pg
(27.0-31.0)
Abs Immat Gran (auto) 0.1 H 10^3/uL
(0-0.05)
Absolute Neuts (auto) 8.4 H 10^3/uL
(1.4-6.5)
Absolute Monos (auto) 1.0 H 10^3/uL
(0.1-0.6)
Neutrophils % 76.7 H %
(42.2-75.2)
Lymphocytes % 11.7 L %
(20.5-51.1)
Sodium 132 L mmol/L
(135-145)
Glucose 105 H mg/dl
(70-99)
Troponin I 0.179 H* ng/ml 0.175 H* ng/ml
Leukocyte Esterase Rfl 1+ A
(Negative)
07/28/25 16:04
07/28/25 16:04
Vital Signs
Initial and Last Documented VS:
Initial Vital Signs
Temp Pulse Resp BP Pulse Ox
97.8 F 64 16 151/76 99
07/28/25 15:54 07/28/25 15:54 07/28/25 15:54 07/28/25 15:54 07/28/25 15:54
Last Documented Vital Signs
Temp Pulse Resp BP Pulse Ox
97.8 F 68 16 147/64 96
07/28/25 15:54 07/28/25 22:30 07/28/25 22:30 07/28/25 22:00 07/28/25 22:30
MDM/Problems Addressed
MDM/Problems Addressed:
89-year-old male with history of aortic stenosis status post bovine valve replacement presenting to the emergency department for double vision. Vital signs on arrival are normal.
On exam, patient resting comfortably, no acute distress or discomfort. Patient's peripheral dillard are intact, however does have obvious left eye palsy, cannot look towards the right past midline, suspected 3rd nerve palsy. Concern for acute
neurologic process. Notes that symptoms started after he was straining to have a bowel movement. Intracranial hemorrhage is a consideration. Patient symptoms started this morning, so by time of arrival to the hospital, not TNK candidate. Per
nursing protocol, ordered for CT and CT angio. No additional acute neurologic findings on exam with intact strength and sensation to all extremities. EKG obtained on arrival, nonischemic. Labs sent by nurse, will assess for any electrolyte
abnormality.
18:40 - Patient's labs are remarkable for elevated troponin. On requestioning, patient again declines any chest pain. CT and CTA are negative. Embolic source of his symptoms is possible, possibly cardiac in etiology. Did discuss with neurology,
recommending aspirin and MRI. Patient otherwise hemodynamically stable. Plan for admission for abnormal neurologic exam, elevated troponin, continue troponin trending and cardiac/neurologic consultation
*Pulse Oximetry
SaO2: 99
Oxygen Mode of Delivery: Room air
Patient hypoxic: no
*EKG
Interpreted by ED Provider?: Yes
EKG Intrepretation Date: 07/28/25
EKG Intrepretation Time: 19:29
Interpretation: abnormal
Comparison EKG: no changes
Heart Rate: 66
Rate: normal
Rhythm: sinus
[place]: normal axis
Interval: normal interval
QRS Pattern: left bundle branch block
Ischemia: no ischemia
*Critical Care Note
Total Time (30-74mins, 75-104mins- exclusive of procedures): Not Applicable
ED Attending Note
-
Portions of this chart may have been created with voice recognition software.� Occasional wrong word or��sound alike� substitutions may have occurred due to the inherent limitations of voice recognition software.
Discharge Plan
Departure
Patient Disposition: Admit
Date of Disposition: 07/28/25
Time of Disposition: 19:33
Presentation/result/management discussed w/ accepting MD/DO: Hospitalist
Patient with high blood pressure during this ER visit?: No
Condition: Fair
Discharge Problem:
Ocular palsy of left eye, Double vision
Interventions
Interventions:
*Risk Screen - Suicide Last Done: 07/28/25 16:15
*General Assessment Last Done: 07/28/25 16:15
*Neglect/Abuse Screening Last Done: 07/28/25 16:15
*ED- Fall Risk Assessment Last Done: 07/28/25 16:15
*ED COVID-19 Vaccine History Last Done: 07/28/25 16:15
*ED Influenza Vaccine History Last Done: 07/28/25 16:15
ED- Neurological Assessment Last Done: 07/28/25 16:15
ED-EENT Assessment Last Done: 07/28/25 16:17
[2025-07-28 20:22] LABS: Troponin I 0.175 ng/ml
--- NOTE | 2025-07-28 20:59 | HPS.HSE ---
Family Physician
-
Family Physician: Martina Ortega
Chief Complaint
-
Double vision
History of Present Illness
The patient is an 89-year-old gentleman with past medical history significant for carpal tunnel status post carpal tunnel repair 2 days ago, bovine aortic valve replacement, hypertension, hyperlipidemia, prostate cancer, presents to the emergency
department secondary to double vision that began this morning at around 10 AM after having a bowel movement when he started to feel lightheaded and dizzy. He knows he was straining to have a bowel movement due to constipation after anesthesia from
his recent surgery. Shortly thereafter he started having double vision which was still present on arrival to the emergency department. His double vision is both horizontal and vertical. He notes that for the past several weeks he had the feeling
of the sensation of his left eyelid not opening the same as his right eyelid. In the emergency department he is noted to have a left lateral gaze to the left eye only. His pupils are intact bilaterally and equal. He denies any other motor
weakness nor slurred speech. Denies any loss of consciousness,, no headache, no fevers no chills, no chest pain or shortness of breath, no palpitations. Of note the double vision is only present when he has both eyes open and disappears when he
closes 1 eye.
Treatment in the emergency department includes aspirin 81 mg
Labs remarkable for elevated troponin. Patient denies chest pain. He has history of left bundle branch block.
CTA of the head and neck are negative for acute pathology.
The ED provider discussed the patient with neurology who recommended aspirin and an MRI of the brain.
Medical History
Past Medical History
Past Medical History: Reports CAD (Mid LAD 50% stenosis, mid RCA-cath 11/07/2020), Cancer (Prostate s/p IMRT, skin melanoma s/p Mohs surgery, basal cell carcinoma s/p resection, facial squamous cell carcinoma, s/p Mohs surgery coronary artery
disease), HTN, Hypercholesterolemia, Valvular Disease and Other (Left bundle branch block)
Additional Past Medical History:
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
Past Surgical History: Reports Cardiac ([facility] 02/16/2023), Orthopedic (Meniscal tear s/p arthroscopy, left shoulder tenderness to), Urological (Prostate Ca-IMRT (2005)) and Other (Carpal tunnel surgery)
Social History
Tobacco: Former Smoker (Quit 1963)
Alcohol: Former (Sober 2 years)
Drug: None
Personal:
Living: With Family
Employment: Retired
Family History
Family History: Not pertinent
Allergies / Home Medications
Allergies reflects when Allergies were last updated in [facility].
Home Medications with original date entered in [facility]
Allergy/Medication List:
Allergies
Allergy/AdvReac Type Severity Reaction Status Date / Time
Penicillins Allergy hand Verified 07/28/25 15:58
swelled,
rash
dutasteride AdvReac Unknown abdominal Verified 07/28/25 15:58
pain
tamsulosin AdvReac Unknown abdominal Verified 07/28/25 15:58
pain
Home Medications
ascorbic acid (vitamin C) 500 mg tablet (Vitamin C) 500 mg PO DAILY Supplement 11/07/20
cyanocobalamin (vitamin B-12) 1,000 mcg tablet 1,000 mcg PO DAILY Supplement 11/07/20
finasteride 5 mg tablet 5 mg PO QPM Urinary Issue 12/17/20
atorvastatin 10 mg tablet (Lipitor) 10 mg PO DAILY High Cholesterol 09/24/22
metoprolol succinate 25 mg tablet,extended release 24 hr 12.5 mg PO QPM Blood Pressure 09/24/22
aspirin 81 mg chewable tablet 81 mg PO Daily Blood Clot Prevention/Tx 01/21/23
magnesium 200 mg tablet 200 mg PO DAILY 02/13/25
acetaminophen 325 mg tablet (Tylenol) 650 mg PO DAILYPRN PRN mild pain 07/28/25
amlodipine 2.5 mg tablet (Norvasc) 2.5 mg PO DAILY Blood Pressure 07/28/25
cholecalciferol (vitamin D3) 25 mcg (1,000 unit) tablet (Vitamin D3) 25 mcg PO DAILY Supplement 07/28/25
Review of Systems
-
A 12 point ROS was completed and negative except as noted: Yes
Physical Exam
Vital Signs
Vital Signs
Temp Pulse Resp BP Pulse Ox
97.8 F 66 15 147/64 99
07/28/25 15:54 07/28/25 20:00 07/28/25 20:00 07/28/25 20:00 07/28/25 20:00
Physical Exam
General: Well Developed, Well Nourished, No Apparent Distress, Comfortable and Conversant
HEENT: NormoCephalic, Anicteric and Other (left eye turned outward, vertical gaze, unable to follow inward, mild left eyelid ptosis compared to the right eye)
Respiratory: Clear
Cardiac: S1/S2 and Regular Rhythm
GI: Soft, Non Tender and Non Distended
Musculoskeletal: No Clubbing, No Cyanosis and No Edema
Skin: Warm and Dry
Neuro: AO x 3 and Other (left eye CN as per above, palsy, leftward gaze of left eye, mild left eye ptosis, normal pupillary reflexes bilateral symmetrical )
Psych: Calm
Laboratory Results
-
07/28/25 16:04
07/28/25 16:04
Laboratory Results
PT 13.9 Sec (11.4-14.6) 07/28/25 16:04
INR 1.04 07/28/25 16:04
APTT 30.4 Sec (23.4-35.0) 07/28/25 16:04
Total Bilirubin 0.5 mg/dl (0.2-1.3) 07/28/25 16:04
AST 36 U/L (17-59) 07/28/25 16:04
ALT 47 U/L (0-50) 07/28/25 16:04
Alkaline Phosphatase 110 U/L (38-126) 07/28/25 16:04
Troponin I 0.175 ng/ml H* 07/28/25 19:34
Data Reviewed
-
CT Scan: Report Reviewed by me (See below)
Impression/Plan
-
IMPRESSION:
# Double vision, concern for TIA vs CVA vs left eye cranial nerve III palsy as patient with several weeks of left eyelid heaviness, mild left eyelid ptosis, and left eye with left lateral eye position, with both vertical and horizontal diplopia;
normal non-dilated pupils with normal pupillary reflexes b/l.
CTA of the head and neck negative for acute pathology
CT of the Head without acute intracranial abnormality.
CTA of the Neck with nonhemodynamically significant atherosclerotic changes of the carotid arterial system bilaterally. No findings to suggest internal carotid artery or vertebral artery dissection bilaterally.
CTA of Head without significant proximal arterial stenosis or vessel cut off bilaterally
-Admit OBS to telemetry monitoring, to rule out any neurological disorders causing symptoms, and will check TSH with review med list
-Neuro consultation appreciated, discuss any further evaluation required based on likely CN palsy as etiology of diplopia.
-Neuro checks, Brain MRI, continue home aspirin daily
-TSH
#Status post carpel tunnel surgery Tuesday at [facility]
-stable
#HTN, essential
-Cont Metoprolol & amlodipine
# Troponin elevation without evidence for acute coronary syndrome, troponin flat at 0.179 and 0.175, no EKG changes, LBBB is chronic
- Admit to telemetry monitoring
- Repeat 1 more troponin
# Mild hyponatremia
repeat in morning
# TAVR, hx for severe
DVT proph-Lovenox
Full Code
[2025-07-29] VITALS (9 sets, daily range): BP systolic 117–149; BP diastolic 54–74; PULSE 68–70; O2SAT 99
[2025-07-29] MEDS: TOPROL XL 12.5 MG PO ×2 (00:05→17:23)
[2025-07-29] MEDS: PROSCAR 5 MG PO ×2 (00:05→17:23)
[2025-07-29] MEDS: TYLENOL 650 MG PO (06:13)
[2025-07-29 07:18] LABS: Troponin I 0.140 ng/ml
[2025-07-29 08:18] LABS: HDL Cholesterol 61 mg/dl; LDL Cholesterol, Calculated 109 mg/dl; Magnesium 1.9 mg/dl (1.6-2.3); Very Low Density Lipoprotein 13 mg/dl (0-30)
[2025-07-29] MEDS: NORVASC 2.5 MG PO (08:33)
[2025-07-29] MEDS: LIPITOR 10 MG PO (08:35)
[2025-07-29] MEDS: LOW STRENGTH ASPIRIN 81 MG PO (08:35)
[2025-07-29] MEDS: MAGNESIUM OXIDE PO (08:40)
[2025-07-29] MEDS: VITAMIN B-12 PO (08:40)
[2025-07-29] MEDS: VITAMIN D3 (cholecalciferol) PO (08:40)
[2025-07-29] MEDS: VITAMIN C PO (08:40)
--- NOTE | 2025-07-29 09:18 | CON.NEURO4 ---
Addendum entered and electronically signed by Etienne Pires MD 07/29/25 20:40:
I have seen and examined the patient today along with the nurse practitioner Emeli Cameron. I agree with the assessment and plan of the nurse practitioner Emeli Cameron. The following is my addendum.
The patient is an 89 years old male who presented to the hospital on 07/28/2025 with a complaint of diplopia. The patient complains of diplopia on looking towards the left and the right side. He says that he noticed drooping of the left eyelid one
month ago. He denies any headache, speech difficulty, swallowing difficulty, numbness, and weakness. He is taking aspirin 81mg daily for cardiac purposes.
Neurologic examination:
The patient is alert and oriented x 3,
Speech is clear,
The cranial nerve examination shows that the pupils are reactive to light. There is left eye ptosis and the patient is unable to adduct the left eye that raises the concern of the left 3rd cranial nerve palsy,
The motor strength is grossly 5/5 bilaterally in the upper and lower extremities,
The sensations are grossly intact.
There is no limb ataxia seen.
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 Cannot exclude a possible brainstem stroke causing the 3rd cranial nerve palsy.
The plan is to keep the patient on aspirin 81 mg daily, will get MRI of the brain and also get workup for myasthenia gravis including acetylcholine receptor antibodies and MuSK antibodies.
Will follow.
Original Note:
Consultation - Neurology 4
-
CONSULTING PHYSICIAN: Etienne Pires MD
REFERRING PHYSICIAN: Hospitalists/Dr. Croft
DICTATED BY: BILLY Espinal
DATE/TIME OF REQUEST: 07/28/25
DATE/TIME OF CONSULTATION: 07/29/25
Reason for Consultation: Diplopia
History of Present Illness:
This is an 89-year-old right-handed male who has presented to the hospital on 07/28/25 with report of diplopia. Patient underwent uncomplicated LUE cubital and carpal tunnel release three days ago on 07/26/25. Yesterday morning (07/28/25) around
1000 he was on the toilet straining to have a bowel movement when he started to feel 'woozy' and lightheaded. He checked his blood pressure and reports it was high around 170/60. About an hour later he suddenly developed side by side diplopia,
prompting him to call 911. CTA head/neck was obtained on arrival and is negative for any acute abnormalities. He was not a candidate for TNK/IAT due to low NIHSS, no LVO. Patient reports that his diplopia has been ongoing. When he closes one eye or
the other it resolved, but his left eye vision seems mildly blurry compared to his right eye. He notes that for the past month, every morning he has had to use his fingers to open his left eyelid because it has been drooping. He denies any headache,
speech/swallow difficulty, numbness, and weakness. He is taking aspirin 81mg daily for cardiac purposes.
Past Medical History: HTN, HLD, CAD, prostate cancer, neck melanoma s/p mohs surgery, basal carcinoma, squamous cell carcinoma, gout
Surgical History: TAVR, cardiac cath, b/l cubital and carpal tunnel release, inguinal hernia repair, b/l cataract extraction, R L4-L5 TFESI, cystoscope, Mohs surgery, L knee arthroscopy
Family History: Reviewed and noncontributory.
Social History: Former smoker. Former alcohol, sober 2 years. 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
Allergies: Penicillins, tamsulosin, dutasteride.
Home Medications: See below.
Review of Symptoms:
Patient denies any fever, headache, chest pain, shortness of breath, GI or symptoms.
�Per the HPI.�All systems are reviewed negative except above.
Physical Exam:
The patient is afebrile, abdomen is nondistended, breathing is unlabored, skin is warm and dry, no edema.
NIH Stroke Scale:
I performed the NIH stroke scale on the patient on 07/29/25 at 0915. The patient scored 2 points on the NIH stroke scale assessment, which were assigned as follows: See below.
Neurologic Examination:
The patient is awake, alert and oriented x 3. He is able to follow commands and answer questions appropriately. There is no aphasia or dysarthria. On cranial nerve assessment, pupils are 3 mm bilateral, round and reactive to light and
accommodation. There is a 2+ left eye exotropia. Visual tijerina are full, patient endorses slightly blurry vision left eye. Extraocular movements are intact in the right eye, there is a left eye CN III palsy. There is a left eye ptosis. Hearing is
diminished bilaterally to normal conversation volume. Tongue palate and uvula are midline. Sternocleidomastoid strengths are full bilaterally. Motor strengths are 5/5 left upper (RUE in sling, distal strength 5/5) and lower extremities on medical
research [place] scale. There is no drift (VIRGIL RUE) or involuntary movement noted. There was no extinction noted on double simultaneous stimulation. Coordination is intact by finger to nose LUE (VIRGIL RUE).
Lab Results: See below.
Neuro Imaging:
1. CTA head/neck 07/28/25: CT of the Head without acute intracranial abnormality. CTA of the Neck with nonhemodynamically significant atherosclerotic changes of the carotid arterial system bilaterally. No findings to suggest internal carotid artery
or vertebral artery dissection bilaterally. CTA of Head without significant proximal arterial stenosis or vessel cut off bilaterally.
Differentials for the patient's presentation include:
1. Left eye CN III palsy, diplopia, and ptosis; concern for myasthenia gravis producing symptoms given one month report of left eyelid drooping, cannot exclude possible stroke producing symptoms.
Patient has the following risk factors for their symptoms: One month of left ptosis, HTN, age
Recommendations:
-Continue aspirin 81mg daily.
-MRI brain noncontrast pending.
-Acetylcholine receptor antibodies and MUSK pending.
-Goal normotension.
-LDL goal <70. LDL is 109. Home atorvastatin increased from 10mg to 40mg daily.
-Goal normoglycemia, hbA1c is
-Checking blood work for metabolic abnormalities.
-NIHSS and neurological checks per unit guidelines.
-Provide patient with a stroke education packet.
-PT/OT/ST evaluations.
-DVT prophylaxis.
Discussed patient care with: Dr. Pires, the patient
Vital Signs and Labs
-
Vital Signs and Labs:
Vital Signs
Temp Pulse Resp BP Pulse Ox
98.3 F 69 17 126/63 98
07/29/25 07:00 07/29/25 08:33 07/29/25 07:00 07/29/25 08:33 07/29/25 07:00
Lab Results
07/28/25 16:04
07/28/25 16:04
PT 13.9 Sec (11.4-14.6) 07/28/25 16:04
INR 1.04 07/28/25 16:04
APTT 30.4 Sec (23.4-35.0) 07/28/25 16:04
Sodium 132 mmol/L (135-145) L 07/28/25 16:04
Potassium 4.8 mmol/L (3.5-5.1) 07/28/25 16:04
BUN 16 mg/dl (9-20) 07/28/25 16:04
Glucose 105 mg/dl (70-99) H 07/28/25 16:04
Calcium 10.0 mg/dl (8.4-10.2) 07/28/25 16:04
LDL Cholesterol, Calc 109 mg/dl 07/29/25 06:36
Medications
-
Active Medications
Generic Name Dose Route Start Last Admin
Trade Name Freq PRN Reason Stop Dose Admin
Acetaminophen 650 mg 07/28/25 23:20
Acetaminophen 650 Mg Rectal Suppository RECTAL 08/25/25 23:19
Q4HPRN PRN
KEE, mild pain, or temp >100.4F
Acetaminophen 650 mg 07/28/25 23:20 07/29/25 06:13
Acetaminophen 325 Mg Tablet PO 08/25/25 23:19 650 mg
Q4HPRN PRN Administration
KEE, mild pain, or temp >100.4F
Amlodipine Besylate 2.5 mg 07/29/25 08:00 07/29/25 08:33
Amlodipine 2.5 Mg Tablet PO 08/26/25 07:59 2.5 mg
DAILY ALVA Administration
Ascorbic Acid 500 mg 07/29/25 08:00 07/29/25 08:40
Ascorbic Acid 500 Mg Tablet PO 08/26/25 07:59 Not Given
DAILY ALVA
Aspirin 81 mg 07/29/25 08:00 07/29/25 08:35
Aspirin 81 Mg Chewable Tablet PO 08/26/25 07:59 81 mg
Daily ALVA Administration
Atorvastatin Calcium 10 mg 07/29/25 08:00 07/29/25 08:35
Atorvastatin (Lipitor) 10 Mg Tablet PO 08/26/25 07:59 10 mg
DAILY ALVA Administration
Cholecalciferol 25 mcg 07/29/25 08:00 07/29/25 08:40
Cholecalciferol (Vitamin D3) 25 Mcg Tablet (1,000 Units) PO 08/26/25 07:59 Not Given
DAILY ALVA
Cyanocobalamin 1,000 mcg 07/29/25 08:00 07/29/25 08:40
Cyanocobalamin (Vitamin B-12) 500 Mcg Tablet PO 08/26/25 07:59 Not Given
DAILY ALVA
Enoxaparin Sodium 40 mg 07/29/25 18:00
Enoxaparin Sodium 40 Mg/0.4 Ml Syringe SC 08/26/25 17:59
QPM ALVA
Finasteride 5 mg 07/28/25 23:20 07/29/25 00:05
Finasteride 5 Mg Tablet PO 08/25/25 23:19 5 mg
QPM ALVA Administration
Magnesium Oxide 200 mg 07/29/25 08:00 07/29/25 08:40
Magnesium Oxide 400 Mg Tablet PO 08/26/25 07:59 Not Given
DAILY ALVA
Metoprolol Succinate 12.5 mg 07/28/25 23:20 07/29/25 00:05
Metoprolol 25 Mg Extended Release Tablet PO 08/25/25 23:19 12.5 mg
QPM ALVA Administration
Home Medications
�Medication �Instructions �Recorded
ascorbic acid (vitamin C) 500 mg 500 mg PO DAILY Supplement 11/07/20
tablet (Vitamin C)
cyanocobalamin (vitamin B-12) 1,000 mcg PO DAILY Supplement 11/07/20
1,000 mcg tablet
finasteride 5 mg tablet 5 mg PO QPM Urinary Issue 12/17/20
atorvastatin 10 mg tablet (Lipitor) 10 mg PO DAILY High Cholesterol 09/24/22
metoprolol succinate 25 mg 12.5 mg PO QPM Blood Pressure 09/24/22
tablet,extended release 24 hr
aspirin 81 mg chewable tablet 81 mg PO Daily Blood Clot 01/21/23
Prevention/Tx
magnesium 200 mg tablet 200 mg PO DAILY 02/13/25
acetaminophen 325 mg tablet 650 mg PO DAILYPRN PRN mild pain 07/28/25
(Tylenol)
amlodipine 2.5 mg tablet (Norvasc) 2.5 mg PO DAILY Blood Pressure 07/28/25
cholecalciferol (vitamin D3) 25 25 mcg PO DAILY Supplement 07/28/25
mcg (1,000 unit) tablet (Vitamin
D3)
NIH Stroke Score
Subsequent NIH Scale
Date of Subsequent NIH Scale: 07/29/25
Time of Subsequent NIH Scale: 09:15
NIH Stroke Score
Level of Consciousness: 0 - Alert
LOC Questions: 0-Answers both correctly
LOC Commands: 0-Performs both correctly
Best Horizontal Gaze: 1-Partial gaze palsy
Visual [place]: 0=Normal, no visual loss
Facial Palsy: 1=Minor paralysis
Motor - Right Arm: UN=Amputation/jointfusion
Motor - Left Arm: 0=No drift 10 seconds
Motor - Right Le-No drift 5 seconds
Motor - Left Le-No drift 5 seconds
Limb Ataxia: 0-Absent
Sensation: 0-Normal
Best Language: 0-No aphasia
Dysarthria: 0-Normal
Extinction and Inattention: 0-No abnormality
NIH Total Score:: 2
Modified Ranjit (mRS) Score
Modified Norton Scale (mRS): Slight disability. Able to look after own affairs.
Score: 2
Alteplase Contraindication
Inclusion and Exclusion criteria reviewed: Yes
--- NOTE | 2025-07-29 09:40 | W.PN.HOSP.TC ---
Today's Communication/Plan
-
Brain MRI
Neuro consult
PT/OT/ST - FEES study ordered
Assessment / Plan
Assessment / Plan
IMPRESSION:
Double vision
Left Eye Cranial III Palsy
-CTA of the head and neck negative for acute pathology
-CT of the Head without acute intracranial abnormality.
-Admit OBS to telemetry monitoring
-Brain MRI ordered
-Neuro consultation
-Neuro checks
-CVT RN asa 81mg PO QD
#Status post carpel tunnel surgery Tuesday at [facility]
-stable
#HTN, essential
-Cont Metoprolol & amlodipine
# Troponin elevation without evidence for acute coronary syndrome, troponin flat at 0.179 and 0.175, no EKG changes, LBBB is chronic
- Admit to telemetry monitoring
- Troponin continuing to trend down - no chest pain or other ACS symptoms
# Mild hyponatremia
Na 132
# TAVR, hx for severe
DVT proph-Lovenox
Full Code
Anticipated Discharge: Within 24 hours
Subjective/Interval History
-
Date of Service: July 29, 2025
left eye with outward deviation
Objective Data
-
Vital Signs:
Vital Signs
Temp Pulse Resp BP Pulse Ox
98.3 F 69 17 126/63 98
07/29/25 07:00 07/29/25 08:33 07/29/25 07:00 07/29/25 08:33 07/29/25 07:00
Review of Systems
-
History Source: Patient
All other systems: Reviewed and negative
Physical Exam
-
General: Well Developed, Well Nourished, No Apparent Distress and Comfortable
HEENT: Other (left eye with outward deviation )
Respiratory: Clear to Auscultation
Cardiac: Regular Rhythm and S1/S2
GI: Soft, Nontender, Nondistended and Normal Bowel Sounds
Musculoskeletal: No Edema
Skin: Warm and Dry
Neuro: Awake, Alert, Oriented and AO x 3
Psych: Calm and Intact Judgement/Insight
Data Reviewed
-
Diagnostic Radiology: Report Reviewed by me
Labs: Labs Reviewed by me
--- NOTE | 2025-07-29 11:39 | CM ---
Patient seen at bedside
OBS status-ESCOBAR form explained & signed. In chart
IA completed
Dx: double vision
Neuro consult, MRI ordered
PMH: carpal tunnel status post carpal tunnel repair 2 days ago, bovine aortic valve replacement, hypertension, hyperlipidemia, prostate cancer
Patient lives alone at [facility] (dtr staying with patient now since his surgery on Tuesday), elevator access
PLOF: Independent, uses a cane outside
DME: Cane, shower chair, rolling walker
PT/OT/ST to eval, npo FEES study
PCP: Martina Ortega
Pharmacy: [facility], [address], [place]
PLAN; TBD, await therapy evals
--- NOTE | 2025-07-29 13:01 | PTOTSP ---
Dysphagia Evaluation:
Pt presents w/ acute (CVA symptoms, report change in vocal quality) and chronic (hx of difficulty w/ P.O. medications, GERD). Given observed throat clearing w/ thins, it is recommended that instrumental swallow study (FEES) completed to objectively
rule out aspiration. However, pt is on room air and has no hx of dysphagia/aspiration/PNAs, so continuation of Regulars, Thins diet is recommended at this time.
Recommendations:
1. Regulars, Thins
2. Medications as best tolerated (trial mixed w/ puree if difficulty w/ liquid wash)
3. Partial assistance w/ meal set up given visual difficulties.
4. Strategies: Single sips/small bites, sitting upright w/ meals, alternating liquid washes, reflux precautions
5. FEES assessment to objectively rule out aspiration given CVA symptoms.
[2025-07-29] MEDS: LOVENOX 40 MG SC (17:23)
[2025-07-30 03:10] VITALS: BP 133/64
[2025-07-30 07:14] VITALS: BP 145/73
[2025-07-30] MEDS: VITAMIN B-12 1000 MCG PO (08:09)
[2025-07-30] MEDS: LIPITOR 40 MG PO (08:10)
[2025-07-30] MEDS: VITAMIN D3 (cholecalciferol) 25 MCG PO (08:10)
[2025-07-30] MEDS: MAGNESIUM OXIDE 200 MG PO (08:10)
[2025-07-30] MEDS: NORVASC 2.5 MG PO (08:10)
[2025-07-30] MEDS: COLACE 100 MG PO (08:10)
[2025-07-30] MEDS: VITAMIN C 500 MG PO (08:11)
[2025-07-30] MEDS: LOW STRENGTH ASPIRIN 81 MG PO (08:11)
--- NOTE | 2025-07-30 09:19 | W.PN.HOSP.TC ---
Addendum entered and electronically signed by Narcisa Salas MD 07/31/25 07:48:
Non-ischemic myocardial injury in setting of CVA and elevated BP
-no chest pain; TTE results below:
SUMMARY
1. Grossly normal left ventricular size, wall thickness, and function in limited views, ejection fraction 55 to 60%.
2. Mitral valve is poorly seen, probably with mild mitral regurgitation and normal left atrium.
3. 23 mm Garay HIRA transcatheter aortic valve, peak/gradient 11/6 mmHg without obvious aortic regurgitation.
4. Grossly normal right ventricular size and function, could not determine pulmonary artery systolic pressure.
5. An echo in January 2025 showed an EF of 55 to 60% with a normal right ventricle, mild mitral regurgitation, a 23 mm Garay HIRA transcatheter aortic valve with peak/mean gradient 11/8 mmHg without aortic regurgitation, mild mitral regurgitation,
and normal pulmonary artery pressure.
Original Note:
Today's Communication/Plan
-
TTE ordered
FEES ordered
expect DC post above studies
Assessment / Plan
Assessment / Plan
Brain MRI
IMPRESSION:
1. 3 mm ACUTE ISCHEMIC INFARCT in the LEFT POSTERIOR PONTINE TEGMENTUM.
2. 1.1 cm linear shaped ACUTE ISCHEMIC INFARCT in the MEDULLA.
3. 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
4. Mild white matter leukoaraiosis in the frontal and parietal lobes.
5. Mild diffuse cerebral and cerebellar volume loss.
6. 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
Head/Neck CTA
IMPRESSION:
CT of the Head without acute intracranial abnormality.
CTA of the Neck with nonhemodynamically significant atherosclerotic changes of the carotid arterial system bilaterally. No findings to suggest internal carotid artery or vertebral artery dissection bilaterally.
CTA of Head without significant proximal arterial stenosis or vessel cut off bilaterally
IMPRESSION:
Acute ischemic infarct in left posterior pontine tegmentum and medulla
Double vision
Left Eye Cranial III Palsy
-Brain MRI results
-Neuro consultation
-Neuro checks
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
-higher dose statin
#Status post carpel tunnel surgery Tuesday at [facility]
-stable
#HTN, essential
-Cont Metoprolol & amlodipine
# Troponin elevation without evidence for acute coronary syndrome, troponin flat at 0.179 and 0.175, no EKG changes, LBBB is chronic
- Admit to telemetry monitoring
- Troponin continuing to trend down - no chest pain or other ACS symptoms
# Mild hyponatremia
Na 132
# TAVR, hx for severe
DVT proph-Lovenox
Full Code
Anticipated Discharge: Within 24 hours
Subjective/Interval History
-
Date of Service: July 30, 2025
he is feeling well and wants to go home
less double vision today
Objective Data
-
Vital Signs:
Vital Signs
Temp Pulse Resp BP Pulse Ox
97.8 F 81 18 145/73 99
07/30/25 07:14 07/30/25 08:10 07/30/25 07:14 07/30/25 08:10 07/30/25 07:14
I&O
07/29/25 07/30/25 07/31/25
06:59 06:59 06:59
Intake Total 1080 / 1080
Balance 1080 / 1080
Review of Systems
-
History Source: Patient
All other systems: Reviewed and negative
Physical Exam
-
General: Well Developed, Well Nourished, No Apparent Distress and Comfortable
HEENT: Other (left eye with less outward deviation; most noticeable when looking to right )
Respiratory: Clear to Auscultation
Cardiac: Regular Rhythm and S1/S2
GI: Soft, Nontender, Nondistended and Normal Bowel Sounds
Musculoskeletal: No Edema
Skin: Warm and Dry
Neuro: Awake, Alert, Oriented and AO x 3
Psych: Calm and Intact Judgement/Insight
Data Reviewed
-
Diagnostic Radiology: Report Reviewed by me
Labs: Labs Reviewed by me
[2025-07-30] MEDS: PLAVIX 75 MG PO (09:57)
[2025-07-30 11:45] VITALS: BP 151/71
--- NOTE | 2025-07-30 14:14 | W.DS.TRANS ---
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
-
Discharge Instructions:
Discharge Diagnosis/Procedures acute ischemic stroke resulting in diplopia (
double vision)
Diet Low Cholesterol
Activity As tolerated
Driving Restrictions No driving
Bathing Restrictions None
Other Services PT,OT
Instructions:
Stand-Alone Forms:
Changes to Home Medications: Yes
Discharge Medications:
DC Medications w/original date entered in [employer]
ascorbic acid (vitamin C) 500 mg tablet (Vitamin C) 500 mg PO DAILY Supplement 11/07/20
cyanocobalamin (vitamin B-12) 1,000 mcg tablet 1,000 mcg PO DAILY Supplement 11/07/20
finasteride 5 mg tablet 5 mg PO QPM Urinary Issue 12/17/20
metoprolol succinate 25 mg tablet,extended release 24 hr 12.5 mg PO QPM Blood Pressure 09/24/22
aspirin 81 mg chewable tablet 81 mg PO Daily Blood Clot Prevention/Tx 01/21/23
magnesium 200 mg tablet 200 mg PO DAILY 02/13/25
acetaminophen 325 mg tablet (Tylenol) 650 mg PO DAILYPRN PRN mild pain 07/28/25
amlodipine 2.5 mg tablet (Norvasc) 2.5 mg PO DAILY Blood Pressure 07/28/25
cholecalciferol (vitamin D3) 25 mcg (1,000 unit) tablet (Vitamin D3) 25 mcg PO DAILY Supplement 07/28/25
atorvastatin 40 mg tablet 40 mg PO DAILY #30 tabs 07/30/25
clopidogrel 75 mg tablet 75 mg PO DAILY #20 tabs 07/30/25
Home Medication Changes
Take Plavix with aspirin x 20 more days then take Aspirin daily indefinitely
Your Lipitor (Atorvastatin) dosing is increased from 10mg to 40mg
Pending Results: No
--- NOTE | 2025-07-30 14:16 | W.DCSUMMARY ---
Addendum entered and electronically signed by Narcisa Salas MD 07/31/25 07:48:
TTE results:
SUMMARY
1. Grossly normal left ventricular size, wall thickness, and function in limited views, ejection fraction 55 to 60%.
2. Mitral valve is poorly seen, probably with mild mitral regurgitation and normal left atrium.
3. 23 mm Garay HIRA transcatheter aortic valve, peak/gradient 11/6 mmHg without obvious aortic regurgitation.
4. Grossly normal right ventricular size and function, could not determine pulmonary artery systolic pressure.
5. An echo in January 2025 showed an EF of 55 to 60% with a normal right ventricle, mild mitral regurgitation, a 23 mm Garay HIRA transcatheter aortic valve with peak/mean gradient 11/8 mmHg without aortic regurgitation, mild mitral regurgitation,
and normal pulmonary artery pressure.
Original Note:
Discharge Summary
Discharge Data
Date of Admission: 07/30/25
Date of Discharge: 07/30/25
-
Pending Results: No
Hospital Course
Discharging Physician : Dr. Narcisa Salas
Disposition : Home with outpatient therapy
Primary care physician : Dr. Martina Ortega
Principal Discharge diagnosis : Acute Ischemic Stroke resulting in Diplopia
Hospital Course :
Mr. Rolando Darling is a 89 yo man with hx bovine aortic valve replacement, essential HTN, HLD, prostate CA, recent carpal tunnel repair presents to the ER with double vision. Triage vitals stable, labs with mild leukocytosis. Exam with CN III
palsy. Head CT without acute bleed, CTA Head/Neck without severe stenosis. He was admitted to medicine with Neurology consulting. Brain MRI with 3mm infarct in left posterior pontine tegmentum, and 1.1cm acute ischemic infarct in medulla. He was
started on Plavix x 21 days with aspirin. 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 No atrial fibrillation seen on monitor, he will be set up with a halter monitor on discharge. Patient's deficits were improving on day of discharge with
decrease in double vision.
He is recommended for outpatient PT/OT/ST. (He was eager for discharge and did not want to be evaluated for acute rehab). He's had symptoms of dysphagia and FEES performed, recommended regular diet with thin liquids by cup (no straw) and
outpatient follow up.
Time spent on discharge was 35 minutes.
Important imaging findings :
Brain MRI
IMPRESSION:
1. 3 mm ACUTE ISCHEMIC INFARCT in the LEFT POSTERIOR PONTINE TEGMENTUM.
2. 1.1 cm linear shaped ACUTE ISCHEMIC INFARCT in the MEDULLA.
3. 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
4. Mild white matter leukoaraiosis in the frontal and parietal lobes.
5. Mild diffuse cerebral and cerebellar volume loss.
6. 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
Head/Neck CTA
IMPRESSION:
CT of the Head without acute intracranial abnormality.
CTA of the Neck with nonhemodynamically significant atherosclerotic changes of the carotid arterial system bilaterally. No findings to suggest internal carotid artery or vertebral artery dissection bilaterally.
CTA of Head without significant proximal arterial stenosis or vessel cut off bilaterally
Procedure findings :
Discharge Plan
-
Patient Disposition: Home (Routine Discharge)
Discharge Diagnosis/Procedures: acute ischemic stroke resulting in diplopia (double vision)
Diet: Low Cholesterol
Activity: As tolerated
Driving Restrictions: No driving
Bathing Restrictions: None
Other Services: PT and OT
Referrals:
Carrie Orozco CRNP [[employer] [facility], Neurology] - in four to six weeks
Edward Navarrete MD [Active, Cardiology] - 07/31/25 2:00 pm
Referral Note: You are scheduled to have a 14-day heart monitor placed at Dr. Navarrete's office in the [place] on 07/31/2025 at 2 PM. Heart monitor is to look for any abnormal heart rhythms that can cause blood clots to form in the heart. If you
need to reschedule, please call [phone].
Martina Ortega MD [[facility], Internal Medicine] - in less than 1 week
Additional Discharge Medication Instructions: Take Plavix with aspirin x 20 more days then take Aspirin daily indefinitely
Your Lipitor (Atorvastatin) dosing is increased from 10mg to 40mg
You are set up for a monitor car operator to confirm you do not have an arrhythmia (afib) that can increase risk for stroke.
Please follow up with outpatient physical and occupational therapy.
Prescriptions:
New
atorvastatin 40 mg Tablet
40 mg PO DAILY Qty: 30 0RF
clopidogrel 75 mg Tablet
75 mg PO DAILY Qty: 20 0RF
Continued
cyanocobalamin (vitamin B-12) 1,000 MCG tablet
1,000 mcg PO DAILY
ascorbic acid (vitamin C) [Vitamin C] 500 MG tablet
500 mg PO DAILY
finasteride 5 MG tablet
5 mg PO QPM
metoprolol succinate 25 MG tablet extended release 24 hr
12.5 mg PO QPM
aspirin 81 MG tablet,chewable
81 mg PO Daily
magnesium 200 mg Tablet
200 mg PO DAILY
acetaminophen [Tylenol] 325 mg Tablet
650 mg PO DAILYPRN PRN (Reason: mild pain)
amlodipine [Norvasc] 2.5 mg Tablet
2.5 mg PO DAILY
cholecalciferol (vitamin D3) [Vitamin D3] 25 mcg (1,000 unit) Tablet
25 mcg PO DAILY
Discontinued
atorvastatin [Lipitor] 10 mg Tablet
10 mg PO DAILY
Discharge Orders:
Discharge Patient (As Directed); Ordered 07/30/25
Ordered By: Narcisa Salas
Discharge Date and Time
Print Language: MONEGASQUE
--- NOTE | 2025-07-30 14:33 | CM ---
Patient seen at bedside with daughter
PT rec acute rehab
patient declines acute rehab, would like outpatient rehab
scripts for outpatient PT/OT/ST given to patient
daughter will transport to outpatient rehab
IMM explained & signed. In chart
PLAN: home with outpatient PT/OT/ST, scripts given
daughter to transport
[2025-07-30 14:39] VITALS: BP 143/64
--- NOTE | 2025-07-30 15:08 | PN.CDI ---
CDI
- -
CDI:
Physician Documentation Request
Admit Date: 07/30/25 10:16
Dear Doctor Maritza,
Please review the following and provide your response in the progress notes.
Clinical Indicators:
PN, 07/30
# Troponin elevation without evidence for acute coronary syndrome,
#...troponin flat at 0.179 and 0.175, no EKG changes,
#...LBBB is chronic
#- Troponin continuing to trend down - no chest pain or other ACS symptoms
Laboratory Tests
07/28/25 07/28/25 07/29/25
16:04 19:34 06:36
Troponin I 0.179 H* 0.175 H* 0.140 H*
Based on the above and your clinical assessment, please clarify the appropriate diagnosis, if significant, that supports the above abnormalities and additional evaluation, monitoring and/or treatment rendered:
Non-ischemic myocardial injury
Abnormal lab values, clinically insignificant
Other(please specify)
Use of terms such as suspected, likely, concern for, or probable (associated with a specific diagnosis that is being evaluated, monitored, or treated as if it exists) are acceptable and can be coded in the inpatient setting, when documented at the
time of discharge.
Thank you,
Karla Ridley RN BSN CCDS
CDI Specialist
Please contact via tiger text
Please use your independent medical judgment in providing your response.
--- NOTE | 2025-07-30 16:07 | W.PN.NEURO.1 ---
Addendum entered and electronically signed by Etienne Pires MD 07/30/25 21:23:
I have seen and examined the patient today on 07/30/2025. I also discussed the patient's assessment and the management plan with the nurse practitioner Emeli Cameron and I agree with her assessment and management plan as given below. The
following is my addendum.
The patient is an 89 years old male who presented to the hospital on 07/28/2025 with a complaint of diplopia. The patient complained of diplopia on looking towards the left and the right side. He says that he noticed drooping of the left eyelid
one month ago.
Today the patient is doing very well and he denies diplopia both on the left and the right sided gaze. The patient today is able to adduct his left eye which he could not do yesterday and also the ptosis on left side has decreased today. The MRI
of the brain showed a 3 mm ACUTE ISCHEMIC INFARCT in the LEFT POSTERIOR PONTINE TEGMENTUM and 1.1 cm linear shaped ACUTE ISCHEMIC INFARCT in the MEDULLA.
Neurologic examination:
The patient is alert and oriented x 3,
Speech is clear,
The cranial nerve examination shows that the pupils are reactive to light. There is mild left eye ptosis and the extraocular movements in the left eye are almost normal.
The motor strength is grossly 5/5 bilaterally in the upper and lower extremities,
The sensations are grossly intact.
There is no limb ataxia seen.
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 The patient is doing well today and he denies diplopia in both the left and the right sided gaze. The patient is going to be on
aspirin Plavix and atorvastatin.
Workup for myasthenia gravis including acetylcholine receptor antibodies and MuSK antibodies is pending.
Will sign off. Please call if you have any question.
Original Note:
Documented by User: Emeli Cameron NP 07/30/25 16:16
Today's Communication / Plan
-
.
Neuro Assessment/Plan
Assessment
The patient is an 89 year old male who presented to the hospital on 07/28/2025 with a complaint of diplopia. The patient complains of diplopia on looking towards the left and the right side. He says that he noticed drooping of the left eyelid one
month ago. He denies any headache, speech difficulty, swallowing difficulty, numbness, and weakness. He is taking aspirin 81mg daily for cardiac purposes.
-CTA head/neck 07/28/25: CT of the Head without acute intracranial abnormality. CTA of the Neck with nonhemodynamically significant atherosclerotic changes of the carotid arterial system bilaterally. No findings to suggest internal carotid artery or
vertebral artery dissection bilaterally. CTA of Head without significant proximal arterial stenosis or vessel cut off bilaterally.
-MRI brain 07/30/25: 3 mm ACUTE ISCHEMIC INFARCT in the LEFT POSTERIOR PONTINE TEGMENTUM. 1.1 cm linear shaped ACUTE ISCHEMIC INFARCT in the MEDULLA. 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 Mild white matter leukoaraiosis
in the frontal and parietal lobes. Mild diffuse cerebral and cerebellar volume loss. 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
I. Left eye CN III palsy, diplopia, and ptosis mostly, symptoms mostly resolved now; MRI brain demonstrates acute left pontine and medulla ischemic infarcts that correlate with patient's symptoms. Etiology of stroke is likely small vessel disease.
Plan
-Continue aspirin 81mg daily. Adding clopidogrel 75mg for 21 days. Consideration for switching from aspirin to clopidogrel monotherapy after 21 days as this event occurred on aspirin.
-Acetylcholine receptor antibodies and MUSK pending.
-Goal normotension.
-LDL goal <70. LDL is 109. Home atorvastatin increased from 10mg to 40mg daily.
-Goal normoglycemia, hbA1c is 5.6.
-NIHSS and neurological checks per unit guidelines.
-Provide patient with a stroke education packet.
-PT/OT/ST evaluations.
-DVT prophylaxis.
-Follow-up with Neurology as an outpatient.
Subjective/Objective
Subjective Data
Date of Service: July 30, 2025
No acute events overnight. Patient reports that his diplopia has resolved today.
Objective Data
Vital Signs
Temp Pulse Resp BP Pulse Ox
98.1 F 75 17 143/64 97
07/30/25 14:39 07/30/25 14:39 07/30/25 14:39 07/30/25 14:39 07/30/25 14:39
Lab Results
07/28/25 16:04
07/28/25 16:04
PT 13.9 Sec (11.4-14.6) 07/28/25 16:04
INR 1.04 07/28/25 16:04
APTT 30.4 Sec (23.4-35.0) 07/28/25 16:04
Sodium 132 mmol/L (135-145) L 07/28/25 16:04
Potassium 4.8 mmol/L (3.5-5.1) 07/28/25 16:04
BUN 16 mg/dl (9-20) 07/28/25 16:04
Glucose 105 mg/dl (70-99) H 07/28/25 16:04
Calcium 10.0 mg/dl (8.4-10.2) 07/28/25 16:04
LDL Cholesterol, Calc 109 mg/dl 07/29/25 06:36
Patient Allergies
Penicillins Allergy (Verified 07/28/25 15:58)
hand swelled, rash
dutasteride Adverse Reaction (Unknown, Verified 07/28/25 15:58)
abdominal pain
tamsulosin Adverse Reaction (Unknown, Verified 07/28/25 15:58)
abdominal pain
LDL Level: >70, statin ordered
Review of Systems
-
History Source: Patient
EENT: Negative Blurry Vision, Decreased Vision or Swallowing Difficulty
Respiratory: Negative Cough or Trouble Breathing
Cardiac: Negative Chest Pain or Palpitations
Abdomen/GI: Negative Nausea
Neuro: Negative Dizzy, Headache, Weakness, Numbness, Ataxia, Tremors or Speech Problem
Physical Exam
-
General: Well Developed, Well Nourished and No Apparent Distress
Eyes: PERRLA; Negative No Ptosis (very slight left ptosis, improved)
HEENT: Normocephalic and Atraumatic
Neck: Full Range of Motion
Respiratory: No Dyspnea
GI: Non-distended
Extremities: No Clubbing, No Cyanosis and No Edema
Psych: Unremarkable
Extended Neurological Exam
Mood & Affect: Mood Unremarkable and Affect Unremarkable
Attention Span & Concentration: Awake, Alert and Interactive
Memory: Unremarkable and Able to Recall
Tremor: Hand Tremor Absent and Head Tremor Absent
Involuntary Movement: None
Speech: Quality Unremarkable, Quantity Unremarkable and Rate of Production Unremarkable
Cranial Nerve II: Left Eye: Pupillary Reactivity Unremarkable, Pupillary Size Unremarkable and Visual [place] Intact
Cranial Nerve II: Right Eye: Pupillary Reactivity Unremarkable, Pupillary Size Unremarkable and Visual [place] Intact
Cranial Nerves III, IV, : Extraocular Movement: Ptosis on Left (very slight) and Reduced (very slight left eye adduction restriction remains)
Cranial Nerve VIII: Hearing: Unremarkable Hearing to Normal Conversational Volume
Muscle Strength, Overall: Spontaneously Moves
Modified Steuben Score (MRS)
-
Modified Steuben Scale (mRS): No significant disability. Able to carry out usual activities.
Score: 1
Data Reviewed
-
CT-A: Report Reviewed and Image Reviewed
MRI Head: Report Reviewed and Image Reviewed
Labs: Report Reviewed
Lipid Profile: Report Reviewed
HgbA1C: Report Reviewed
Reviewed with: Physician and Patient
Medications
-
Home Medications
�Medication �Instructions �Recorded
ascorbic acid (vitamin C) 500 mg 500 mg PO DAILY Supplement 11/07/20
tablet (Vitamin C)
cyanocobalamin (vitamin B-12) 1,000 mcg PO DAILY Supplement 11/07/20
1,000 mcg tablet
finasteride 5 mg tablet 5 mg PO QPM Urinary Issue 12/17/20
metoprolol succinate 25 mg 12.5 mg PO QPM Blood Pressure 09/24/22
tablet,extended release 24 hr
aspirin 81 mg chewable tablet 81 mg PO Daily Blood Clot 01/21/23
Prevention/Tx
magnesium 200 mg tablet 200 mg PO DAILY 02/13/25
acetaminophen 325 mg tablet 650 mg PO DAILYPRN PRN mild pain 07/28/25
(Tylenol)
amlodipine 2.5 mg tablet (Norvasc) 2.5 mg PO DAILY Blood Pressure 07/28/25
cholecalciferol (vitamin D3) 25 25 mcg PO DAILY Supplement 07/28/25
mcg (1,000 unit) tablet (Vitamin
D3)
atorvastatin 40 mg tablet 40 mg PO DAILY #30 tabs 07/30/25
clopidogrel 75 mg tablet 75 mg PO DAILY #20 tabs 07/30/25

Documented by User: Eitenne Pires MD 07/30/25 17:44
Modified Steuben Score (MRS)
-
Score: 1
[2025-07-31 22:29] LABS: MuSK IgG Ab CBA IFA, Serum <1:10 (<1:10)
== END 2025-07-30 15:07 | disposition home or self-care (01) | DRG 65 ==
LOC: 3 WEST ACU 10:16
PROVIDERS: Emergency Medicine; Registered Nurse Critical Care Medicine; ADMITTING PHYSICIAN Internal Medicine; ATTENDING PHYSICIAN Student in an Organized Health Care Education/Training Program; EMERGENCY PHYSICIAN Student in an Organized Health Care Education/Training Program; FAMILY PHYSICIAN Internal Medicine; OTHER PHYSICIAN Psychiatry & Neurology Neurology
DX: I63.9 Cerebral infarction, unspecified (principal); E87.1 Hypo-osmolality and hyponatremia; I5A Non-ischemic myocardial injury (non-traumatic); G95.20 Unspecified cord compression; H49.00 Third [oculomotor] nerve palsy, unspecified eye; I10 Essential (primary) hypertension; M47.812 Spondylosis without myelopathy or radiculopathy, cervical region; Z85.46 Personal history of malignant neoplasm of prostate; Z95.3 Presence of xenogenic heart valve; E78.00 Pure hypercholesterolemia, unspecified; Z87.891 Personal history of nicotine dependence; Z88.0 Allergy status to penicillin; Z79.82 Long term (current) use of aspirin; Z98.42 Cataract extraction status, left eye; Z85.820 Personal history of malignant melanoma of skin; H02.402 Unspecified ptosis of left eyelid; I25.10 Atherosclerotic heart disease of native coronary artery without angina pectoris
CPT/HCPCS: 70496; 70498; 70551; 80053; 80061; 81003; 81015; 83735; 84443; 84484; 85025; 85610; 85730; 86041; 86366; 87086; 92610; 92612; 93005; 93308; 93321; 93325; 97163; 97167; 99285; Q9967

== ENCOUNTER 2025-08-09 04:41 | Observation (INO) | payer OTHER, SELFPAY ==
[2025-08-08 17:43] VITALS: BP 156/76; BMI 24.2
[2025-08-08] MEDS: COCAINE 4% TOPICAL SOLUTION 4 ML TOPICAL (20:15)
[2025-08-08 22:45] VITALS: BP 145/74
--- NOTE | 2025-08-08 22:51 | ED.GENMED ---
History of Present Illness
<Bryce Case DO - Last Filed: 08/09/25 19:03>
General
Chief Complaint: Nose Bleed
Source: patient
Time Seen by Provider: 08/08/25 19:35
History of Present Illness
History of Present Illness:
89-year-old male presents to the emergency room complaint of epistaxis. Patient states that he has been having bleeding from primarily his right nare since July 30. Patient was hospitalized here at [facility] for a stroke. He was discharged
on Plavix. While he was here he had a endoscope to evaluate the function of his vocal cords. Patient felt bleeding immediately after this procedure and has been having it intermittently since then. Today the bleed became quite severe. He has
been able to get it to stop.
Past History
<Bryce Case DO - Last Filed: 08/09/25 19:03>
Past History
ED Past Medical History: Hypercholesterolemia and Other (Gout)
Social History
Tobacco: Former smoker
Alcohol: None
Drug: None
Personal:
Living: with family
Phy Exam
<Bryce Case DO - Last Filed: 08/09/25 19:03>
Physical Exam
Physical Exam:
General: Awake, Alert, Oriented X3. No acute distress.
Vitals: unremarkable
Head: Atraumatic
Eyes: Pupils equal, EOMI
Nose: Fairly copious bleeding from the right nare.
Throat: Airway intact, no exudates
Neck: Trachea midline
Neuro: Nonfocal
Skin: Warm, dry, no rash
Extremities: pulses equal b/l, no edema
Course
<DO Zoë Cardenas Last Filed: 08/09/25 19:03>
Orders/Labs/Results
Orders:
Orders
08/08/25 19:45
Cocaine [Cocaine 4% Topical Solution] 4 ml TOPICAL NOW STA
08/08/25 23:05
Acetaminophen [Tylenol] 1,000 mg PO NOW STA
08/08/25 23:23
Type+Screen Urgent
Basic Metabolic Panel Urgent
Complete Blood Count/With Diff Urgent
08/09/25 04:29
Admit/Transfer Patient As Directed
Co-Sign Provider:
Level of Care: Observation services
Assign to:: Medical/Surgical
Physician / Group: Frances
Diagnosis: epistaxis
08/09/25 04:30
PRN Pain Medication Management As Directed
May give lesser potent ordered pain med per pt: Yes
preference::
Protocol:: Medication orders for pain may be administered in a
manner that supports deferring to patient preference
when the pt is:
- Requesting an ordered lesser potent pain medication.
Least to most potent pain medications are defined
as: acetaminophen < NSAID < tramadol < opioids
(morphine, oxycodone, hydromorphone).
- Requesting a lesser dose of the same medication IF
ORDERED.
- Requesting a less intrusive route of administration
if both routes are prescribed by the provider (PO <
IV).
08/09/25 04:33
Code Status As Directed
Resuscitation Status: Full Code
08/09/25 04:39
0.9% Sodium Chloride 500 ml [Nss] 500 ml IV BOLUS
08/09/25 05:27
Acetaminophen [Tylenol] 650 mg PO Q4HPRN PRN
Bisacodyl [Dulcolax] 10 mg RECTAL [id number] PRN
Docusate W/Senna [Senokot-S] 1 tablet PO BIDPRN PRN
Ondansetron Injectable [Zofran] 4 mg IV Q6HPRN PRN
Polyethylene Glycol Powder [Miralax] 17 grams PO DAILYPRN PRN
08/09/25 05:27
ENT CONSULT Routine
Consulting Provider: Michael Mejias
Was physician already notified: Yes
Activity As Directed
Activity Level: With Assistance
Orthostatic Vital Signs As Directed
Orthostatic VS Frequency: Daily
Pneumatic Compression Sleeves As Directed
Type: Knee high
Vital Signs As Directed
Frequency: Per unit guidelines
DX Deep Vein Thrombosis Video Routine
08/09/25 05:51
Basic Metabolic Panel IN AM
Complete Blood Count/No Diff IN AM
Osmolality, Random Urine Routine
Date Specimen was Collected: 08/09/25
Time Specimen was Collected: 05:49
Urine Sodium Routine
Date Specimen was Collected: 08/09/25
Time Specimen was Collected: 05:49
08/09/25 Breakfast
Regular
At Your Request: Full Participation
Does patient need a safe tray?: No
Fluid Restriction: 1500 mL/day (50 oz)
08/09/25 08:00
Amlodipine [Norvasc] 2.5 mg PO DAILY
Aspirin Chewable [Low Strength Aspirin] 81 mg PO Daily
Atorvastatin [Lipitor] 40 mg PO DAILY
Cephalexin Monohydrate [Keflex] 500 mg PO BID
Pantoprazole [Protonix] 20 mg PO DAILY
08/09/25 18:00
Finasteride [Proscar] 5 mg PO QPM
Metoprolol Xl [Toprol Xl] 12.5 mg PO QPM
08/09/25 22:00
Famotidine [Pepcid] 20 mg PO HS
Abnormal Lab Results
08/08/25
23:23
WBC 12.5 H 10^3/uL
(4.8-10.8)
RBC 3.34 L 10^6/uL
(4.70-6.10)
Hgb 10.5 L g/dL
(13.0-18.0)
Hct 30.4 L %
(39.0-52.0)
MCH 31.4 H pg
(27.0-31.0)
Abs Immat Gran (auto) 0.1 H 10^3/uL
(0-0.05)
Absolute Neuts (auto) 9.3 H 10^3/uL
(1.4-6.5)
Absolute Monos (auto) 1.2 H 10^3/uL
(0.1-0.6)
Immature Gran % 0.6 H %
(0-0.5)
Lymphocytes % 12.9 L %
(20.5-51.1)
Sodium 127 L mmol/L
(135-145)
BUN 22 H mg/dl
(9-20)
Glucose 107 H mg/dl
(70-99)
08/08/25 23:23
08/08/25 23:23
Vital Signs
Initial and Last Documented VS:
Initial Vital Signs
Temp Pulse Resp BP Pulse Ox
97.1 F 77 16 156/76 100
08/08/25 17:43 08/08/25 17:43 08/08/25 17:43 08/08/25 17:43 08/08/25 17:43
Last Documented Vital Signs
Temp Pulse Resp BP Pulse Ox
98 F 92 20 157/74 98
08/09/25 14:53 08/09/25 14:53 08/09/25 14:53 08/09/25 14:53 08/09/25 14:53
<Bryce Lovett, - Last Filed: 08/09/25 01:23>
Orders/Labs/Results
Orders:
Orders
08/08/25 19:45
Cocaine [Cocaine 4% Topical Solution] 4 ml TOPICAL NOW STA
08/08/25 23:05
Acetaminophen [Tylenol] 1,000 mg PO NOW STA
08/08/25 23:23
Type+Screen Urgent
Basic Metabolic Panel Urgent
Complete Blood Count/With Diff Urgent
08/09/25 04:29
Admit/Transfer Patient As Directed
Co-Sign Provider:
Level of Care: Observation services
Assign to:: Medical/Surgical
Physician / Group: Frances
Diagnosis: epistaxis
08/09/25 04:30
PRN Pain Medication Management As Directed
May give lesser potent ordered pain med per pt: Yes
preference::
Protocol:: Medication orders for pain may be administered in a
manner that supports deferring to patient preference
when the pt is:
- Requesting an ordered lesser potent pain medication.
Least to most potent pain medications are defined
as: acetaminophen < NSAID < tramadol < opioids
(morphine, oxycodone, hydromorphone).
- Requesting a lesser dose of the same medication IF
ORDERED.
- Requesting a less intrusive route of administration
if both routes are prescribed by the provider (PO <
IV).
08/09/25 04:33
Code Status As Directed
Resuscitation Status: Full Code
08/09/25 04:39
0.9% Sodium Chloride 500 ml [Nss] 500 ml IV BOLUS
08/09/25 05:27
Acetaminophen [Tylenol] 650 mg PO Q4HPRN PRN
Bisacodyl [Dulcolax] 10 mg RECTAL [id number] PRN
Docusate W/Senna [Senokot-S] 1 tablet PO BIDPRN PRN
Ondansetron Injectable [Zofran] 4 mg IV Q6HPRN PRN
Polyethylene Glycol Powder [Miralax] 17 grams PO DAILYPRN PRN
08/09/25 05:27
ENT CONSULT Routine
Consulting Provider: Michael Mejias
Was physician already notified: Yes
Activity As Directed
Activity Level: With Assistance
Orthostatic Vital Signs As Directed
Orthostatic VS Frequency: Daily
Pneumatic Compression Sleeves As Directed
Type: Knee high
Vital Signs As Directed
Frequency: Per unit guidelines
DX Deep Vein Thrombosis Video Routine
08/09/25 05:51
Basic Metabolic Panel IN AM
Complete Blood Count/No Diff IN AM
Osmolality, Random Urine Routine
Date Specimen was Collected: 08/09/25
Time Specimen was Collected: 05:49
Urine Sodium Routine
Date Specimen was Collected: 08/09/25
Time Specimen was Collected: 05:49
08/09/25 Breakfast
Regular
At Your Request: Full Participation
Does patient need a safe tray?: No
Fluid Restriction: 1500 mL/day (50 oz)
08/09/25 08:00
Amlodipine [Norvasc] 2.5 mg PO DAILY
Aspirin Chewable [Low Strength Aspirin] 81 mg PO Daily
Atorvastatin [Lipitor] 40 mg PO DAILY
Cephalexin Monohydrate [Keflex] 500 mg PO BID
Pantoprazole [Protonix] 20 mg PO DAILY
08/09/25 18:00
Finasteride [Proscar] 5 mg PO QPM
Metoprolol Xl [Toprol Xl] 12.5 mg PO QPM
08/09/25 22:00
Famotidine [Pepcid] 20 mg PO HS
Abnormal Lab Results
08/08/25
23:23
WBC 12.5 H 10^3/uL
(4.8-10.8)
RBC 3.34 L 10^6/uL
(4.70-6.10)
Hgb 10.5 L g/dL
(13.0-18.0)
Hct 30.4 L %
(39.0-52.0)
MCH 31.4 H pg
(27.0-31.0)
Abs Immat Gran (auto) 0.1 H 10^3/uL
(0-0.05)
Absolute Neuts (auto) 9.3 H 10^3/uL
(1.4-6.5)
Absolute Monos (auto) 1.2 H 10^3/uL
(0.1-0.6)
Immature Gran % 0.6 H %
(0-0.5)
Lymphocytes % 12.9 L %
(20.5-51.1)
Sodium 127 L mmol/L
(135-145)
BUN 22 H mg/dl
(9-20)
Glucose 107 H mg/dl
(70-99)
08/08/25 23:23
08/08/25 23:23
Vital Signs
Initial and Last Documented VS:
Initial Vital Signs
Temp Pulse Resp BP Pulse Ox
97.1 F 77 16 156/76 100
08/08/25 17:43 08/08/25 17:43 08/08/25 17:43 08/08/25 17:43 08/08/25 17:43
Last Documented Vital Signs
Temp Pulse Resp BP Pulse Ox
98 F 92 20 157/74 98
08/09/25 14:53 08/09/25 14:53 08/09/25 14:53 08/09/25 14:53 08/09/25 14:53
Procedures
<DO Zoë Cardenas Last Filed: 08/09/25 19:03>
Nosebleed
Drug treatment: Cocaine
Treatment: local pressure applied and Epistat nasal catheter
Post treatment bleeding: still some oozing
Additional information:
11cc of air placed in pack
<DO Zoë Cardenas Last Filed: 08/09/25 19:03>
MDM/Problems Addressed
Differential Diagnosis Includes:
Anterior nosebleed, posterior nosebleed, thrombocytopenia
<Bryce Case, DO - Last Filed: 08/09/25 19:03>
*Pulse Oximetry
SaO2: 100
Oxygen Mode of Delivery: Room air
Patient hypoxic: no
*Critical Care Note
Total Time (30-74mins, 75-104mins- exclusive of procedures): Not Applicable
<Bryce Lovett, DO - Last Filed: 08/09/25 01:23>
Update Note
Update Note:
Dr. Michael Mejias saw the patient. He recommended patient be observed in the hospital. I spoke with the patient he agreed. Patient to be seen by the hospitalist and admitted to the hospital service for continued observation.
ED Attending Note
<Bryce Case, DO - Last Filed: 08/09/25 19:03>
-
Portions of this chart may have been created with voice recognition software.� Occasional wrong word or��sound alike� substitutions may have occurred due to the inherent limitations of voice recognition software.
Discharge Plan
Departure
Patient Disposition: Admit
Date of Disposition: 08/09/25
Time of Disposition: 01:22
Admit to: Med/Surg
Presentation/result/management discussed w/ accepting MD/DO: Hospitalist
Discharge Problem:
Epistaxis
Interventions
Interventions:
*Risk Screen - Suicide Last Done: 08/08/25 17:43
*General Assessment Last Done: 08/08/25 17:43
*Neglect/Abuse Screening Last Done: 08/08/25 17:43
*ED- Fall Risk Assessment Last Done: 08/08/25 17:43
*ED COVID-19 Vaccine History Last Done: 08/08/25 17:43
*ED Influenza Vaccine History Last Done: 08/08/25 17:43
ED-EENT Assessment Last Done: 08/09/25 01:03
[2025-08-08] MEDS: TYLENOL 1000 MG PO (23:19)
[2025-08-08 23:40] LABS: Hematocrit 30.4 % (39.0-52.0); Hemoglobin 10.5 g/dL (13.0-18.0); Mean Corp Hgb Conc. 34.5 g/dL (33.0-37.0); Mean Corpuscular Volume 91.0 fL (80.0-94.0); Nucleated Red Blood Cells % 0 % (-); Platelet Count 212 10^3/uL (130-400); Red Cell Dist. Width 13.9 % (11.5-14.5)
[2025-08-09 00:02] LABS: Blood Urea Nitrogen 22 mg/dl (9-20); Calcium 9.4 mg/dl (8.4-10.2); Carbon Dioxide 26 mmol/L (22-30); Chloride 98 mmol/L (98-107); Estimated Creatinine Clearance 52 ml/min; Glucose 107 mg/dl (70-99); Potassium 3.9 mmol/L (3.5-5.1); Sodium 127 mmol/L (135-145); eGFR > 60.00
--- NOTE | 2025-08-09 00:21 | CON.MD ---
Consultation - Medical
-
89 yo recently started on Plavix for CVA presents c R sided epistaxis
Still had some oozing after packing placed
Hgb- 10.5, BP - 145/74, pulse 86
PE - clot in oropharyx
Packing removed
No obvious anterior site, had previously had a bleeding site ant/superior septum
7.5 cm pack replaced, inflated c 11 cm air
Sl ooze in post pharynx
A/P Epistaxis on plavix
reasonable control with present packing, may continue to ooze, not heavy at this point
would leave pack in place x 3-4 days, and remove Mon am
would keep for observation at least overnight
follow H & H, Hold Plavix for now
antibiotic prophylaxis, with PCN allergy, can use azithromycin or similar, not sure if also allergic to cephalosporins
Pain meds, and can offer Valium or similar for pt comfort
Would check coag profile, and monitor BP as well
[2025-08-09 02:00] VITALS: BP 140/54
--- NOTE | 2025-08-09 03:56 | HPS.HSE ---
Family Physician
-
Family Physician: Martina Ortega
Chief Complaint
-
Nosebleed
History of Present Illness
Is a 89-year-old who has past medical history significant for hypertension, aortic stenosis status post FIDEL and replacement of the TAVR, recently is status post CVA 10 days ago after right ulnar nerve and carpal tunnel surgery with a 3 mm ACUTE
ISCHEMIC INFARCT in the LEFT POSTERIOR PONTINE TEGMENTUM for which patient was ultimately started on Plavix in addition to her aspirin and now presents to the emergency department with ongoing nosebleed.
Patient reported that he has no history of nosebleeds. Blood pressure is been well-maintained. He is now about 9 days into the course of Plavix when he started having profuse nosebleed. Denies any trauma. He denies feeling dizzy or lightheaded.
He reports multiple chronic bruises to the skin in the setting of his hospitalization but no melena or hematochezia. He had previously been on Plavix after his TAVR for about 6 months without complications. He denies any other medication. He
denies any additional NSAIDs.
In the ED he had a Rhino Rocket placed with achievement of hemostasis. He was seen by ENT and referral was made for observation and repeat ENT evaluation in the morning.
In the ED blood pressure was 140/74 with a pulse of 69 and he was satting 96% on room air.
White count was 12.5 hemoglobin 10.5 and platelet count of 212. Sodium was 127 with a potassium of 3.9 otherwise electrolytes BUN and creatinine were unremarkable.
Medical History
Past Medical History
Past Medical History: Reports CAD (Mid LAD 50% stenosis, mid RCA-cath 11/07/2020), Cancer (Prostate s/p IMRT, skin melanoma s/p Mohs surgery, basal cell carcinoma s/p resection, facial squamous cell carcinoma, s/p Mohs surgery coronary artery
disease), HTN, Hypercholesterolemia, Valvular Disease and Other (Left bundle branch block)
Additional Past Medical History:
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
Past Surgical History: Reports Cardiac ([facility] 02/16/2023), Orthopedic (Meniscal tear s/p arthroscopy, left shoulder tenderness to), Urological (Prostate Ca-IMRT (2005)) and Other (Carpal tunnel surgery)
Social History
Tobacco: Former Smoker (Quit 1963)
Alcohol: Former (Sober 2 years)
Drug: None
Personal:
Living: With Family
Employment: Retired
Family History
Family History: Not pertinent
Allergies / Home Medications
Allergies reflects when Allergies were last updated in [facility].
Home Medications with original date entered in [facility]
Allergy/Medication List:
Allergies
Allergy/AdvReac Type Severity Reaction Status Date / Time
Penicillins Allergy hand Verified 07/28/25 15:58
swelled,
rash
dutasteride AdvReac Unknown abdominal Verified 07/28/25 15:58
pain
tamsulosin AdvReac Unknown abdominal Verified 07/28/25 15:58
pain
Home Medications
ascorbic acid (vitamin C) 500 mg tablet (Vitamin C) 500 mg PO DAILY Supplement 11/07/20
cyanocobalamin (vitamin B-12) 1,000 mcg tablet 1,000 mcg PO DAILY Supplement 11/07/20
finasteride 5 mg tablet 5 mg PO QPM Urinary Issue 12/17/20
atorvastatin 10 mg tablet (Lipitor) 10 mg PO DAILY High Cholesterol 09/24/22
metoprolol succinate 25 mg tablet,extended release 24 hr 12.5 mg PO QPM Blood Pressure 09/24/22
aspirin 81 mg chewable tablet 81 mg PO Daily Blood Clot Prevention/Tx 01/21/23
magnesium 200 mg tablet 200 mg PO DAILY 02/13/25
acetaminophen 325 mg tablet (Tylenol) 650 mg PO DAILYPRN PRN mild pain 07/28/25
amlodipine 2.5 mg tablet (Norvasc) 2.5 mg PO DAILY Blood Pressure 07/28/25
cholecalciferol (vitamin D3) 25 mcg (1,000 unit) tablet (Vitamin D3) 25 mcg PO DAILY Supplement 07/28/25
Review of Systems
-
Constitutional: Reports No Symptoms
EENT: Reports No Symptoms and Other (Epistaxis)
Respiratory: Reports No Symptoms
Cardiac: Reports No Symptoms
Abdomen/GI: Reports No Symptoms
: Reports No Symptoms
Musculoskeletal: Reports No Symptoms
Skin: Reports No Symptoms
Neurological: Reports No Symptoms
Endocrine: Reports No Symptoms
Hematologic/Lymphatic: Reports No Symptoms
Psych: Reports No Symptoms
Physical Exam
Vital Signs
Vital Signs
Temp Pulse Resp BP Pulse Ox
98 F 69 17 145/74 96
08/08/25 22:45 08/09/25 01:45 08/09/25 01:45 08/08/25 22:45 08/09/25 01:45
Physical Exam
General: Well Developed, Well Nourished, No Apparent Distress, Comfortable and Conversant
HEENT: NormoCephalic, Anicteric and Other (Rhino Rocket in the right nares, no oozing or bleeding at this time.)
Respiratory: Clear
Cardiac: S1/S2 and Regular Rhythm
GI: Soft, Non Tender and Non Distended
Musculoskeletal: No Clubbing, No Cyanosis and No Edema
Skin: Warm and Dry
Neuro: AO x 3 and Other (left eye CN as per above, palsy, leftward gaze of left eye, mild left eye ptosis, normal pupillary reflexes bilateral symmetrical )
Psych: Calm
Laboratory Results
-
08/08/25 23:23
08/08/25 23:23
Data Reviewed
-
Lab Data: Labs Reviewed by me
Old Records: Reviewed
Impression/Plan
-
IMPRESSION:
Patient with history of status post TAVR, recent 3 mm acute stroke in the left posterior pontine tegmentum for which she was started on Plavix in addition to his ongoing aspirin and then placed on monitor to evaluate for A-fib presents to the
emergency department with spontaneous epistaxis. Hemostasis achieved in ED via Rhino Rocket and patient seen by ENT.
PLAN:
Epistaxis
- Admit to MedSurg observation
-Plan to leave the packing in place for the next 3 to 4 days and remove in the office on Tuesday morning
-Trend H&H and hold Plavix
- pcn allergy in childhood, No known history of allergies to cephalosporin, will prophylax with Keflex for now
- ENT consult
CVA - Recent CVA, symptoms completely resolved
- continue aspirin, holding plavix
- continue statin
HTN
- continue amlodipine and metoprolol
BPH
- continue finesteride
Hyponatremia - Na dropping since early july. Now down to 127. No SSRI, diuretic or other concerning meds. Has been in and out of the the hospital for surgery and CVA since.
- check urine osm/Na
- free water restriction for now
- orthostatic vs
- gentle hydration
DVT PPX - SCD
Code status - full code
[2025-08-09 04:12] VITALS: BP 137/61
[2025-08-09] MEDS: NSS 500 IV (05:30)
[2025-08-09 06:04] LABS: Hematocrit 31.1 % (39.0-52.0); Hemoglobin 10.7 g/dL (13.0-18.0); Mean Corp Hgb Conc. 34.4 g/dL (33.0-37.0); Mean Corpuscular Volume 93.4 fL (80.0-94.0); Platelet Count 220 10^3/uL (130-400); Red Cell Dist. Width 13.9 % (11.5-14.5)
[2025-08-09 06:28] LABS: Blood Urea Nitrogen 26 mg/dl (9-20); Calcium 9.5 mg/dl (8.4-10.2); Carbon Dioxide 26 mmol/L (22-30); Chloride 99 mmol/L (98-107); Estimated Creatinine Clearance 52 ml/min; Glucose 87 mg/dl (70-99); Potassium 4.3 mmol/L (3.5-5.1); Sodium 133 mmol/L (135-145); eGFR > 60.00
[2025-08-09] MEDS: KEFLEX 500 MG PO (07:30)
[2025-08-09] MEDS: PROTONIX 20 MG PO (07:30)
[2025-08-09] MEDS: LOW STRENGTH ASPIRIN 81 MG PO (07:30)
[2025-08-09] MEDS: LIPITOR 40 MG PO (07:31)
[2025-08-09] MEDS: NORVASC 2.5 MG PO (07:35)
[2025-08-09 07:39] VITALS: BP 157/75
--- NOTE | 2025-08-09 08:38 | W.PN.HOSP.TC ---
Today's Communication/Plan
-
dc
Assessment / Plan
Assessment / Plan
89yo M with PMHx of carpal tunnel syndrome, HTN, HLD, BPH, gio AV, recent acute ischemic stroke discharged from on 07/30/25 since then had intermitent nosebleeds and on the day of admission developed profuse epistaxis. ENT evaluated and
packing placed, planned for removal on 08/12/25, while stopping Plavix, that was started after recent stroke. Hgb stable andminimal pink colored mucus from nostril
A/P:
#Epistaxis
stop plavix
ENT
Packing
Keflex ppx
#Recent CVA
#HLD
#Essential HTN
#BPH
patient reports muscle cramps after increased Lipitor, was offered switch to Rosuvastatin - he wou;ld like to hold off until he will speak with his card
Cont home meds
I have spent at least 59min reviewing chart, test resutls, communication with [employer] and providing direct patient care
Anticipated Discharge: Within 24 hours
Subjective/Interval History
-
Date of Service: August 09, 2025
Objective Data
-
Labs:
Laboratory Results
08/08/25 08/09/25
23:23 05:51
WBC 12.5 H 11.0 H
Hgb 10.5 L 10.7 L
Hct 30.4 L 31.1 L
Plt Count 212 220
Sodium 127 L 133 L
Potassium 3.9 4.3
Chloride 98 99
Carbon Dioxide 26 26
BUN 22 H 26 H
Creatinine 0.9 0.9
Glucose 107 H 87
Calcium 9.4 9.5
Vital Signs:
Vital Signs
Temp Pulse Resp BP Pulse Ox
98.1 F 89 18 157/75 99
08/09/25 07:39 08/09/25 07:39 08/09/25 07:39 08/09/25 07:39 08/09/25 07:39
Review of Systems
-
History Source: Patient
All other systems: Reviewed and negative
Physical Exam
-
General: No Apparent Distress
HEENT: Other (packed R nostril)
Respiratory: Clear to Auscultation
Cardiac: Regular Rhythm
GI: Soft, Nontender and Nondistended
Neuro: Awake, Alert, Oriented and AO x 3
Psych: Calm
--- NOTE | 2025-08-09 11:16 | CM ---
Chart reviewed and ESCOBAR reviewed
Spoke with pt at ED bedside
Lives alone in [facility]. Independent with ADLs and ambulation
DME cane RW and shower chair
Dtr Brayan is here from [place], son Raul is in [facility]
Agreeable to look for more help at home. CM provided a list of in-home assistance agencies to patient
Pt appreciated it
PCP Dr. Martina Ortega
RX plan yes
Pharmacy [facility] in [place]
DCP back to [facility] [place] [facility]
Family can provide transportation
CM will continue to follow up for any dcp needs
[2025-08-09 11:21] VITALS: BP 141/60
--- NOTE | 2025-08-09 14:34 | W.DCSUMMARY ---
Discharge Summary
Discharge Data
Date of Admission: 08/09/25
Date of Discharge: 08/09/25
-
Pending Results: No
Hospital Course
89yo M with PMHx of carpal tunnel syndrome, HTN, HLD, BPH, gio AV, recent acute ischemic stroke discharged from on 07/30/25 since then had intermitent nosebleeds and on the day of admission developed profuse epistaxis. ENT evaluated and
packing placed, planned for removal on 08/12/25, while stopping Plavix, that was started after recent stroke. Hgb stable andminimal pink colored mucus from nostril. As per ENT: hold Plavix over the weekend, cont Keflex for ppx and follow up in the
clinic on 08/12/25. MEdcially stable for d/c home
I have spent at least 59min reviewing chart, test resutls, communication with [employer] and providing direct patient care
Patient was managed for:
#Epistaxis
#Recent CVA
#HLD
#Essential HTN
#BPH
Discharge Plan
-
Patient Disposition: Home (Routine Discharge)
Discharge Diagnosis/Procedures: Epistaxis
Diet: Low Cholesterol
Referrals:
Michael Mejias MD [Active, Otology] - in two days
Referral Note: On Tuesday
Martina Ortega MD [Family Provider, Internal Medicine]
Prescriptions:
New
cephalexin 500 mg Capsule
500 mg PO BID Qty: 10 0RF
Continued
cyanocobalamin (vitamin B-12) 1,000 MCG tablet
1,000 mcg PO DAILY
ascorbic acid (vitamin C) [Vitamin C] 500 MG tablet
500 mg PO DAILY
finasteride 5 MG tablet
5 mg PO QPM
metoprolol succinate 25 MG tablet extended release 24 hr
12.5 mg PO DAILY
aspirin 81 MG tablet,chewable
81 mg PO Daily
magnesium 200 mg Tablet
200 mg PO DAILY
acetaminophen [Tylenol] 325 mg Tablet
650 mg PO DAILYPRN PRN (Reason: mild pain)
amlodipine [Norvasc] 2.5 mg Tablet
2.5 mg PO QPM
cholecalciferol (vitamin D3) [Vitamin D3] 25 mcg (1,000 unit) Tablet
25 mcg PO DAILY
atorvastatin 40 mg Tablet
40 mg PO DAILY Qty: 30 0RF
zinc sulfate 50 mg zinc (220 mg) Tablet
50 mg PO DAILY
potassium 99 mg Tablet
99 mg PO DAILY
Held
clopidogrel 75 mg Tablet
75 mg PO DAILY Qty: 20 0RF
Hold Instructions: Until ENT told to restart
Discharge Orders:
Discharge Patient (As Directed); Ordered 08/09/25
Ordered By: Russ Lazaro
Discharge Date and Time
Print Language: AZERBAIJANI
[2025-08-09 14:53] VITALS: BP 157/74
--- NOTE | 2025-08-09 15:23 | CM ---
CM reviewed chart and noted dc order
Bedside meeting with pt and discussion with nursing
Plan for pt to dc home with packing which will removed outpt
No dc needs noted
Pt has called family already for ride home
Discharge Disposition- home,no needs, family transport
== END 2025-08-09 16:36 | disposition home or self-care (01) ==
LOC: ED 04:41
PROVIDERS: ADMITTING PHYSICIAN Internal Medicine; ATTENDING PHYSICIAN Internal Medicine; CONSULT PHYSICIAN Otolaryngology; EMERGENCY PHYSICIAN Emergency Medicine; FAMILY PHYSICIAN Internal Medicine
DX: R04.0 Epistaxis (principal); I10 Essential (primary) hypertension; N40.0 Benign prostatic hyperplasia without lower urinary tract symptoms; E78.5 Hyperlipidemia, unspecified; E87.1 Hypo-osmolality and hyponatremia; Z79.02 Long term (current) use of antithrombotics/antiplatelets; Z79.899 Other long term (current) drug therapy; Z79.82 Long term (current) use of aspirin; Z86.73 Personal history of transient ischemic attack (TIA), and cerebral infarction without residual deficits; Z87.891 Personal history of nicotine dependence
CPT/HCPCS: 30901; 80048; 83935; 84300; 85025; 85027; 86850; 86900; 86901; 99284; G0378

== ENCOUNTER → 2025-08-20 11:53 | Outpatient (REF) | payer OTHER, SELFPAY ==
[2025-08-20 15:34] LABS: Hematocrit 31.3 % (39.0-52.0); Hemoglobin 10.0 g/dL (13.0-18.0); Mean Corp Hgb Conc. 31.9 g/dL (33.0-37.0); Mean Corpuscular Volume 97.2 fL (80.0-94.0); Nucleated Red Blood Cells % 0 % (-); Platelet Count 264 10^3/uL (130-400); Red Cell Dist. Width 14.3 % (11.5-14.5)
[2025-08-20 15:43] LABS: ALT (SGPT) 40 U/L (0-50); AST (SGOT) 31 U/L (17-59); Albumin 3.9 g/dl (3.5-5.0); Alkaline Phosphatase 132 U/L (38-126); Blood Urea Nitrogen 17 mg/dl (9-20); Calcium 10.0 mg/dl (8.4-10.2); Carbon Dioxide 26 mmol/L (22-30); Chloride 96 mmol/L (98-107); Glucose 95 mg/dl (70-99); Potassium 4.9 mmol/L (3.5-5.1); Sodium 127 mmol/L (135-145); Total Protein 6.9 g/dl (6.3-8.2); Uric Acid 5.2 mg/dl (3.5-8.5); eGFR > 60.00
== END ==
LOC: HWLAB 11:53
PROVIDERS: ATTENDING PHYSICIAN Internal Medicine Rheumatology; FAMILY PHYSICIAN Internal Medicine Gastroenterology; OTHER PHYSICIAN Internal Medicine
DX: L29.81 Cholestatic pruritus (principal); K74.60 Unspecified cirrhosis of liver; D64.9 Anemia, unspecified; M11.20 Other chondrocalcinosis, unspecified site; M17.0 Bilateral primary osteoarthritis of knee; M1A.09X0 Idiopathic chronic gout, multiple sites, without tophus (tophi); M79.675 Pain in left toe(s); Z51.81 Encounter for therapeutic drug level monitoring
CPT/HCPCS: 36415; 80053; 82248; 84550; 85025

== ENCOUNTER → 2025-09-27 08:49 | Outpatient (REF) | payer OTHER, SELFPAY ==
[2025-09-27 10:03] LABS: Hematocrit 33.1 % (39.0-52.0); Hemoglobin 11.2 g/dL (13.0-18.0); Mean Corp Hgb Conc. 33.8 g/dL (33.0-37.0); Mean Corpuscular Volume 93.2 fL (80.0-94.0); Nucleated Red Blood Cells % 0 % (-); Platelet Count 190 10^3/uL (130-400); Red Cell Dist. Width 13.9 % (11.5-14.5)
[2025-09-27 10:53] LABS: ALT (SGPT) 21 U/L (0-50); AST (SGOT) 24 U/L (17-59); Albumin 4.3 g/dl (3.5-5.0); Alkaline Phosphatase 124 U/L (38-126); Blood Urea Nitrogen 21 mg/dl (9-20); Calcium 10.0 mg/dl (8.4-10.2); Carbon Dioxide 25 mmol/L (22-30); Chloride 100 mmol/L (98-107); Glucose 90 mg/dl (70-99); HDL Cholesterol 56 mg/dl; LDL Cholesterol, Calculated 89 mg/dl; Potassium 4.7 mmol/L (3.5-5.1); Sodium 133 mmol/L (135-145); Total Protein 7.2 g/dl (6.3-8.2); Very Low Density Lipoprotein 8 mg/dl (0-30); eGFR > 60.00
[2025-09-27 11:14] LABS: Uric Acid 6.6 mg/dl (3.5-8.5)
== END ==
LOC: REG 08:49
PROVIDERS: ATTENDING PHYSICIAN Internal Medicine; OTHER PHYSICIAN Internal Medicine Gastroenterology
DX: E78.5 Hyperlipidemia, unspecified (principal); D64.9 Anemia, unspecified; M11.20 Other chondrocalcinosis, unspecified site; M17.0 Bilateral primary osteoarthritis of knee; M1A.09X0 Idiopathic chronic gout, multiple sites, without tophus (tophi); M79.675 Pain in left toe(s); Z51.81 Encounter for therapeutic drug level monitoring
CPT/HCPCS: 36415; 80053; 80061; 84550; 85025